=== PATIENT | female | born 1985 | race Caucasian/White ===

== ENCOUNTER 2024-07-21 16:45 | Emergency (ER) | payer OTHER, SELFPAY ==
[2024-07-21 17:01] VITALS: BP 122/85; PULSE 85; RESP 16; TEMP 36.9; O2SAT 99; BMI 34.3
[2024-07-21 17:17] LABS: Microscopic, Urine URINE MICROSCOPIC (MICROSCOPIC)
[2024-07-21 17:17] LABS: Basophils # 0.1 K/mm3 (0-0.2); Basophils % 0.7 % (0.1-2.0); Eosinophils # 0.1 K/mm3 (0.0-0.4); Eosinophils % 1.2 % (0.1-12.0); Hematocrit 40.3 % (37.0-47.0); Hemoglobin 13.4 g/dL (12.2-16.2); Lymphocytes % 28.7 % (10-50); Mean Corpuscular HGB Conc 33.3 g/dL (31.8-35.4); Mean Corpuscular Hemoglobin 28.4 pg (27.0-31.2); Mean Corpuscular Volume 85.4 fl (81-99); Monocytes # 0.7 K/mm3 (0.1-1.0); Monocytes % 9.8 % (1.7-9.3); Neutrophils # 4.1 K/mm3 (1.8-7.8); Neutrophils % 59.5 % (37.0-80.0); Nucleated Red Blood Cells # 0 10^3/uL; Nucleated Red Blood Cells % 0 %; Platelet Count 291 K/mm3 (142-424); Red Blood Count 4.72 M/mm3 (4.20-5.40); Red Cell Distribution Width 13.2 % (11.5-17.5); Red Cell Distribution Width-SD 41.7 fL; White Blood Count 6.9 K/mm3 (4.8-10.8)
[2024-07-21 17:29] LABS: Albumin Level 3.7 g/dl (3.5-5.0); Chloride 105 mmol/L (98-107); Sodium 139 mmol/L (136-145)
[2024-07-21 17:32] LABS: Alanine Aminotransferase 24 U/L (12-78); Albumin/Globulin Ratio 1.2 (1.1-1.8); Alkaline Phosphatase 68 U/L (38-126); Aspartate Amino Transferase 26 U/L (14-36); Bilirubin,Total 0.6 mg/dl (0.2-1.3); Blood Urea Nitrogen 8 mg/dl (7-17); Calcium 8.5 mg/dl (8.4-10.2); Carbon Dioxide 28 mmol/L (22.0-30.0); Creatinine Clearance Estimated 163 mL/min (50-200); Estimated Glomerular Filt Rate 93 ml/min (>60); GFR (African American) 112 ML/MIN (>60); Glucose 103 mg/dl (74-100); Lipase 95 U/L (23-300); Total Protein,Serum 6.7 g/dl (6.3-8.2)
[2024-07-21 17:45] LABS: Appearance,Urine CLEAR (Clear); Bilirubin,Urine Negative (Negative); Blood, Urine Negative (Negative); Color,Urine YELLOW (Yellow); Glucose,Urine (UA) Negative (Negative); Ketones,Urine Negative (Negative); Leukocyte Esterase,Urine 2+ (Negative); Nitrate,Urine Negative (Negative); Protein,Urine Negative (Negative); Urobilinogen,Urine 0.2 EU/dl (0.2)
--- NOTE | 2024-07-21 17:45 | CT_ITS ---
PROCEDURE INFORMATION: Exam: CT Abdomen And Pelvis With Contrast Exam date and time: 07/21/2024 6:26 PM Age: 39 years old Clinical indication: Nausea and vomiting; Additional info: Lower abd pain, n, v, d TECHNIQUE: Imaging protocol: Computed tomography of the abdomen and pelvis with contrast. Radiation optimization: All CT scans at this facility use at least one of these dose optimization techniques: automated exposure control; mA and/or kV adjustment per patient size (includes targeted exams where dose is matched to clinical indication); or iterative reconstruction. Contrast material: ISOVUE; Contrast volume: 75 ml; Contrast route: IV; COMPARISON: No relevant prior studies available. FINDINGS: Diaphragm: Small hiatal hernia Liver: Normal. No mass. Gallbladder and biliary ducts: Cholecystectomy Pancreas: Normal. No ductal dilation. Spleen: Normal. No splenomegaly. Adrenal glands: Normal. No mass. Kidneys and ureters: There is no evidence of renal or ureteral calcifications. Stomach and bowel: Sutures in the stomach. Diverticulosis of the rectosigmoid. No diverticulitis. No obstruction Appendix: Normal appendix Intraperitoneal space: Unremarkable. No free air. No significant fluid collection. Vasculature: Unremarkable. No abdominal aortic aneurysm. Lymph nodes: Unremarkable. No enlarged lymph nodes. Urinary bladder: Unremarkable as visualized. Reproductive: IUD in good position in the uterus Bones/joints: Unremarkable. No acute fracture. Soft tissues: Unremarkable. IMPRESSION: No acute findings.
--- NOTE | 2024-07-21 17:46 | ED_ITS ---
<Statement entered by Mattie Cifuentes DO - 07/21/24 23:33> I was consulted by the TATI, and we discussed the complexity of the problems being addressed. I approved the treatment and management plan for this patient's care in the emergency department, thus performing a substantive portion of the medical decision making. Mattie Cifuentes DO Discharge Plan Disposition Patient Disposition: Home, Self-Care Condition: Good Prescriptions Prescriptions: New ondansetron 4 mg tablet,disintegrating 4 mg PO Q6H PRN (Reason: nausea and vomiting) Qty: 10 0RF Clinical Impressions Clinical Impression: Abdominal pain, Nausea vomiting and diarrhea Instructions Patient Instructions: DI for Acute Abdominal Pain Print Language Print Language: Spanish Discharge ED Provider: Mattie Cifuentes General Adult HPI General Chief complaint: Abdominal Pain Stated complaint: Stomach pain,Denies V/N Time Seen by Provider: 07/21/24 17:39 Mode of Arrival: Ambulatory Source of Information: Patient Limitations: No Limitations Description of Symptoms (Recalled from ER Triage Doc. by RN): pt to the ED with lower abdominal pain that radiates to her RUQ and is a sharp pain at times with nausea and vomiting since last night. pt also reports she notices her pain will elevate her heart rate at times which makes her nervous because she has a history of POTS History of Present Illness HPI narrative: 39-year-old female presents emergency department with a 1 to 2-day history of nausea vomiting abdominal pain and diarrhea, with poor p.o. intake. Patient states that around Saturday night she started feeling nauseous , after she ate some Maced[place] , she started having abdominal cramping/pain yesterday night, as well as having vomiting, and diarrhea today, somewhat localized to the right upper quadrant, but mainly diffuse. Denies any urinary type symptomatology, denies melena, hematochezia, hematemesis, or hemoptysis, denies any chest pain shortness of breath, denies any fever or chills, cough or congestion. Does endorse recent sick contacts being work . Other past medical history consistent with PCOS, POTS syndrome, prior history of gastric sleeve, denies any alcohol tobacco or drug use. Initial triage vitals are unremarkable. Onset (ago): day(s) Related Data Previous Rx's ?Medication ?Instructions ?Recorded ondansetron 4 mg disintegrating 4 mg PO Q6H PRN nausea and 07/21/24 tablet vomiting #10 tabs Allergies Allergy/AdvReac Type Severity Reaction Status Date / Time amoxicillin (From Augmentin) Allergy Rash Verified 07/21/24 17:07 clavulanic acid (From Allergy Rash Verified 07/21/24 17:07 Augmentin) Sulfa (Sulfonamide Allergy Swelling Verified 07/21/24 17:07 Antibiotics) of the Eye [facility] Disclaimer: The information contained in this section may have been updated after the patient was seen, as this information can be updated by other users. Social History Smoking Status: Current every day smoker alcohol intake: never current occupational status: other Travel in the last 8 weeks: None ROS Obtained: Yes All systems reviewed & no additional complaints except as documented Physical Exam General General appearance: alert and in no apparent distress Head Head exam: atraumatic and normocephalic Eye Eye exam: Present PERRL and EOMI ENT ENT exam: Present mucous membranes moist Neck Neck exam: Present normal inspection Chest Chest inspection: Present normal inspection and symmetric chest wall rise Respiratory Respiratory exam: Present normal lung sounds bilaterally; Absent respiratory distress Cardiovascular Cardiovascular exam: Present regular rate and normal rhythm Abdominal Exam Abdominal exam: Present soft and tenderness Abdominal tenderness: Present epigastrium, diffuse and mild Comment: There is mild diffuse abdominal pain to palpation, with some increased pain to the epigastrium region. Extremities Exam Extremities exam: Present normal inspection Neurological Exam Neurological exam: Present alert and oriented X3 Psychiatric Psychiatric exam: Present normal affect Skin Skin exam: Present warm and dry Medical Decision Making Medical Records Medical records reviewed: Yes I reviewed the patient's medical records. Screening: Per USPSTF and CDC recommendations, given the prevalence of disease in our region, it is our hospital?s policy to screen for HIV and viral Hepatitis for all patients aged 18 and over and those with ongoing risk factors. Yvon Inquiry Pt receiving controlled substance: No Yvon was queried for this patient: No Vital Signs: 07/21/24 17:01 Temperature 98.5 F Temperature Source Oral Pulse Rate [Left Radial] 85 Respiratory Rate 16 Blood Pressure [Right Arm] 122/85 Blood Pressure Mean [Right Arm] 97 Blood Pressure Source [Right Arm] Automatic Cuff Blood Pressure Position [Right Arm] Sitting 02 Sat by Pulse Oximetry 99 Oxygen Delivery Method Room Air Lab Data Lab results reviewed: Yes I reviewed the patient's lab results. Lab Results 07/21/24 17:09: WBC 6.9, RBC 4.72, Hgb 13.4, Hct 40.3, MCV 85.4, MCH 28.4, MCHC 33.3, RDW 13.2, Plt Count 291, MPV 10.0, Neut % (Auto) 59.5, Lymph % (Auto) 28.7, Noble % (Auto) 9.8 H, Eos % (Auto) 1.2, Baso % (Auto) 0.7, Neut # (Auto) 4.1, Lymph # (Auto) 2.0, Noble # (Auto) 0.7, Eos # (Auto) 0.1, Baso # (Auto) 0.1, Sodium 139, Potassium 4.0, Chloride 105, Carbon Dioxide 28, Anion Gap 10.0, BUN 8, Creatinine 0.70, Estimated Creat Clear 163, Estimated GFR 93, Est GFR ( Amer) 112, Glucose 103 H, Calcium 8.5, Total Bilirubin 0.6, AST 26, ALT 24, Alkaline Phosphatase 68, Total Protein 6.7, Albumin 3.7, Globulin 3.0, Albumin/Globulin Ratio 1.2, Lipase 95 07/21/24 17:14: Urine Color Yellow, Urine Appearance Clear, Urine pH 7.0, Ur Specific [place] 1.010, Urine Protein Negative, Urine Glucose (UA) Negative, Urine Ketones Negative, Urine Blood Negative, Urine Nitrate Negative, Urine Bilirubin Negative, Urine Urobilinogen 0.2, Ur Leukocyte Esterase 2+ A, Urine RBC 3-5, Urine WBC 3-5, Ur Squamous Epith Cells 3-5, Urine Bacteria Trace 07/21/24 17:09 07/21/24 17:09 Orders (Tests/Meds): ED MEDICATIONS Generic Name Dose Route Start Last Admin Trade Name Freq PRN Reason Stop Dose Admin Sodium Chloride 10 ml 07/21/24 18:28 07/21/24 18:29 Sodium Chloride 0.9% 10ml Syr (Rad Only) IV 08/20/24 18:27 10 ml NEEDED PRN Administration Maintain IV Site Discontinued Medications Generic Name Dose Route Start Last Admin Trade Name Freq PRN Reason Stop Dose Admin Diphenhydramine HCl 50 mg 07/21/24 18:17 07/21/24 18:20 Diphenhydramine 50mg/Ml Vial IV 07/21/24 18:18 50 mg ONCE ONE Administration Iopamidol 75 ml 07/21/24 18:28 07/21/24 18:29 Iopamidol-370 (76%);100ml Bottle IV 07/21/24 18:29 75 ml ONCE ONE Administration Morphine Sulfate 4 mg 07/21/24 17:45 07/21/24 18:10 Morphine 4mg/Ml Syringe IV 07/21/24 17:46 4 mg ONCE ONE Administration Ondansetron HCl 4 mg 07/21/24 17:45 07/21/24 18:10 Ondansetron 4mg/2ml Vial IV 07/21/24 17:46 4 mg ONCE ONE Administration ORDERS Category Date Time Status CT abdomen pelvis w con Stat Cat Scan 07/21/24 17:45 Completed Complete Blood Count Auto Diff Stat Lab 07/21/24 17:09 Completed Comprehensive Metabolic Panel Stat Lab 07/21/24 17:09 Completed Lipase Stat Lab 07/21/24 17:09 Completed Urinalysis and Microscopic Stat Lab 07/21/24 17:14 Completed Urine Culture Stat Micro 07/21/24 17:14 Received Medical Decision Narrative: 39-year-old female presents emergency department abdominal pain nausea vomiting diarrhea, differential diagnose include not limited to, gastroenteritis, ileitis, colitis, acute UTI, acute pyelonephritis, nephrolithiasis, ureterolithiasis, pancreatitis, appendicitis, cholecystitis, cholelithiasis, choledocholithiasis. Discussed patient case with attending physician Will obtain basic laboratory studies, lipase level, urinalysis, CT ab pelvis with contrast, will give 4 mg morphine for pain and 4 mg IV Zofran for nausea. CBC and CMP are grossly unremarkable, lipase within normal limits. Urinalysis noted for 2+ leukocyte esterase. Patient received 4 mg IV morphine, did have some itching with this, give 50 mg IV Benadryl, I saw and examined the patient after this, patient did have some wheal formation around the IV site, unsure if this is from IV, or morphine administration. No signs of anaphylaxis shortness of breath at this time, she has no other new complaints. Patient has 3-5 RBCs, 3-5 WBCs, 3-5 squamous cells and trace urine bacteria. I reviewed the patient CT abdomen pelvis with contrast along the corresponding radiologic report, no acute findings. Reexamination of the patient at approximately 7:20 PM, patient is cleared to be discharged home to self-care, discussed all results with the patient over the bedside, laboratory studies unremarkable, urinalysis has some weeks and Estr[place], however patient does not have any dysuria or hematuria. Patient could be discharged home to self-care, most likely musculoskeletal in nature./Viral etiology. Will prescribe 4 mg p.o. Zofran sublingual as needed for nausea and vomiting. Patient voiced understanding agreed to plan/discharge plan. Patient will follow-up with PCP as directed. Strict ED return precaution given. Critical Care Critical Care Time Critical Care Time: No
[2024-07-21] MEDS: ONDANSETRON 4MG/2ML VIAL 4 MG IV (18:10)
[2024-07-21] MEDS: MORPHINE 4MG/ML SYRINGE 4 MG IV (18:10)
[2024-07-21] MEDS: diphenhydrAMINE 50MG/ML VIAL 50 MG IV (18:20)
[2024-07-21 18:23] LABS: Bacteria,Urine Trace /lpf
[2024-07-21] MEDS: SODIUM CHLORIDE 0.9% 10ML SYR (RAD ONLY) 10 ML IV (18:29)
[2024-07-21] MEDS: IOPAMIDOL-370 (76%);100ML BOTTLE 75 ML IV (18:29)
[2024-07-21 19:39] VITALS: BP 134/87; PULSE 72; RESP 16; TEMP 36.7; O2SAT 99
--- NOTE | 2024-07-23 09:52 | PC.NURSE ---
I discussed the final urine culture results with . No change in treatment plan needed at this time
== END 2024-07-21 19:41 | disposition home or self-care (01) ==
PROVIDERS: Emergency Provider Emergency Medicine
DX: R10.84 Generalized abdominal pain (principal); R11.2 Nausea with vomiting, unspecified; R19.7 Diarrhea, unspecified
CPT/HCPCS: 74177; 80053; 81001; 83690; 85025; 87086; 96374; 96375; 99285; J1200; J2270; J2405; Q9967

== ENCOUNTER 2024-07-27 09:39 | Outpatient (CLI) | payer OTHER, SELFPAY ==
--- NOTE | 2024-07-27 09:42 | XR_ITS ---
FINAL REPORT CLINICAL HISTORY: Lt wrist pain COMPARISON: None FINDINGS: AP, oblique, and lateral views of the left wrist were obtained. There is no prior exam for comparison. There is no acute fracture or dislocation. Multijoint degenerative change is present, most prominent involving the articulation between the scaphoid and the distal row of carpal bones. The soft tissues are normal. IMPRESSION: No acute osseous abnormality of the left wrist. Multijoint degenerative change, most pronounced involving the articulation between the scaphoid and the distal row of carpal bones. Reviewed, Interpreted and Dictated by Oriana Talavera MD Transcribed by Nadine Anderson Authenticated and [facility]
--- NOTE | 2024-07-27 09:42 | XR_ITS ---
FINAL REPORT CLINICAL HISTORY: Lt elbow pain COMPARISON: None FINDINGS: AP, oblique, and lateral views of the right elbow were obtained. There is no prior exam for comparison. There is no acute fracture or dislocation. Joint space is preserved. There is no joint effusion or other soft tissue abnormality. IMPRESSION: No acute osseous abnormality of the right elbow. Reviewed, Interpreted and Dictated by Oriana Talavera MD Transcribed by Nadnie Anderson Authenticated and [facility]
== END 2024-07-27 23:59 | disposition home or self-care (01) ==
LOC: RAD 09:39
PROVIDERS: Visit Provider Physician Assistant
DX: M25.532 Pain in left wrist (principal); M25.522 Pain in left elbow
CPT/HCPCS: 73080; 73110

== ENCOUNTER 2024-08-12 09:37 | Outpatient (CLI) | payer OTHER, SELFPAY ==
[2024-08-12 09:39] VITALS: BMI 34.3
--- NOTE | 2024-08-12 10:06 | ECG_ITS ---
APPROVED REPORT Exam: Resting ECG HR:80 bpm ECG Measurements Heart Rate 80 AXES MA 150 P 34 QRSd 89 QRS 9 QT 355 T 9 QTc 391 Conclusion SINUS RHYTHM MODERATE VOLTAGE CRITERIA FOR LVH, CONSIDER NORMAL VARIANT [MEETS CRITERIA IN ONE OF: R(aVL), S(V1), R(V5), R(V5/V6)+S(V1)] BORDERLINE ECG UNCONFIRMED REPORT Electronically signed by : Dilip Sage MD 08/16/2024 06:43:01
[2024-08-12 10:17] LABS: Basophils # 0.1 K/mm3 (0-0.2); Basophils % 0.8 % (0.1-2.0); Eosinophils # 0.2 Kmm3 (0.0-0.4); Eosinophils % 2.7 % (0.1-12.0); Hematocrit 40.9 % (37.0-47.0); Hemoglobin 13.8 g/dL (12.2-16.2); Immature Granulocytes # 0.02 10^3uL; Immature Granulocytes % 0.3 %; Lymphocytes # 2.2 K/mm3 (0.7-4.5); Lymphocytes % 27.9 % (10-50); Mean Corpuscular HGB Conc 33.7 g/dL (31.8-35.4); Mean Corpuscular Hemoglobin 29.1 pg (27.0-31.2); Mean Corpuscular Volume 86.3 fl (81-99); Mean Platelet Volume 9.7 fl (7.4-10.4); Monocytes # 0.6 K/mm3 (0.1-1.0); Monocytes % 7.9 % (1.7-9.3); Neutrophils # 4.7 K/mm3 (1.8-7.8); Neutrophils % 60.4 % (37.0-80.0); Nucleated Red Blood Cells # 0 10^3/uL; Nucleated Red Blood Cells % 0 %; Platelet Count 273 K/mm3 (142-424); Red Blood Count 4.74 M/mm3 (4.20-5.40); Red Cell Distribution Width 13.4 % (11.5-17.5); Red Cell Distribution Width-SD 42.4 fL; White Blood Count 7.8 K/mm3 (4.8-10.8)
[2024-08-12 10:28] LABS: Anion Gap 4.9 mEq/L (5-15); Blood Urea Nitrogen 6 mg/dl (7-17); Calcium 8.5 mg/dl (8.4-10.2); Carbon Dioxide 28 mmol/L (22.0-30.0); Chloride 109 mmol/L (98-107); Creatinine Clearance Estimated 190 mL/min (50-200); Estimated Glomerular Filt Rate 111 ml/min (>60); GFR (African American) 134 ML/MIN (>60); Glucose 81 mg/dl (74-100); Potassium 3.9 mmoL/L (3.5-5.1); Sodium 138 mmol/L (136-145)
[2024-08-12 11:02] LABS: HCG Qualitative, Serum Negative (Negative)
== END 2024-08-12 23:59 | disposition home or self-care (01) ==
LOC: PREOP 09:38
PROVIDERS: PCP Nurse Practitioner; Visit Provider Orthopaedic Surgery
DX: Z01.810 Encounter for preprocedural cardiovascular examination (principal); Z01.812 Encounter for preprocedural laboratory examination; R94.31 Abnormal electrocardiogram [ECG] [EKG]
CPT/HCPCS: 80048; 84703; 85025; 93005

== ENCOUNTER 2024-08-19 08:09 | Day surgery (SDC) | payer OTHER, SELFPAY ==
--- NOTE | 2024-08-11 10:51 | SUR.PREOP ---
Pt no-show for PAT appointment on 08/11. VM left requesting call to reschedule. Dr. Mortensen's office notified.
[2024-08-12 12:21] VITALS: BMI 34.3
[2024-08-19] VITALS (13 sets, daily range): BP systolic 105–157; BP diastolic 72–89; PULSE 72–104; RESP 16–22; TEMP 36.3–36.4; O2SAT 93–99
[2024-08-19 08:31] LABS: Urine Pregnancy, HCG Qual. Negative (Negative)
[2024-08-19] MEDS: LACTATED RINGERS 1000ML 1,000 ML 100 ML IV (08:57)
[2024-08-19] MEDS: CLINDAMYCIN PHOSPHATE/D5W 900 MG/50 ML PIGGYBACK 100 MG IV (10:40)
--- NOTE | 2024-08-19 12:14 | P.OP_ITS ---
Date of procedure: 08/19/24 Pre-op Diagnosis:: 1. Left carpal tunnel syndrome 2. Left cubital tunnel syndrome Post-op Diagnosis:: Same Procedure performed:: 1. Left endoscopic carpal tunnel release 2. Left ulnar nerve decompression at the elbow, cubital tunnel release Surgeon:: Paresh Mortensen DO Lens Coating Technician(s):: Pepito DOLL RAD TECHNOLOGIST:: Mango Milton Anesthesia: GETA Estimated blood loss (mL): 0 Operative findings:: See dictation Operative note:: Patient was identified preoperatively. Left upper extremity marked with yes my initials. Transferred operative suite placed upon the brain bed. General anesthesia workers compensation claims analyst airway secured. Left upper extremity prepped and draped normal sterile fashion. Once prepped and draped final operative timeout performed to identify proper patient procedure and extremity. Everyone involved the case agreed. There is no counter indications beginning. Did receive preoperative antibiotics. Marking pen was used to magi plan incision over the volar wrist for the endoscopic carpal tunnel and over the cubital tunnel at the left elbow. Esmarch was used to exsanguinate the extremity pneumatic tourniquet inflated to 250 mmHg. Attention was initially brought to the wrist skin knife was used to incise through the skin at the transverse carpal ligament retractors were placed dissection was taken down to identify the most proximal aspect of the transverse carpal ligament. Once this was identified the opening dilator followed by the larger dilator followed by the 4.0 mm sled was placed into the carpal tunnel. Camera was then introduced and the transverse carpal ligament clearly seen within the camera view. The endoscopic probe was utilized to identify the most distal aspect of the transverse carpal ligament rasp was used to remove the soft tissue from the undersurface. And then the hook blade from the [employer] endoscopic carpal tunnel set was introduced and under direct visualization transection of the transverse carpal ligament was performed. This was directly visualized. Irrigation of the wound performed. Skin closed with subcuticular Monocryl suture with a sterile dressing applied. Attention was then brought to the elbow. The elbow was flexed on the hand table bony landmarks were confirmed with the medial epicondyle and tip of the olecranon in the anatomical cubital tunnel. Skin knife was used incise through skin careful dissection taken down meticulously at the cubital tunnel to identify the ulnar nerve. Once this was identified I dissected very meticulously both proximally and distally for full release of Doyle's ligament and the cubital tunnel. Dissection was then taking proximally up to the arcade of [place] the aponeurotic band was located and released attention was then brought down through the cubital tunnel to distally the muscle fibers from the flexor digitorum superficialis facialis to the flexor carpi all naris were released to make sure there is no compression distally of these muscle fibers and fibrous bands once completely released both proximally and distally irrigation of the wound performed. Touching digitally the nerve there was a motor response at the wrist. The appearance of the nerve appeared normal. The there was however a dense fibrous tissue and scarring around the cubital tunnel prior to release. Irrigation of the wound performed deep layers closed with Vicryl subcuticular Monocryl Steri-Strips sterile dressing placed from wrist to mid upper arm. Patient waken anesthesia taken recovery in stable condition with a sling on Condition: stable Disposition: PACU Complications:: None apparent
--- NOTE | 2024-08-19 12:34 | P.PNANES_ITS ---
[facility] Anesthesia Record Part I Anesthesia Record I Intake, IV Amount: 700 Hydration: Adequate Estimated blood loss (mL): 0 Urine output (mL): 0 Blood Products used (#): none Blood Pressure: 157/88 SaO2: 95 Pulse Rate: 104 Airway Patency: Patent Respiratory Rate: 22 Temperature: 97.4 F Patient is:: Drowsy and Stable Stable to PACU at:: 12:28
--- NOTE | 2024-08-19 12:39 | EXP.ANES.I ---
[facility] Anesthesia Record Part I Anesthesia Record I Intake, IV Amount: 700 Hydration: Adequate Estimated blood loss (mL): 0 Urine output (mL): 0 Blood Products used (#): none Blood Pressure: 157/88 SaO2: 95 Pulse Rate: 104 Airway Patency: Patent Respiratory Rate: 22 Temperature: 97.4 F Patient is:: Drowsy and Stable Stable to PACU at:: 12:28
[2024-08-19] MEDS: KETOROLAC 30MG/ML VIAL 30 MG IV (12:48)
[2024-08-19] MEDS: HYDROMORPHONE 2MG/ML SYRINGE 0.5 MG IV ×4 (12:55→13:21)
[2024-08-19] MEDS: ONDANSETRON 4MG/2ML VIAL 4 MG IV (13:06)
[2024-08-19] MEDS: PROMETHAZINE HCL 25MG/ML 1ML VIAL 6.25 MG IV (13:18)
--- NOTE | 2024-08-19 13:35 | SUR.PHASEI ---
Patient's vital signs stable. Patient transported to post op at this time. Report given to KATARINA Pleitez. Pt still reports pain a 9/10 on pain scale after 2mg Dilaudid. Patient states that arm continues to throb while drinking and tolerating her pepsi. Pt also resting comfortably before transporting.
--- NOTE | 2024-08-20 13:41 | EXP.ANES.II ---
[facility] Anesthesia Record Part II Anesthesia Record Part II Discharge Time: 13:24 Destination: Surgical Day Care (OP Surgery) PACU nurse assessment reviewed?: Yes Patient Condition:: Good Anesthesia Complications:: None Swallowing reflex intact?: Yes Airway Patency: Patent Cyanosis?: No Blood Pressure: 132/72 SaO2: 98 Respiratory Rate: 18 Pulse Rate: 84 Temperature: 97.4 F Mental Status: Alert & Oriented Pain level:: 8 Nausea and/or vomitting:: Nauseated Intake, IV Amount: 0 Hydration: Adequate
[2024-08-20 13:42] VITALS: BP 132/72; PULSE 84; RESP 18; TEMP 36.3; O2SAT 98
== END 2024-08-19 13:55 | disposition home or self-care (01) ==
PROVIDERS: PCP Nurse Practitioner; Visit Provider Orthopaedic Surgery
PROC: (CPT 64721; principal; 2024-08-19 09:00)
DX: G56.02 Carpal tunnel syndrome, left upper limb (principal); G56.22 Lesion of ulnar nerve, left upper limb
CPT/HCPCS: 29848; 64718; 81025; 96374; J0736; J1100; J1171; J1885; J2250; J2405; J2550; J3010; J7120

== ENCOUNTER 2024-10-04 19:33 | Emergency (ER) | payer MEDICAID, SELFPAY ==
[2024-10-04 19:42] VITALS: BP 138/85; PULSE 80; RESP 20; TEMP 36.7; O2SAT 98; BMI 40.8
--- OUTSIDE RECORDS SUMMARY | 2024-10-04 19:43 | XMS_ITS | Data Portability ---
Author Organization [place] [facility] [place] & [place] [facility] Address [address] [place] [address] Assessment Encounter Date Assessment Date Assessment LastModified by Organization Details LastModified Time 09/05/2023 09/05/2023 Still having ant e pressure and tightness in the chest as well as palpitations and fluttering of the heart. She has been to the emergency room secondary to chest pain. Most recently she was in there the other day. Everything checked out okay. Negative enzymes at that time. CBC within normal limits as was the basic metabolic panel. She has a history of having an elevated left ventricular end-diastolic pressure. EKG showed normal sinus rhythm with nonspecific changes. she has not started the metoprolol yet. The 3 day Zio monitor from 08/21 to 08/24 showed normal sinus rhythm with a heart rate 52-143 with an average of 83 and normal sinus rhythm with a for triggers that she did. Meds and chart reviewed in full today. She did not get the echocardiogram and Myoview. May have to consider going straight to cardiac catheterization if she continues to have symptoms despite being on the metoprolol. I am also going to do a Medrol Dosepak. Follow-up in 1 week in Cardiology Clinic. Meds and chart reviewed in full today Patient did not get the echocardiogram and Myoview secondary to cost. Continue current medications Risk factor modification Recommend LDL less than 100 Blood work as per primary care Avoid excessive caffeine Metoprolol ER 25 mg daily Medrol Dosepak Monitor cardiac symptoms If symptoms are not improved, consider cardiac catheterization Follow-up in Cardiology Clinic in 1-2 weeks EKG showed normal sinus rhythm with nonspecific ST and T changes Zio monitor for 3 days from 08/22/2023 to 08/25/2023 with normal sinus rhythm with a heart rate 52-143 with an average of 83 and normal sinus rhythm on the for triggers that she did [email or web address] Not available 09/05/2023 10:59:37 09/12/2023 09/12/2023 Patient Educatio n was printed, I have reviewed the Past Medical, Family, and Social Histories along with ROS and all orders in today's record, and have noted any changes. Medications, charts and records reviewed in full today. - blood pressure 110/84, heart rate 92, weight 287 lb. This is an increase of 11 lb since last visit. Oxygen saturation 99% on room air. EKG declined by patient. - MONITOR: 08/22/2023 to 08/25/2023 with normal sinus rhythm with a heart rate 52-143 with an average of 83. - Plan: Advised initially to go to emergency department for further evaluation and management, although she reports that she has not having active chest pain. Nitroglycerin from emergency department was effective in improving chest pain so we will prescribe this. Safety education provided for nitroglycerin. EKG at follow-up. Start nitroglycerin. Keep follow-up in one week. If the patient is continuing to have chest discomfort, the patient may benefit from hospitalization and left heart catheterization. - -Continue other current medications. -Continue aggressive risk factor modification. -Recommend LDL less than 100. -Encouraged regular exercise and activity. - This note was dictated using Solum software. If something is unclear, or does not make sense, please do not hesitate to contact our office at [phone] for clarification. Not available 09/12/2023 13:09:02 09/16/2023 09/16/2023 Patient Educatio n was printed, I have reviewed the Past Medical, Family, and Social Histories along with ROS and all orders in today's record, and have noted any changes. Medications, charts and records reviewed in full today. - blood pressure 110/80, heart rate 80, weight 285 lb. Oxygen saturation 98% on room air. EKG refused by patient today. - MONITOR: 08/22/2023 to 08/25/2023 with normal sinus rhythm with a heart rate 52-143 with an average of 83. - Plan: Hospitalize at [facility]. Rule out acute coronary syndrome. Echocardiogram. Plan for left heart catheterization tomorrow. Follow-up one week. - -Continue other current medications. -Continue aggressive risk factor modification. -Recommend LDL less than 100. -Encouraged regular exercise and activity. - This note was dictated using Solum software. If something is unclear, or does not make sense, please do not hesitate to contact our office at [phone] for clarification. Not available 09/16/2023 10:17:24 09/30/2023 09/30/2023 Patient Educatio n was printed, I have reviewed the Past Medical, Family, and Social Histories along with ROS and all orders in today's record, and have noted any changes. Medications, charts and records reviewed in full today. - blood pressure 108/70, heart rate 82, weight 286.4 lb. Oxygen saturation 96% on room air. - MONITOR: 08/22/2023 to 08/25/2023 with normal sinus rhythm with a heart rate 52-143 with an average of 83. LHC: 09/2023 revealed normal coronary arteries. Normal LVEDP and normal LVEF. ECHO: - Plan: CTA head and neck. Creatinine with GFR. Keep initial consultation as scheduled with Neurology. Follow-up in 4 to 6 weeks. - CT chest in January 2024 to confirm stability of pulmonary nodules and lymph nodes. - -Continue other current medications. -Continue aggressive risk factor modification. -Recommend LDL less than 100. -Encouraged regular exercise and activity. - This note was dictated using Solum software. If something is unclear, or does not make sense, please do not hesitate to contact our office at [phone] for clarification. Not available 09/30/2023 16:42:11 Plan of Treatment Reminders Order Date Submit Date Provider Last Modified By Organization Details Last Modified Time Details Appointments None recorded. Lab creatinine w/ estimated GFR (eGFR), serum or plasma 2023 024 [email or web address] 2 [facility] (Registration ), [address] [place] [address] , [place], [address], 4 07:40:27 Referral None recorded. Procedures None recorded. Surgeries None recorded. Imaging CT, angiogram, head + neck, w/ contrast 2023 024 [email or web address] 2 [place] (Centralized Scheduling), [address], [place], [address], 4 07:41:55 CT, angiogram, head, w/wo contrast 2023 024 [email or web address] 2 [place] (Centralized Scheduling), [facility] [place], [address], 4 07:40:53 CT, angiogram, neck, w/ contrast 2023 024 [email or web address] 2 [place] (Centralized Scheduling), [facility] [address], [place], [address], 4 07:41:21 Medication Orders nitroglycer in 0.4 mg sublingual tablet [facility] [place] [address] [place] [address], [address], 4 13:09:57 Medrol ([place]) 4 mg tablets in a dose pack 2023 024 [email or web address] [email or web address] [facility] - [address], [address], 4 08:42:41 metoprolol succinate ER 25 mg tablet,exte nded release 24 hr 2023 024 [email or web address] [facility] - [address], [address], 4 10:59:38 Patient TargetsNo targets recorded. Patient Instructions Encounter Date Encounter Id Patient Instructions Last Modified By Organization Details Last Modified Time 09/30/2023 [id number] orthostatic vitals* Not available 09/30/2023 16:42:52 Reason for Referral None Reported. Results Created Date Observation Date Name Description Value Unit Range Abnormal Flag Note LastModifiedBy Organization Detail LastModifiedTime 08/22/19 elect rocar diogr am No observ ation record ed. KENDY Mv [address], [place], [address], 08/22/2023 09:04:44 08/22/19 24 08/22/2023 elect rocar diogr am No observ ation record ed. [email or web address] Not Available 2023 13:15:02 09/19/19 24 08/22/2023 cardi ac monit or No observ ation record ed. [email or web address] Not Available 2023 15:47:25 Result Notes None recorded. Problems Name Problem SNOMED Code Status Onset Date Resolution Date Notes Provider Name and Address Organization Details Recorded Time Strain of muscle of left shoulder 1586069026800 9105 Active 2021 Ellyn damon, [place] [facility] [place] 4 08:59:13 Bilateral plantar fasciitis 2637777487099 9108 Active 2021 Ellyn Woods null, [place] [facility] [place] 4 08:59:13 Cyst of left ovary 1949729903658 9108 Active Ellyn Woods [place] [facility] 4 08:59:13 Influenza vaccine needed 4724917928159 Active 2016 Ellyn damon[place] [facility] 4 08:59:13 Past history of premature delivery 898565395 Active 2016 Ellyn damon [place] [facility] 4 08:59:13 Body mass index 30+ - obesity 333618022 Active 2020 Ellyn damon [place] [facility] 4 08:59:13 Serum iron below reference range 848311123 Active 2020 Ellyn Knarr null[place] 4 08:59:13 Maternal obesity complicatin g , childbirth and the puerperium, antepartum 013952149886 Active 2016 Ellyn Woods null[place] [facility] 4 08:59:13 Peroneus brevis tenosynovit is 599843192 Active 2021 Ellyn Woods [place] 4 08:59:13 Sciatica 84541364 Active 2017 Ellyn Woods null[place] 4 08:59:13 Muscle weakness 24673895 Active 2023 Ellyn Woods [place] 4 08:59:13 Anemia 671460678 Active 2018 Ellyn Woods [place] 4 08:59:13 dysrhythmia 192364524 Active Ellyn Woods [place] 4 08:59:13 Chronic low back pain 894277436 Active 2020 Ellyn Woods [place] 4 08:59:13 Calcaneal spur of left foot 4857050564580 09 Active 2021 Ellyn Woods [place] 4 08:59:13 Calcaneal spur of right foot 2482380648111 00 Active 2021 Ellyn Woods [place] 4 08:59:13 Influenza-l nima symptoms 256666429 Active 2021 Ellyn Woods [place] 4 08:59:13 Restless legs 23505467 Active 2019 Ellyn Woods [place] 4 08:59:13 History of sleeve gastrectomy 5176019349969 07 Active Ellyn Woods [place] [facility] 4 08:59:13 Vitamin D deficiency 93869160 Active 2016 Ellyn Woods [place] [facility] 4 08:59:13 Iron deficiency 56374096 Active 2020 Ellyn Woods null[place] 4 08:59:13 Depressive disorder 16920570 Active 2018 Ellyn Woods null[place] 4 08:59:13 Harmful pattern of use of cannabis 74509040 Active Ellyn Woods [place] [facility] 4 08:59:13 Chronic sinusitis 42174445 Active 2019 Ellyn Woods [place] & [place] 4 08:59:13 Dizziness 241966082 Active 2023 Ellyn Woods [place] & [place] 4 08:59:13 Itching 951549874 Active Ellyn Woods null[place] [facility] & [place] 4 08:59:13 Bacterial vaginosis 502300194 Active 2021 Ellyn Woods null[place] [facility] 4 08:59:13 Chronic headache disorder 417940766 Active 2023 Ellyn Woods null[place] 4 08:59:13 High risk 84701329 Active 2016 Ellyn Woods null[place] [facility] 4 08:59:13 Foot pain 30605809 Active Ellyn Streeterarr [place] [facility] & [place] 4 08:59:13 Anxiety 23508067 Active Ellyn Streeterarr null[place] [facility] 4 08:59:13 Cough 00616952 Active 2021 Ellyn damon, [place] - [facility] - & [place] 4 08:59:13 Pityriasis versicolor 15663209 Active 2021 Ellyn damon, [place] - [facility] - [place] & [place] 4 08:59:13 Pain of joint 37677739 Active 2017 Ellyn damon, [place] - [facility] - [place] & [place] 4 08:59:13 Uses oral contracepti on 2733631 Active Ellyn damon, [place] - [facility] - [place] & [place] 4 08:59:13 History of bariatric surgical procedure 683550216 Active 2016 Ellyn damon, [place] - [facility] - [place] & [place] 4 08:59:13 Allergic disposition 347926062 Active 2018 Ellyn damon, [place] - [facility] - [place] & [place] 4 08:59:13 Acid reflux 474316596 Active Ellyn damon[place] [facility] [place] & [place] 4 08:59:13 Osteoarthri tis of midfoot 175713137 Active 2021 El[place] damon[place] [facility] & [place] 4 08:59:13 Prediabetes 604673297 Active 2020 Ellyn damon, [place] - [facility] - [place] & [place] 4 08:59:13 Normal 41360010 Active 2016 Ellyn Woods null[place] 4 08:59:13 76358747 Active 2016 Ellyn Woods null[place] 4 08:59:13 Malpresenta tion of fetus 53284353 Active Ellyn Woosd null[place] & [place] 4 08:59:13 COVID-19 941644175 Active 2019 Ellyn Woods null[place] [facility] & [place] 4 08:59:13 Suspected COVID-19 212713277 Active 2019 Ellyn Woods null[place] [facility] & [place] 4 08:59:14 Dyspnea on exertion 13748767 Active 2023 Torres Lima MD [facility],[address], [address], [place] [facility] & [place] 4 09:19:34 Tachycardia 6902873 Active 2023 Torres Lima MD [facility],[address], [address], [place] [facility] & [place] 4 09:20:23 Obesity 798210841 Active 2023 Torres Lima MD [facility] te [address] [place] [address], [address], [place] [facility] & [place] 4 12:43:47 Edema 610297588 Active 2023 Torres Lima MD [facility],Josiaen te [address] [place] [address], [address], [place] [facility] & [place] 4 12:43:52 Palpitation s 63768011 Active 2023 Torres Lima MD [facility],Josiane te [address] [place] [address], [phone], [place] [facility] & [place] 4 12:44:17 Chest pain 45753333 Active 2023 Torres Lima MD [facility] te [address] [place] [address], [phone], [place] [facility] & [place] 4 09:54:28 Notes:Some problems listed i n Documents: #[id number], #[id number], #[id number], #[id number] could not be added to this patient's chart. Please review these documents and add these problems to the patient's chart manually as needed. Problem Notes None recorded. Procedures Surgical History Date Name Laterality Status Provider Name and Address Organization Details Recorded Time 04/08/19 15 Other completed Toya Whittingtonis [place] [facility] [place] & [place] 07/16/2024 14:08:59 04/08/19 14 Abdominal Surgery completed Toya Whittingtonis [place] 07/16/2024 14:09:00 04/08/19 13 Sinus Surgery completed Toya Whittingtonis [place] 07/16/2024 14:09:00 Cholecystectomy completed Ellyn Ferdinandarr [place] & [place] 08/22/2023 09:02:09 operation on stomach completed Ellyn Ferdinandarr [place] [facility] & [place] 08/22/2023 09:02:36 Tonsillectomy/Adeno idectomy completed Ellyn Ferdinandarr [place] [facility] & [place] 08/22/2023 09:02:46 Cardiac Catheterization completed Ellyn Ferdinandarr [place] [facility] & [place] 08/22/2023 09:03:03 Knee arthroscopy/surgery completed Ellyn Ferdinandarr [place] - [facility] - [place] & [place] 08/22/2023 09:03:21 Ankle arthroscopy/surgery completed Ellyn Streeterarr [place] - [facility] - [place] & [place] 08/22/2023 09:03:31 nasal sinus procedure completed Ellyn Streeterarr [place] - [facility] - [place] & [place] 08/22/2023 09:04:05 Cardiac Catheterization completed Ellyn Ferdinandarr [place] [facility] [place] & [place] 09/30/2023 14:34:20 Imaging Results None recorded. Procedure Notes None recorded. Medical Equipment None Reported. Allergies Allergen ID Allergen Name Allergen Category Reaction Reaction Severity Criticality Documentation Date Start Date Code Code System Note Provider Name and Address Organization Details Recorded Time 214943 Substance with sulfonami de structure and antibacte rial mechanism of action (substanc e) medicatio n hives Not available Not available 08/22/20232012 38900 8003 SNOMED Ellyn FerdinandBRUNILDA simon [facility] & [place] 4 08:58:50 467203 Augmentin medicatio n rash Not available Not available 08/22/2023 62323 2 RxNorm BRUNILDA Snider [facility] & [place] 4 08:58:50 231368 honey bee venom environme nt Not available Not available Not available 08/22/2023 42723 7 RxNorm BRUNILDA Snider [facility] & [place] 4 08:58:50 Medications Name Sig Start Date Stop Date Status Note LastModified by Organization Details LastModified Time cyclobenzap rine 10 mg tablet TAKE ONE (1) TABLET FOUR (4) TIMES A DAY BY ORAL ROUTE NEEDED FOR 10 DAYS, FOR BACK SPASM. active Not Available Not Available No t Available amoxicillin 500 mg capsule 03/18 completed Not Available Not Available Not Available Mirena 21 mcg/24 hr (up to 8 years) 52 mg intrauterin e device Take 1 device by intrauter ine route. 2018 active Not Available Not Available Not Avai lable metformin 500 mg tablet Take 0.5 tablets every day by oral route for 30 days. 08/13 completed Not Available Not Available Not Available potassium chloride ER 10 mEq capsule,ext ended release TAKE ONE (1) CAPSULE EVERY DAY BY ORAL ROUTE IN THE MORNING active Not Available Not Available No t Available Aviane 0.1 mg-20 mcg tablet take 1 tablet by oral route once daily for 28 days 08/10 completed Not Available Not Available Not Available prednisone 10 mg tablet 03/18 completed Not Available Not Available Not Available gabapentin 600 mg tablet 11/28 completed Not Available Not Available Not Available cefuroxime axetil 250 mg tablet Take 1 tablet every 12 hours by oral route for 10 days. 06/04 completed Not Available Not Available Not Available Depo-Medrol 40 mg/mL suspension for injection Take 40 mg by injection route. 12/11 completed Not Available Not Available Not Available torsemide 20 mg tablet TAKE ONE (1) TABLET EVERY DAY BY ORAL ROUTE IN THE MORNING FOR 30 DAYS, FOR SWELLING. active Not Available Not Available No t Available nabumetone 750 mg tablet TAKE ONE (1) TABLET BY MOUTH TWO (2) TIMES DAILY. 08/21 completed Not Available Not Available Not Available clindamycin HCl 300 mg capsule 08/10 completed Not Available Not Available Not Available albuterol sulfate 2.5 mg/3 mL (0.083 %) solution for nebulizatio n 11/28 completed Not Available Not Available Not Available trazodone 50 mg tablet take 1 tablet by oral route once a day (at bedtime) 08/10 completed Not Available Not Available Not Available cetirizine 10 mg tablet TAKE ONE (1) TABLET EVERY DAY BY ORAL ROUTE FOR 90 DAYS. active Not Available Not Available No t Available azithromyci n 250 mg tablet TAKE TWO (2) TABLETS (500 MG) BY ORAL ROUTE ONCE DAILY FOR ONE (1) DAY THEN ONE (1) TABLET (250 MG) BY ORAL ROUTE ONCE DAILY FOR FOUR (4) DAYS active Not Available Not Available No t Available ibuprofen 800 mg tablet take 1 tablet by oral route every 6 to 8 hours prn pain 08/10 completed Not Available Not Available Not Available tizanidine 4 mg tablet TAKE ONE (1) TABLET BY MOUTH NIGHTLY NEEDED. 08/21 completed Not Available Not Available Not Available fluconazole 150 mg tablet TAKE ONE TABLET BY MOUTH, MAY REPEAT IN THREE (3) DAYS IF NEEDED active Not Available Not Available No t Available Fiorinal 50 mg-325 mg-40 mg capsule Take 1 capsule every 4 hours by oral route. 08/29 completed Not Available Not Available Not Available clomiphene citrate 50 mg tablet Take 2 tablets each day by oral route on cycle days 5-9 11/28 completed Not Available Not Available Not Available hydrocodone 5 mg-acetamin ophen 325 mg tablet TK 1 T PO Q 4-6 H PRF PAIN 08/29 completed Not Available Not Available Not Available Celestone Soluspan 6 mg/mL suspension for injection Take 6 mg by injection route. 05/01 completed Not Available Not Available Not Available promethazin e 12.5 mg tablet Take 1 tablet as needed by oral route as directed. 11/28 completed Not Available Not Available Not Available ondansetron HCl 4 mg tablet 08/10 completed Not Available Not Available Not Available prednisone 20 mg tablet TAKE ONE (1) TABLET EVERY DAY BY ORAL ROUTE FOR FIVE (5) DAYS. 08/21 completed Not Available Not Available Not Available Prilosec 20 mg capsule,del ayed release take 1 capsule (20 mg) by oral route once daily before a meal 08/10 completed Not Available Not Available Not Available Pyridium 200 mg tablet Take 1 tablet 3 times a day by oral route for 2 days. 12/26 completed Not Available Not Available Not Available clobetasol 0.05 % topical cream APPLY A THIN LAYER TO THE AFFECTED AREA(S) BY TOPICAL ROUTE TWO (2) TIMES PER DAY active Not Available Not Available No t Available metronidazo le 500 mg tablet Take 1 tablet twice a day by oral route with meals for 7 days. 12/27 completed Not Available Not Available Not Available phentermine 37.5 mg tablet TAKE ONE (1) TABLET EVERY DAY BY ORAL ROUTE FOR 30 DAYS. 04/25 completed Not Available Not Available Not Available acetaminoph en 300 mg-codeine 30 mg tablet 11/28 completed Not Available Not Available Not Available doxepin 10 mg capsule TAKE ONE (1) CAPSULE EVERY DAY BY ORAL ROUTE NEEDED, FOR INSOMNIA. active Not Available Not Available No t Available ciprofloxac in 500 mg tablet TAKE ONE (1) TABLET EVERY 12 HOURS BY ORAL ROUTE FOR 7 DAYS. active Not Available Not Available No t Available hydrocodone 10 mg-acetamin ophen 325 mg tablet 08/21 completed Not Available Not Available Not Available omeprazole 40 mg capsule,del ayed release TAKE ONE (1) CAPSULE EVERY DAY BY ORAL ROUTE FOR 90 DAYS. active Not Available Not Available No t Available aspirin 81 mg tablet,manfred yed release Take 2 tablets every day by oral route as directed. active Not Available Not Available No t Available tramadol 50 mg tablet 08/21 completed Not Available Not Available Not Available ondansetron 8 mg disintegrat ing tablet PLACE ONE (1) TABLET TWICE A DAY BY TRANSLING UAL ROUTE NEEDED FOR 10 DAYS, FOR NAUSEA. active Not Available Not Available No t Available Depo-Medrol 80 mg/mL suspension for injection Take 80 mg by injection route. 12/11 completed Not Available Not Available Not Available ketorolac 10 mg tablet TAKE ONE (1) TABLET BY MOUTH EVERY 8 HOURS WITH MEALS NEEDED FOR PAIN 08/21 completed Not Available Not Available Not Available Vitamin tablet Take 1 tablet every day by oral route as directed for 30 days. 04/11 completed Not Available Not Available Not Available pramipexole 0.5 mg tablet Take 1 tablet every day by oral route at bedtime for 30 days. 08/29 completed Not Available Not Available Not Available Celebrex 200 mg capsule Take 1 capsule every day by oral route. 12/26 completed Not Available Not Available Not Available ceftriaxone 1 gram solution for injection Take 1 g by injection route. 09/29 completed Not Available Not Available Not Available lorazepam 0.5 mg tablet TAKE ONE (1) TABLET EVERY DAY BY ORAL ROUTE AT BEDTIME FOR 30 DAYS. active Not Available Not Available No t Available temazepam 15 mg capsule 11/28 completed Not Available Not Available Not Available Lipitor 40 mg tablet take 1 tablet (40 mg) by oral route once daily 08/10 completed Not Available Not Available Not Available dicyclomine 20 mg tablet TAKE ONE (1) TABLET FOUR (4) TIMES A DAY BY ORAL ROUTE NEEDED FOR FIVE (5) DAYS. 03/25 completed Not Available Not Available Not Available benzonatate 100 mg capsule TAKE ONE (1) CAPSULE THREE (3) TIMES A DAY BY ORAL ROUTE FOR 10 DAYS. 11/06 completed Not Available Not Available Not Available hydrocodone 7.5 mg-acetamin ophen 325 mg tablet 1/2 to 1 every 12-24 hours prn 12/26 completed Not Available Not Available Not Available cephalexin 500 mg capsule 12/26 completed Not Available Not Available Not Available pantoprazol e 40 mg tablet,manfred yed release Take 1 tablet every day by oral route for 30 days. 09/25 completed Not Available Not Available Not Available oseltamivir 75 mg capsule Take 1 capsule twice a day by oral route for 5 days. 05/01 completed Not Available Not Available Not Available Prozac 20 mg capsule take 1 capsule (20 mg) by oral route once daily in the morning 12/31 completed Not Available Not Available Not Available esomeprazol e magnesium 40 mg capsule,del ayed release 08/29 completed Not Available Not Available Not Available triamcinolo ne acetonide 0.1 % topical ointment 03/18 completed Not Available Not Available Not Available ranitidine 150 mg tablet Take 1 tablet twice a day by oral route before meals for 30 days. 12/06 completed Not Available Not Available Not Available buspirone 10 mg tablet TAKE ONE TABLET TWICE DAILY BY ORAL ROUTE NEEDED FOR ANXIETY 08/21 completed Not Available Not Available Not Available clotrimazol e-betametha sone 1 %-0.05 % topical cream APPLY TO THE AFFECTED AND SURROUNDI NG AREAS OF SKIN BY TOPICAL ROUTE TWO (2) TIMES PER DAY IN THE MORNING AND EVENING FOR TWO (2) WEEKS active Not Available Not Available No t Available lansoprazol e 30 mg capsule,del ayed release TAKE ONE (1) CAPSULE EVERY DAY BY ORAL ROUTE FOR 90 DAYS. active Not Available Not Available No t Available promethazin e 25 mg tablet TAKE ONE TABLET DAILY NEEDED FOR A MIGRAINE active Not Available Not Available No t Available progesteron e micronized 200 mg capsule Take 1 capsule every day by oral route at bedtime for 30 days. 03/18 completed Not Available Not Available Not Available nitroglycer in 0.[address] ONE TABLET SUBLINGUA LLY EVERY FIVE (5) MINUTES NEEDED FOR CHEST PAIN FOR THREE DOSES. active Not Available Not Available No t Available gabapentin 300 mg capsule TAKE ONE (1) CAPSULE BY MOUTH NIGHTLY. 08/21 completed Not Available Not Available Not Available diclofenac sodium 75 mg tablet,manfred yed release TAKE ONE (1) TABLET BY MOUTH TWO (2) TIMES DAILY. 08/21 completed Not Available Not Available Not Available hydrocodone 5 mg-acetamin ophen 500 mg tablet take 1 tablet by oral route every 6 hours as needed for pain 08/10 completed Not Available Not Available Not Available furosemide 20 mg tablet TAKE ONE (1) TABLET EVERY DAY BY ORAL ROUTE IN THE MORNING FOR 30 DAYS. 08/21 completed Not Available Not Available Not Available gabapentin 100 mg capsule TAKE TWO (2) TABLETS EVERY NIGHT AT BEDTIME 08/21 completed Not Available Not Available Not Available metoprolol succinate ER 25 mg tablet,exte nded release 24 hr TAKE ONE (1) TABLET EVERY DAY BY ORAL ROUTE FOR 30 DAYS. active Not Available Not Available No t Available ergocalcife rol (vitamin D2) 1,250 mcg (50,000 unit) capsule TAKE ONE (1) CAPSULE EVERY WEEK BY ORAL ROUTE DIRECTED FOR 28 DAYS. active Not Available Not Available No t Available dexamethaso ne sodium phosphate 4 mg/mL injection solution Inject 8 mg by intramusc ular route. 10/01 completed Not Available Not Available Not Available diazepam 10 mg tablet TAKE ONE (1) TAB BY MOUTH 30 MINUTES PRIOR TO INJECTION . MUST HAVE A LEAD TECHNICAL ARCHITECT 08/21 completed Not Available Not Available Not Available Cheratussin AC 10 mg-100 mg/5 mL oral liquid 08/10 completed Not Available Not Available Not Available epinephrine 0.3 mg/0.3 mL injection, auto-inject or USE DIRECTED active Not Available Not Available No t Available simethicone 166 mg capsule Take 1 capsule 3 times a day by oral route as needed for 20 days. 02/18 completed Not Available Not Available Not Available ibuprofen 600 mg tablet TK 1 T PO Q 6 H UTD 09/25 completed Not Available Not Available Not Available polyethylen e glycol 3350 17 gram/dose oral powder 08/10 completed Not Available Not Available Not Available oxycodone-a cetaminophe n 7.5 mg-325 mg tablet 12/26 completed Not Available Not Available Not Available methylpredn isolone 4 mg tablets in a dose pack TAKE DIRECTED FOR 6 DAYS 09/11 completed Not Available Not Available Not Available ketorolac 60 mg/2 mL intramuscul ar solution 60 mg IM x1 08/04 completed Not Available Not Available Not Available ketoconazol e 2 % topical cream APPLY TO THE AFFECTED AREA(S) BY TOPICAL ROUTE ONCE DAILY active Not Available Not Available No t Available cefdinir 300 mg capsule 08/10 completed Not Available Not Available Not Available dexamethaso ne sodium phosphate 10 mg/mL injection solution Take 10 mg by injection route. 08/04 completed Not Available Not Available Not Available fluticasone propionate 50 mcg/actuati on nasal spray,suspe nsion SPRAY ONE (1) SPRAY EVERY DAY BY INTRANASA L ROUTE. 12/17 completed Not Available Not Available Not Available loratadine 10 mg tablet one tab po qd 04/25 completed Not Available Not Available Not Available naproxen 500 mg tablet 11/28 completed Not Available Not Available Not Available diazepam 5 mg tablet 12/26 completed Not Available Not Available Not Available Ventolin HFA 90 mcg/actuati on aerosol inhaler 11/28 completed Not Available Not Available Not Available oxycodone 5 mg tablet TAKE ONE TABLET BY MOUTH 1-3 times EVERY DAY as needed FOR pain post surgery. 08/29 completed Not Available Not Available Not Available Benadryl 25 mg capsule Take 1 capsule every day by oral route at bedtime. 06/21 completed Not Available Not Available Not Available escitalopra m 10 mg tablet Take 1 tablet twice a day by oral route for 30 days. 06/04 completed Not Available Not Available Not Available Sprintec (28) 0.25 mg-0.035 mg tablet Take 1 tablet every day by oral route. 04/21 completed Not Available Not Available Not Available cyclobenzap rine 5 mg tablet TAKE ONE (1) TABLET THREE (3) TIMES A DAY BY ORAL ROUTE. active Not Available Not Available No t Available iron 325 mg (65 mg iron) tablet Take 1 tablet twice a day by oral route. 11/28 completed Not Available Not Available Not Available escitalopra m 5 mg tablet Take 1 tablet every day by oral route for 30 days. 01/16 completed Not Available Not Available Not Available nitrofurant oin monohydrate /macrocryst als 100 mg capsule Take 1 capsule every 12 hours by oral route for 7 days. 01/16 completed Not Available Not Available Not Available duloxetine 20 mg capsule,del ayed release Take 1 capsule twice a day by oral route for 30 days. 12/17 completed Not Available Not Available Not Available pregabalin 75 mg capsule TAKE ONE (1) CAPSULE TWICE A DAY BY ORAL ROUTE FOR 30 DAYS. 08/21 completed Not Available Not Available Not Available Vandazole 0.75 % (37.5 mg/5 gram) vaginal gel INSERT ONE (1) APPLICATO RFUL EVERY DAY BY VAGINAL ROUTE AT BEDTIME FOR FIVE (5) DAYS. 11/06 completed Not Available Not Available Not Available chlorhexidi ne gluconate 0.12 % mouthwash SWISH WITH 15 ML FOR 30 SECONDS Q 12 H 01/05 completed Not Available Not Available Not Available dexamethaso ne sodium phosphate (PF) 10 mg/mL injection solution Take 10 mg by injection route. 01/22 completed Not Available Not Available Not Available Mucinex 1,200 mg tablet, extended release TAKE ONE (1) TABLET EVERY 12 HOURS BY ORAL ROUTE NEEDED. 11/06 completed Not Available Not Available Not Available diclofenac 1 % topical gel APPLY TWO (2) GRAMS TO THE AFFECTED AREA(S) BY TOPICAL ROUTE FOUR (4) TIMES PER DAY active Not Available Not Available No t Available Feraheme 510 mg/17 mL (30 mg/mL) intravenous solution infuse 510mg intraveno usly in 2 doses infused 3-7 days apart 06/20 completed Not Available Not Available Not Available Dexilant 60 mg capsule, delayed release 02/18 completed Not Available Not Available Not Available butalbital- acetaminoph en-caffeine 50 mg-300 mg-40 mg capsule TAKE ONE (1) CAPSULE EVERY FOUR (4) HOURS BY ORAL ROUTE NEEDED FOR TWO (2) DAYS. 01/05 completed Not Available Not Available Not Available Vol-Tab Rx 29 mg iron-1 mg tablet 04/18 completed Not Available Not Available Not Available Plus (calcium carbonate) 27 mg iron-1 mg tablet Take 1 tablet every day by oral route as directed for 90 days. 11/06 completed Not Available Not Available Not Available Reyna 250 mg/mL intramuscul ar oil Inject 1 mL every week by intramusc ular route. 06/21 completed Not Available Not Available Not Available 28 mg iron-800 mcg tablet Take 1 tablet by oral route. 12/06 completed Not Available Not Available Not Available potass.chlo r 10 mEq-lidocai ne 10 mg/100 mL in 0.9 % sodCh IV piggyback active Not Available Not Available No t Available Diclegis 10 mg-10 mg tablet,manfred yed release Take 2 tablets every day by oral route at bedtime for 30 days. 04/18 completed Not Available Not Available Not Available PNV 29-1 29 mg iron-1 mg tablet TAKE ONE (1) TABLET EVERY DAY BY ORAL ROUTE DIRECTED FOR 90 DAYS. 08/22 completed Not Available Not Available Not Available Sharobel 0.35 mg tablet Take 1 tablet every day by oral route. 12/26 completed Not Available Not Available Not Available Reyna 250 mg/mL (1 mL) intramuscul ar oil Inject 250 mg every week by intramusc ular route as directed. 06/21 completed Not Available Not Available Not Available diclofenac 1 % and meth salicylate 30 %-menthol 10 % topical gel,cream active Not Available Not Available No t Available Robitussin Cough-Chest Congestion DM 5 mg-50 mg/5 mL oral liquid Take 5 mL every 6 hours by oral route as needed. 09/25 completed Not Available Not Available Not Available [facility] ODT 75 mg disintegrat ing tablet 05/01 completed Not Available Not Available Not Available Vitals Date Recorded Body height Provider Name an d Address Organization Details Last Updated DateTime 07/16/2024 167.64 cm Toya WORLEY - [facility] & [place] 07/16/2024 14:08:13 Date Recorded Body height Body mass index (BMI) Body weight Oxygen saturation Oxygen saturation in Arterial blood by Pulse oximetry Heart rate Systolic blood pressure Diastolic blood pressure Provider Name and Address Organization Details Last Updated DateTime 4 167.64 cm 44.5 kg/m2 831058. 49 g 97 % 97 % 85 /min 112 mm[Hg] 84 mm[Hg] Tiffany kumar [place] - [facility] & [place] 4 09:37:21 Date Recorded Body height Body mass index (BMI) Body weight Oxygen saturation Oxygen saturation in Arterial blood by Pulse oximetry Heart rate Systolic blood pressure Diastolic blood pressure Provider Name and Address Organization Details Last Updated DateTime 4 167.64 cm 46.3 kg/m2 088473. 01 g 99 % 99 % 92 /min 110 mm[Hg] 84 mm[Hg] [facility] [place] 4 08:42:15 Date Recorded Body height Body mass index (BMI) Body weight Oxygen saturation Oxygen saturation in Arterial blood by Pulse oximetry Heart rate Systolic blood pressure Diastolic blood pressure Provider Name and Address Organization Details Last Updated DateTime 4 167.64 cm 46 kg/m2 921689. 83 g 98 % 98 % 80 /min 110 mm[Hg] 80 mm[Hg] Ellyn WORLEY [facility] & [place] 4 09:04:04 Date Recorded Body height Body mass index (BMI) Body weight Oxygen saturation Oxygen saturation in Arterial blood by Pulse oximetry Heart rate Systolic blood pressure Diastolic blood pressure Systolic blood pressure Diastolic blood pressure Systolic blood pressure Diastolic blood pressure Systolic blood pressure Diastolic blood pressure Systolic blood pressure Diastolic blood pressure Provider Name and Address Organization Details Last Updated DateTime 4 167.64 cm 46.2 kg/m2 686163. 85 g 96 % 96 % 82 /min 108 mm[Hg] 70 mm[Hg] 104 mm[Hg] 82 mm[Hg] 108 mm[Hg] 80 mm[Hg] 96 mm[Hg] 70 mm[Hg] 106 mm[Hg] 74 mm[Hg] Ellyn WORLEY [facility] & [place] 4 15:30:15 Social History Question Answer Notes LastModified by [employer] Details LastModified Time Tobacco Smoking Status Never Smoker Ellyn damon BRUNILDA [facility] & [place] 08/22/2023 09:01:57 What Was The Date Of Your Most Recent Tobacco Screening? 08/22/2015 Information not available 07/16/2024 Are You Passively Exposed To Smoke? No Information not available 07/16/2024 How Much Tobacco Do You Smoke? No Information not available 07/16/2024 How Many Years Have You Smoked Tobacco? 0 Information not available 07/16/2024 Sex: Female Functional Status Question Answer Note LastModified by [employer] Details LastModified Time Do you use any illicit or recreational drugs? No Information not available 07/16/2024 What is your level of alcohol consumption? None Information not available 07/16/2024 Do you or have you ever used smokeless tobacco? Never used smokeless tobacco Information not available 07/16/2024 What is your exercise level? Occasional Information not available 07/16/2024 Mental Status None recorded. Family History Relationship Description Onset Age of this Age Resolved Age Notes LastModified by Organization Details LastModified Time Mother Anemia pt. added direct ly (08/21) API-13 Not available 08/22/2023 08:18:08 Mother Disorder of endocrine system pt. added direct ly (08/21) API-13 Not available 08/22/2023 08:18:08 Mother Gastroesopha geal reflux disease pt. added direct ly (08/21) API-13 Not available 08/22/2023 08:18:08 Mother Heart disease pt. added direct ly (08/21) API-13 Not available 08/22/2023 08:18:08 Mother Hypertensive disorder pt. added direct ly (08/21) API-13 Not available 08/22/2023 08:18:08 Mother Kidney disease pt. added direct ly (08/21) API-13 Not available 08/22/2023 08:18:08 Mother Multiple sclerosis pt. added direct ly (08/21) API-13 Not available 08/22/2023 08:18:08 Father Heart disease pt. added direct ly (08/21) API-13 Not available 08/22/2023 08:18:29 Father Hypercholest erolemia pt. added direct ly (08/21) API-13 Not available 08/22/2023 08:18:29 Father Hypertensive disorder pt. added direct ly (08/21) API-13 Not available 08/22/2023 08:18:29 Father Cerebrovascu lar accident pt. added direct ly (08/21) API-13 Not available 08/22/2023 08:18:29 Son Allergy pt. added direct ly (08/21) API-13 Not available 08/22/2023 08:18:46 Maternal Grandmother Allergy pt. added direct ly (08/21) API-13 Not available 08/22/2023 08:19:17 Maternal Grandmother Anemia pt. added direct ly (08/21) API-13 Not available 08/22/2023 08:19:17 Maternal Grandmother Autoimmune disease pt. added direct ly (08/21) API-13 Not available 08/22/2023 08:19:17 Maternal Grandmother Disorder of endocrine system pt. added direct ly (08/21) API-13 Not available 08/22/2023 08:19:17 Maternal Grandmother Gastroesopha geal reflux disease pt. added direct ly (08/21) API-13 Not available 08/22/2023 08:19:17 Maternal Grandmother Headache pt. added direct ly (08/21) API-13 Not available 08/22/2023 08:19:17 Maternal Grandmother Myocardial infarction pt. added direct ly (08/21) API-13 Not available 08/22/2023 08:19:17 Maternal Grandmother Heart disease pt. added direct ly (08/21) API-13 Not available 08/22/2023 08:19:17 Maternal Grandmother Hypercholest erolemia pt. added direct ly (08/21) API-13 Not available 08/22/2023 08:19:17 Maternal Grandmother Hypertensive disorder pt. added direct ly (08/21) API-13 Not available 08/22/2023 08:19:17 Maternal Grandmother Kidney disease pt. added direct ly (08/21) API-13 Not available 08/22/2023 08:19:17 Medical History Condition Response Swelling Y Weight loss or gain Y Chest Pain Y Shortness of Breath Y Dizziness or Fainting Y Arrhythmia Y Low Blood Pressure Y Gynecological HistoryNo gynecological history recorded. Obstetrics History GPAL:G 0 P 0 0 0 0 Immunizations Vaccine Type Date Status Note Provider Nam e and Address Organization Details Recorded Time Influenza, split virus, quadrivalent, preservative 9 completed Ellyn damon [place] - [facility] - [place] & [place] 08/22/2023 08:59:20 Influenza, split virus, quadrivalent, preservative 7 completed BRUNILDA Snider - [facility] - [place] & [place] 08/22/2023 08:59:20 COVID-19 vaccine, vector-nr, rS-Ad26, PF, 0.5 mL 2 completed Ellyn Woods null, [place] - [facility] - [place] & [place] 08/22/2023 08:59:20 COVID-19, mRNA, LNP-S, bivalent, PF, 30 mcg/0.3 mL dose 3 completed Ellyn Knkayleen null, [place] - [facility] - [place] & [place] 08/22/2023 08:59:20 influenza, unspecified formulation 6 completed Ellyn Ferdinandarr null, [place] - [facility] - [place] & [place] 08/22/2023 08:59:20 Tdap 8 completed Ellyn Woods null, [place] - [facility] - [place] & [place] 08/22/2023 08:59:20 Past Encounters Encounter ID Performer Location Encounter Start Date Encounter Closed Date Diagnosis/Indication Diagnosis SNOMED-CT Code Diagnosis ICD10 Code Diagnosis Note [id number] Torres Lima MD [address] [place] [address] [place] [address] [id number] 6 08/22/2023 08:06:22 08/22/2023 09:26:29 Chest pain 06111101 R07.9 Dyspnea on exertion 6084 5006 R06.09 Tachycardia 8617198 R00. 0 Obesity 602499884 E66.9 Edema 245651430 R60.9 Anxiety 11764544 F41.9 Palpitations 70903356 R0 0.2 [id number] Torres Lima MD [address] [place] [address] [place] [address] [id number] 6 09/05/2023 09:27:24 09/05/2023 09:55:57 Chest pain 27295764 R07.9 Palpitations 23571813 R0 0.2 Dyspnea on exertion 6084 5006 R06.09 Tachycardia 1309178 R00. 0 Obesity 901190276 E66.9 Edema 788841594 R60.9 Anxiety 37122738 F41.9 [id number] CYNTHIA TEAGUE NP, S [address] [place] [address] [place] [address] [id number] 6 09/12/2023 08:35:52 09/12/2023 09:21:29 Chest pain 68279256 R07.9 Palpitations 35122764 R0 0.2 Dyspnea on exertion 6084 5006 R06.09 Tachycardia 2659889 R00. 0 Obesity 848946552 E66.9 Edema 101994236 R60.9 Anxiety 11633077 F41.9 [id number] CYNTHIA TEAGUE NP, S KEND[place] [address] [place] [address] [place], [place] [phone] 6 09/16/2023 08:48:55 09/16/2023 10:12:35 Chest pain 16524279 R07.9 Palpitations 59061827 R0 0.2 Dyspnea on exertion 6084 5006 R06.09 Tachycardia 2638649 R00. 0 Obesity 864816837 E66.9 Edema 881903962 R60.9 Anxiety 25998512 F41.9 Progressive angina 25981 6006 I20.0 [id number] CYNTHIA TEAGUE NP, S KENDALL [address] [place] [address] [place], [place] [phone] 6 09/30/2023 14:09:58 09/30/2023 15:30:23 Dizziness 418195550 R42 Chest pain 18611921 R07. 9 Palpitations 55226357 R0 0.2 Dyspnea on exertion 6084 5006 R06.09 Tachycardia 4449393 R00. 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 1205442147 4570896 G56.23 Health Concerns Section Related Observation LastModified by Organization Detai ls LastModified Time None Recorded Concern Status LastModified by Organization Details LastModified Time None Recorded Advance Directives Directive None Recorded Payers Insurance Date Sequence Insurance Name Policy Number Policy Jauregui Covered Member ID Jauregui Member ID Guarantor Name 07/16/2024 1 [employer] [facility] (HMO) Sarita Contreras [id number] Sarita Diane 08/22/2023 1 [place] [id number] Sarita Toombs [id number] Sarita Diane 07/16/2024 1 [place] [id number] Sarita Toombs [id number] Sarita Toombs 08/22/2023 1 [place] [id number] Sarita K Toombs [id number] Sarita Toombs 08/22/2023 1 [place] [id number] Sarita Toombs [id number] Sarita Toombs 09/30/2023 2 [employer] ([facility] Sarita Toombs [id number] Sarita Toombs Notes Date Note Type Note Provider Name and Address Organization Details Recorded Time 09/05/2023 text/html still with chest pain. Pressure in the chest. Dull. Substernal. Here today to go over monitor results. Torres Lima MD [address] [place] [address],[address], [place], [address], [facility] 09/05/2023 11:00:16 09/12/2023 text/html Sarita is a 38-year-old female who presents today in follow-up. The patient has a history significant for tachycardia, prediabetes, and obesity. Since our last visit, the patient reports that her chest pain has worsened. The patient has substernal, intermittent, chest heaviness and pressure with associated shortness of breath and radiation of left arm. The patient's most recent episode was on Saturday. The patient reports that they are improved with nitroglycerin. CYNTHIA TEAGUE NP, S [address] [place] [address],[address], [place], [address], [facility] 09/12/2023 13:17:09 09/16/2023 text/html Sarita is a 38-year-old female who presents today in follow-up. The patient has a history significant for tachycardia, prediabetes, and obesity. Since our last visit, the patient reports that her substernal, intermittent, chest heaviness and pressure has worsened. This is worsened in frequency, duration, and severity. Associated shortness of breath. Intermittent tachycardia like palpitations. The patient also reports intermittent dizziness. The patient has intermittent, primarily dependent lower extremity swelling at times. The patient had several episodes of chest pain this weekend at rest. CYNTHIA TEAGUE NP, S [address] [place] [address],[address], [place], [address], [facility] & [place] 09/16/2023 10:19:12 09/30/2023 text/html Sarita is a 38-year-old female who presents today in follow-up. The patient has a history significant for tachycardia, prediabetes, and obesity. Since our last visit, the patient underwent a left heart catheterization that revealed normal coronary arteries. The patient reports that she continues to have intermittent chest pains, and near syncopal episodes with significant dizziness. No aggravating or alleviating factors noted for dizziness. Dizziness is quite severe at times intermittently. These occur both at rest and with exertion. The patient has no other complaints or concerns. Groin nontender, healing well. The patient also had a CTA chest which revealed no pulmonary embolus. The patient will need a repeat CT of the chest in four months to confirm stability of lymph nodes and nodules. CYNTHIA TEAGUE NP, S [address] [place] [address],[address], [place], [address], [facility] - [facility] & [place] 09/30/2023 17:06:09 07/16/2024 text/html DOO-2 years ago06/23/2024- Mode upper EMG- Moderate mode carpal tunnelMild bilateral cubital tunnel-Proof06/11/2024- XR left shoulder- minor AC joint OA-PPRt is worse then left. Having pain and numbness of the left hand with some swelling of the hand-E3SF Gerson Guevara MD [address] [place] [address],[address], [place], [address], [facility] - [facility] & [place] 07/20/2024 06:41:20 OBGyn Episode No OBEpisode recorded.
--- OUTSIDE RECORDS SUMMARY | 2024-10-04 19:43 | XMS_ITS | Clinical Summary ---
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 Name Role Phone Unavailable Primary Care Provider Unavailabl e Social History Tobacco Use Types Packs/Day Years Used Date Smoking Tobacco: Never Assessed Comments Unknown Sex and Gender Information Value Date Recorded Sex Assigned at Not on file Legal Sex Female 8:43 PM EDT Gender Identity Not on file Sexual Orientation Not on file Plan of Treatment Health Maintenance Due Date Last Done Comments Dental Oral Exam 1984 Dental Prophylaxis 1984 Dental X-Ray: Bitewings 1984 Dental X-Ray: Full Mouth 1984 [facility]-Depression Screening 1984 [facility]-Infant/Child/Adol SDOH Screenings 1984 [facility]-Varicella Vaccines (1 of 2 - 13+ 2-dose series) 1997 HPV Vaccines (1 - 3-dose series) 1999 [facility]- SDOH Screenings 2002 [facility]-Adult SDOH Screenings 2002 [facility]-DTaP,Tdap,and Td Vaccine s (1 - Tdap) 2003 [facility]-Hepatitis B Vaccines (1 of 3 - 19+ 3-dose series) 2003 [facility]-Pap Smear 2005 [facility]-Cervical Cancer Screening 2014 [facility]-HPV/Cotest 2014 [facility]-TPACO-17 Vaccine (1 - 20 24-25 season) 2023 [facility]-Influenza Vaccine (Seaso n Ended) 2024 [facility]-Zoster Vaccines (1 of 2) 2034 [facility]-HIB Vaccines Aged Out No longer e ligible based on patient's age to complete this topic [facility]-Hepatitis A Vaccines Aged Out No longer eligible based on patient's age to complete this topic [facility]-IPV Vaccines Aged Out No longer e ligible based on patient's age to complete this topic [facility]-Pneumococcal Vaccine: Pediatrics (0 to 5 Years) and At-Risk Patients (6 to 49 Years) Aged Out No long er eligible based on patient's age to complete this topic [facility]-Rotavirus Vaccines Aged Out No lo nger eligible based on patient's age to complete this topic
--- OUTSIDE RECORDS SUMMARY | 2024-10-04 19:43 | XMS_ITS | Data Portability ---
Author Organization [facility]ly [facility] Address [address] [facility] [address] [place] [address] Care Team Providers Care Administrative Officer Name Role Phone ESAU TRIPATHI Primary Care Provider [phone] ESAU TRIPATHI Referring Provider [phone] Assessment Encounter Date Assessment Date Assessment LastModified by Organization Details LastModified Time 10/01/2022 10/01/2022 Care management services and General Behavioral Health Integration (CPT 13898) was provided for at least 20 minutes of clinical time, directed by a physician or other qualified healthcare provider in accordance with state regulation. Services included systematic assessment and monitoring, using applicable validated clinical rating scales, facilitation and coordination of behavioral health treatment, and continuous relationship with the care team. Patient has been provided a HIPAA-compliant software platform which the care team can access to monitor and care for the patient. This platform provides mindfulness activities, patient education materials pertaining to the patient s psychosocial status and diagnosis, along with crisis resource information. Validated clinical rating scales will be repeated monthly to reassess presence or absence of daily dysfunction and emotional stress that may be related to physical health conditions, social or environmental factors. These assessments will guide us to provide a better pain management treatment. Care plans will continue to be updated monthly in accordance to changes in behavioral and physical health status. Medications will be closely monitored and adjusted according to validated rating scales and subjective data provided by patient (mood and sleep). Complete subjective and objective patient data is available in the patient records. Patient completed PHQ-9 on 10/01/2022 with scoring of 5 , indicating mild depression. No suicidal ideation was endorsed. Patient answered no to all questions related to self-harm. Through the WITOI platform, the patient was assigned the Reoccurring Assessment activity template, which includes informational videos, journals, and BHARTI-2 / BHARTI-7, PHQ-9*, PDUQp, Oswestry - Lower Back, ORT-OUD. . Patient was not contacted by our clinical support team but provided resources through the WITOI platform. The patient s next visit is on 10/17/2022 . [email or web address] Not available 10/15/2022 15:47:29 10/26/2022 10/26/2022 Care management services and General Behavioral Health Integration (CPT 87265) was provided for at least 20 minutes of clinical time, directed by a physician or other qualified healthcare provider in accordance with state regulation. Services included systematic assessment and monitoring, using applicable validated clinical rating scales, facilitation and coordination of behavioral health treatment, and continuous relationship with the care team. Patient has been provided a HIPAA-compliant software platform which the care team can access to monitor and care for the patient. This platform provides mindfulness activities, patient education materials pertaining to the patient s psychosocial status and diagnosis, along with crisis resource information. Validated clinical rating scales will be repeated monthly to reassess presence or absence of daily dysfunction and emotional stress that may be related to physical health conditions, social or environmental factors. These assessments will guide us to provide a better pain management treatment. Care plans will continue to be updated monthly in accordance to changes in behavioral and physical health status. Medications will be closely monitored and adjusted according to validated rating scales and subjective data provided by patient (mood and sleep). Complete subjective and objective patient data is available in the patient records. Patient completed BHARTI-7 with scoring below threshold for clinically necessary intervention (score less than 6). Patient completed PHQ-9 on 10/26/2022 with scoring of 5 , indicating mild depression. No suicidal ideation was endorsed. Patient answered no to all questions related to self-harm. Through the WITOI platform, the patient was assigned the Reoccurring Assessment activity template, which includes informational videos, journals, and BHARTI-2 / BHARTI-7, PHQ-9*, PDUQp, Oswestry - Lower Back, ORT-OUD. . Patient was not contacted by our clinical support team but provided resources through the WITOI platform. The patient s next visit is on 11/29/2022 . [email or web address] Not available 11/01/2022 16:07:41 11/27/2022 11/27/2022 INTERVAL HX: Esau is a 37-year-old female who returns the office today for evaluation of her chronic lower back. Since last visit we did perform bilateral L3-L5 RFA on 10/17/2022. She reports approximately 75% relief with this. This was to target her normal chronic pain complaints. Last visit she previously discussed a work injury falling out of a chair and her undergoing some physical therapy. It is now brought to my attention that she has undergone an LESI for any acute work injury. I expressed to Esau that she must make a decision on 1 pain management as she cannot continue to see 2 physicians at once for her back pain. She continues to undergo therapy ordered by their practice for her back and they are planning another epidural. At this point we will give her a 30-day prescription on the hydrocodone and she is going to transfer her care over to [facility] as they are taking care of her Worker's Comp. case. She has a follow-up appoint with him tomorrow. Expressed to her that she needs to reach out and have them take over her opiates. She stated understanding of this. Brief Pain History: Prior patient at [facility] 36-year-old female new patient referral for chronic low back and bilateral hip pain. She reports pain all my life but most severe since 2009. Has been slowly progressive over the years affecting her ability to perform ADLs. She was seen at [facility] treated with a combination medications and injections. She reports RFA has been most effective. That office no longer able to provide her treatment so she has been referred on to our office. She does not remember last time she had imaging of her lumbar spine. I do not have imaging available. She reports prior failure to gabapentin, Lyrica. She reports allergic to Tylenol 3. 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 Pertinent Imaging: MRI lumbar spine 08/28/2022. L1-L2 mild degenerative disc bulge. L2-3 disc bulge. Mild facet degeneration. L3-4 generalized disc bulge with foraminal spurring. Mild facet arthritis. Moderate right and mild left foraminal narrowing. L4-5 disc bulge and facet degeneration. Mild right foraminal narrowing. X-ray lumbar spine 3 view 01/17/2022 There are 5 lumbar vertebral bodies with straightening of the lower the lumbar lordosis. There is minor retrolisthesis of L3 on L4 not significantly changed from prior studies. The vertebral body heights are within normal limits. There are mild endplate osteophytes from L2-L3 through L4-L5. There is an IUD in place Impression: Straightening of lumbar lordosis with minor retrolisthesis of L3 on L4, not significantly changed Stable mild degenerative disc disease from L2-L3 through L4-L5 OTHER TREATMENTS: Conservative: 6 weeks physical therapy [place] without relief. No help from home exercise therapy. 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 Anticoagulated: Denies Injection Hx She reports improvement with prior lumbar RFA 10/17/2022 bilateral L3-L5 RFA 75% relief 06/04/2022 confirmatory bilateral L3-L5 80% x 2 days 05/14/22:DIAGNOSTIC BILATERAL LMBB L3-5, #1- 100% several hours Medication Hx: Hydrocodone 10/325 mg 1 4 times a day. Reports prior failure to gabapentin. Cannot take NSAIDs secondary to gastric bypass per patient. Compliance: UDS performed today. I will send out for results. Most recent UDS confirmation from 10/01/2022 was appropriate ARABELLA/OARS/INSPE CT was reviewed and is appropriate. We did discuss her filling the gabapentin from [facility] provider. Also she was given Ativan for the lumbar MRI as she has extreme claustrophobia. Based on above screening, co-morbidities, MED, and my clinical judgement: I consider this patient to be moderate risk for abuse/diversion. ORT: 1 PHQ-9: 0 BEBETO: 21 MDM: At this point I expressed to Esau that she cannot continue to see to pain physicians for the same area of pain. She already underwent an LESI with our office and they are planning a second. She is also undergoing therapy and they are riding her off work currently. She would like to transfer her care over to [facility] or they are covering her Worker's Comp. case. I will issue 130-day prescription today and she can have them take over her opiates. She agreed with the plan. PLAN: 1. Last 30-day prescription of hydrocodone issued. Patient is going to reach out and have [facility] fully take over her care. Cannot see two pain physicians for the same area pain. 2. No further appointments made. Discussed new orders/changes with patient. Patient expressed agreement and full understanding of above plan. All questions answered in full. No follow up needed. Patient transferred care to [facility]. [email or web address] Not available 11/27/2022 10:47:26 11/30/2022 11/30/2022 Care management services and General Behavioral Health Integration (CPT 13418) was provided for at least 20 minutes of clinical time, directed by a physician or other qualified healthcare provider in accordance with state regulation. Services included systematic assessment and monitoring, using applicable validated clinical rating scales, facilitation and coordination of behavioral health treatment, and continuous relationship with the care team. Patient has been provided a HIPAA-compliant software platform which the care team can access to monitor and care for the patient. This platform provides mindfulness activities, patient education materials pertaining to the patient s psychosocial status and diagnosis, along with crisis resource information. Validated clinical rating scales will be repeated monthly to reassess presence or absence of daily dysfunction and emotional stress that may be related to physical health conditions, social or environmental factors. These assessments will guide us to provide a better pain management treatment. Care plans will continue to be updated monthly in accordance to changes in behavioral and physical health status. Medications will be closely monitored and adjusted according to validated rating scales and subjective data provided by patient (mood and sleep). Complete subjective and objective patient data is available in the patient records. Patient completed PHQ-9 on 11/30/2022 with scoring of 6 , indicating mild depression. No suicidal ideation was endorsed. Patient answered no to all questions related to self-harm. Through the WITOI platform, the patient was assigned the Reoccurring Assessment activity template, which includes informational videos, journals, and BHARTI-2 / BHARTI-7, PHQ-9*, PDUQp, Oswestry - Lower Back, ORT-OUD. . Patient was not contacted by our clinical support team but provided resources through the WITOI platform. [email or web address] Not available 12/03/2022 15:43:13 Plan of Treatment Reminders Order Date Submit Date Provider Last Modified By Organization Details Last Modified Time Details Appointments None recorded. Lab drug screen, urine 2022 023 [facility], [facility], [address] [place] [address], [address], 15:42:42 Referral None recorded. Procedures None recorded. Surgeries None recorded. Imaging None recorded. Medication Orders hydrocodone 10 mg-acetamin ophen 325 mg tablet [address], [place], [address], 3 09:22:43 Patient TargetsNo targets recorded. Patient InstructionsNo instructions recorded. Reason for Referral None Reported. Results Created Date Observation Date Name Description Value Unit Range Abnormal Flag Note LastModifiedBy Organization Detail LastModifiedTime 11/28/1908/28/2022 MRI, lumba r spine , w/o contr ast No observ ation record ed. BARCODE Not Available 2022 17:55:53 Result Notes None recorded. Problems Name Problem SNOMED Code Status Onset Date Resolution Date Notes Provider Name and Address Organization Details Recorded Time Lumbar spondylosi s 100164064 Active 2021 Varghese Borja MD [address] [place] [address], [phone] , [facility] 2 13:28:16 Degenerati on of lumbar interverte bral disc 71035874 Active 2021 Varghese Borja MD [address] [place] [address], [phone] , [facility] 2 13:29:03 Pain disorder with psychologi kiera factor 480846842756 Active 2022 Kelechi Snowden [facility] 3 15:46:59 Problem Notes None recorded. Procedures Surgical History Date Name Laterality Status Provider Name and Address Organization Details Recorded Time 10/18/19 Lumbar RFA (2 Level Bilateral) completed Varghese Borja MD [address] [place] [address], [phone], [facility] 10/17/2022 10:23:14 06/04/19 23 Diagnostic Lumbar MBB (2 Level Bilateral) completed Varghese Borja MD [address] [place] [address], [phone], [facility] 06/04/2022 15:32:36 05/14/19 23 Diagnostic Lumbar MBB (2 Level Bilateral) completed Varghese Borja MD [address] [place] [address], [phone], BRUNILDA [facility] 05/14/2022 15:56:53 bypass of stomach completed Verenice WORLEY [facility] 11/23/2021 13:21:18 Foot/Ankle Surgery completed Verenice WORLEY [facility] 11/23/2021 13:21:30 Cholecystectomy completed Verenice WORLEY [facility] 11/23/2021 13:21:34 Knee Surgery completed Verenice WORLEY [facility] 11/23/2021 13:21:38 tonsilectomy/adeno ids completed Verenice WORLEY [facility] 11/23/2021 13:21:42 Imaging Results None recorded. Procedure Notes None recorded. Medical Equipment None Reported. Allergies Allergen ID Allergen Name Allergen Category Reaction Reaction Severity Criticality Documentation Date Start Date Code Code System Note Provider Name and Address Organization Details Recorded Time 597656 Substance with sulfonami de structure and antibacte rial mechanism of action (substanc e) medicatio n Not available Not available Not available 11/23/2021 12526 8003 SNOMED BRUNILDA Alonso [facility] 2 13:18:21 526747 Keflex medicatio n Not available Not available Not available 11/23/2021 82950 7 RxNorm BRUNILDA Alonso [facility] 2 13:18:27 893155 Augmentin medicatio n Not available Not available Not available 11/23/2021 89244 2 RxNorm BRUNILDA Alonso [facility] 2 13:18:30 Medications Name Sig Start Date Stop Date Status Note LastModified by Organization Details LastModified Time metformin 500 mg tablet TAKE (1/2) TABLET BY MOUTH EVERY DAY active Not Available Not Available No t Available nabumetone 750 mg tablet TAKE ONE (1) TABLET BY MOUTH TWO (2) TIMES DAILY. active Not Available Not Available No t Available tizanidine 4 mg tablet TAKE ONE (1) TABLET BY MOUTH NIGHTLY NEEDED. active Not Available Not Available No t Available prednisone 20 mg tablet TAKE ONE (1) TABLET EVERY DAY BY ORAL ROUTE FOR FIVE (5) DAYS. 11/23 completed Not Available Not Available Not Available phentermine 37.5 mg tablet TAKE ONE (1) TABLET EVERY DAY BY ORAL ROUTE FOR 30 DAYS. 11/23 completed Not Available Not Available Not Available hydrocodone 10 mg-acetamin ophen 325 mg tablet TAKE ONE (1) TABLET FOUR (4) TIMES A DAY BY ORAL ROUTE FOR 30 DAYS. active Not Available Not Available No t Available tramadol 50 mg tablet active Not Available Not Available No t Available ketorolac 10 mg tablet TAKE ONE (1) TABLET BY MOUTH EVERY 8 HOURS NEEDED FOR PAIN active Not Available Not Available No t Available lorazepam 0.5 mg tablet TAKE ONE (1) TO TWO (2) TABLETS PRIOR TO PROCEDURE 11/27 completed Not Available Not Available Not Available dicyclomine 20 mg tablet TAKE ONE (1) TABLET FOUR (4) TIMES A DAY BY ORAL ROUTE NEEDED FOR FIVE (5) DAYS. active Not Available Not Available No t Available benzonatate 100 mg capsule TAKE ONE (1) CAPSULE THREE (3) TIMES A DAY BY ORAL ROUTE FOR 10 DAYS. 11/23 completed Not Available Not Available Not Available pantoprazol e 40 mg tablet,manfred yed release TAKE ONE (1) TABLET EVERY DAY BY ORAL ROUTE BEFORE A MEAL 11/23 completed Not Available Not Available Not Available oseltamivir 75 mg capsule active Not Available Not Available Not Available lansoprazol e 30 mg capsule,del ayed release TAKE ONE (1) CAPSULE EVERY DAY BY ORAL ROUTE FOR 90 DAYS. active Not Available Not Available No t Available promethazin e 25 mg tablet active Not Available Not Available Not Available gabapentin 300 mg capsule TAKE ONE (1) CAPSULE BY MOUTH NIGHTLY. 11/27 completed Not Available Not Available Not Available diclofenac sodium 75 mg tablet,manfred yed release TAKE ONE (1) TABLET BY MOUTH TWO (2) TIMES DAILY. active Not Available Not Available No t Available gabapentin 100 mg capsule TAKE TWO (2) TABLETS EVERY NIGHT AT BEDTIME active Not Available Not Available No t Available ergocalcife rol (vitamin D2) 1,250 mcg (50,000 unit) capsule TAKE ONE (1) CAPSULE EVERY WEEK BY ORAL ROUTE DIRECTED FOR 28 DAYS. active Not Available Not Available No t Available diazepam 10 mg tablet TAKE ONE (1) TAB BY MOUTH 30 MINUTES PRIOR TO INJECTION . MUST HAVE A FUEL CELL ASSEMBLER 11/27 completed Not Available Not Available Not Available methylpredn isolone 4 mg tablets in a dose pack TAKE DIRECTED FOR 6 DAYS active Not Available Not Available No t Available ketoconazol e 2 % topical cream APPLY TO THE AFFECTED AREA(S) BY TOPICAL ROUTE ONCE DAILY active Not Available Not Available No t Available fluticasone propionate 50 mcg/actuati on nasal spray,suspe nsion SPRAY ONE (1) SPRAY EVERY DAY BY INTRANASA L ROUTE. active Not Available Not Available No t Available cyclobenzap rine 5 mg tablet TAKE ONE (1) TABLET THREE (3) TIMES A DAY BY ORAL ROUTE. active Not Available Not Available No t Available duloxetine 20 mg capsule,del ayed release TAKE ONE (1) CAPSULE TWICE A DAY BY ORAL ROUTE FOR 30 DAYS. 11/23 completed Not Available Not Available Not Available Vandazole 0.75 % (37.5 mg/5 gram) vaginal gel INSERT ONE (1) APPLICATO RFUL EVERY DAY BY VAGINAL ROUTE AT BEDTIME FOR FIVE (5) DAYS. 11/23 completed Not Available Not Available Not Available Mucinex 1,200 mg tablet, extended release TAKE ONE (1) TABLET EVERY 12 HOURS BY ORAL ROUTE NEEDED. 11/23 completed Not Available Not Available Not Available diclofenac 1 % topical gel APPLY TWO (2) GRAMS TO THE AFFECTED AREA(S) BY TOPICAL ROUTE FOUR (4) TIMES PER DAY active Not Available Not Available No t Available Nurte ODT 75 mg disintegrat ing tablet TAKE 1 TABLET BY MOUTH EVERY DAY NEEDED 11/23 completed Not Available Not Available Not Available Vitals Date Recorded Body height Body mass index (BMI) Body weight Provider Name and Address Organization Details Last Updated DateTime 10/01/2022 167.64 cm 39.5 kg/m2 372692.13 g Silke Jurado [facility] 10/01/2022 15:37:58 Date Recorded Body height Systolic blood pressure Diastolic blood pressure Provider Name and Address Organization Details Last Updated DateTime 11/27/2022 167.64 cm 120 mm[Hg] 82 mm[Hg] Katya Cohen [facility] 11/27/2022 08:50:50 Social History Question Answer Notes LastModified by Organizat ion Details LastModified Time Tobacco Smoking Status Never Smoker Verenice Stocktoner [facility] 11/23/2021 13:21:04 Do You Have An Advance Directive? No [email or web address] Information n ot available 11/23/2021 In The 14 Days Before Symptom Onset, Have You Had Close Contact With A Laboratory-confirm ed COVID-19 While That Case Was Ill? No [email or web address] Information n ot available 11/23/2021 In The 14 Days Before Symptom Onset, Have You Had Close Contact With A Person Who Is Under Investigation For COVID-19 While That Person Was Ill? No [email or web address] Information not available 11/23/2021 What Type Of Diet Are You Following? REGULAR [email or web address] Information n ot available 11/23/2021 What Is The Highest Grade Or Level Of School You Have Completed Or The Highest Degree You Have Received? [id number] [email or web address] Information not available 11/23/2021 How Many Times Per Week Do You Exercise? 1-2 Times Per Week [email or web address] Information not available 11/23/2021 What Was The Date Of Your Most Recent Tobacco Screening? 11/27/2022 [email or web address] Information not available 11/27/2022 What Is Your Relationship Status? [email or web address] Information not available 11/23/2021 Sex: Unknown Functional Status Question Answer Note LastModified by Organizat ion Details LastModified Time Do you use any illicit or recreational drugs? No [email or web address] Information not available 11/23/2021 What is your level of alcohol consumption? None [email or web address] Information not available 11/23/2021 Are you currently employed? No [email or web address] Information not available 11/27/2022 Are you able to walk? 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 Occasional Information not available 11/23/2021 Mental Status None recorded. Family History Relationship Description Onset Age of this Age Resolved Age Notes LastModified by Organization Details LastModified Time Father No current problems or disability [email or web address] Not available 11/06 13:20:36 Mother No current problems or disability [email or web address] Not available 11/06 13:20:36 Medical History Condition Response Bipolar Disease N Coronary Artery Disease N Seizure Disorder N Gout N Atrial Fibrillation N Thyroid Disease N Hernia N Head Trauma/Injury N COPD N Depression N Anxiety Disorder N Acid Reflux (GERD) Y Cancer N Skin Disorder N Stroke N High Cholesterol N Liver Disease N Rheumatoid Arthritis N Headaches N Fibromyalgia N Autoimmune Disease N Kidney Disease N Osteoarthritis N Neurosurgery N DVT N Peptic Ulcer Disease N Anemia Y Heart Attack ([place]) N Diabetes N Cardiomyopathy N Bleeding Disorder N CHF N AIDS/HIV N Inflammatory Bowel Disease N Dementia N Asthma N Substance Abuse N Sleep Apnea N Hepatitis N Heart Disease N Pulmonary Embolism N Chronic Low Back Pain Y Hypertension N Osteoporosis N Gynecological HistoryNo gynecological history recorded. Obstetrics History GPAL:G 0 P 0 0 0 0 Past Encounters Encounter ID Performer Location Encounter Start Date Encounter Closed Date Diagnosis/Indication Diagnosis SNOMED-CT Code Diagnosis ICD10 Code Diagnosis Note [id number] Varghese Borja MD [place] [address] [place] [address] 11/23/2021 13:09:10 11/23/2021 13:39:46 Long-term drug therapy [id number] Z79.899 The urine sample is being sent for quantitati ve LCMS analysis of illicit drugs (Cocaine, Methamphet amine, Heroin, Fentanyl, THC, Synthetic Cannabinoi ds, Kratom, MDMA, PCP, and Synthetic Stimulants , Opiates (Codeine, Hydrocodon e, Hydromorph one, and Morphine), Oxycodone, Oxymorphon e, Methadone, Synthetic Opioids (Tramadol, Tapentadol , and Buprenorph ine), Benzodiaze pines (Alprazola m, Clonazepam , Lorazepam, Diazepam, Nordazepam , Oxazepam, and Temazepam) , Gabapentin , Pregabalin , Muscle Relaxants (Carisopro dol, Cyclobenza maylin, and Meprobamat e), Ketamine, Nalaxone, and Amphetamin e, as this patient is being prescribed opioid medication s for the first time at this practice. The purpose of this analysis is to confirm the patients stated medication usage and to establish baseline medication and metabolite quantities , and to evaluate for use of medication s that are not prescribed or reported by the patient. Lumbar spondylosis 48269 0009 M47.816 Degenerati on of lumbar intervertebral disc 99157979 M51.36 [id number] Varghese Borja MD [place] [address],[place] [address] 01/22/2022 10:19:17 01/22/2022 11:21:07 Pain disorder with psychological factor [id number] 07 F45.42 [id number] MD [place] [address] [address] 02/01/2022 09:41:40 02/01/2022 10:25:28 Long-term drug therapy 090044372 Z79.899 Send for LCMS confirmati on of Opiates (Codeine, Hydrocodon e, Hydromorph one, Morphine, and Heroin) to confirm the quantitati ve level of drug and metabolite s, as the preliminar y IA test for Opiates is negative, but the patient is prescribed these medication s and reports taking them within the last 48-72 hours. Send for LCMS confirmati on of Oxycodone and Oxymorphon e as these drugs are frequently not detected with IA testing at 300ng/mL and these are frequently used and/or abused pain medication s in our community. Send for LCMS confirmati on of Synthetic Opioids (Fentanyl, Methadone, Tramadol, Tapentadol , and Buprenorph ine) as these drugs will not be detected in Opiate IA testing and these are frequently used and/or abused pain medication s in our community. Lumbar spondylosis 57676 0009 M47.816 Degenerati on of lumbar intervertebral disc 60564334 M51.36 [id number] Varghese Borja MD [place] [address],[place] [address] 02/02/2022 11:49:49 02/02/2022 11:55:47 Pain disorder with psychological factor [id number] 07 F45.42 [id number] MD [place] [address],[place] [address] 03/04/2022 15:05:48 03/05/2022 08:08:50 Pain disorder with psychological factor 0160776882 07 F45.42 [id number] Mango Kumari MD [place] [address],[place] [address] [place] [address] 04/03/2022 09:59:43 04/03/2022 10:18:06 Lumbar spondylosis 936358276 M47.816 Degenerati on of lumbar intervertebral disc 48877581 M51.36 Long-term drug therapy 198509318 Z79.542 [id number] Varghese Borja MD [place] [address],[place] [address] [place] [address] 04/29/2022 18:41:01 04/30/2022 08:13:15 Pain disorder with psychological factor 4611418400 07 F45.42 [id number] Varghese Borja MD [place] [address],[place] [address] [place] [address] 05/14/2022 15:29:21 05/14/2022 15:48:55 Lumbar spondylosis 920473991 M47.667 [id number] Loren Dudley APRN [place] [address],[place] [address] [place] [address] 05/28/2022 10:19:46 05/28/2022 10:56:15 Long-term drug therapy 608638061 Z79.899 Lumbar spondylosis 46951 0009 M47.816 Degenerati on of lumbar intervertebral disc 83548374 M51.36 [id number] Varghese Borja MD [place] [address],[place] [address] [place] [address] 06/04/2022 14:55:58 06/04/2022 15:18:53 Lumbar spondylosis 550848345 M47.377 [id number] Varghese Borja MD [place] [address],[place] [address] [place] [address] 06/13/2022 11:31:34 06/13/2022 12:59:53 Pain disorder with psychological factor 2598689910 07 F45.42 [id number] Varghese Borja MD [place] [address],[place] [address] [place] [address] 08/02/2022 10:02:53 08/02/2022 10:27:56 Lumbar spondylosis 385375086 M47.816 Degenerati on of lumbar intervertebral disc 83865532 M51.36 Long-term drug therapy 575215660 Z79.598 [id number] Varghese Borja MD [place] [address],[place] [address] [place] [address] 10/01/2022 15:33:38 10/01/2022 15:48:45 Lumbar spondylosis 338748631 M47.816 Degenerati on of lumbar intervertebral disc 43599476 M51.36 Long-term drug therapy 305002023 Z79.267 [id number] Varghese Borja MD [place] [address],[place] [address] [place] [address] 6 10/17/2022 09:51:12 10/17/2022 10:05:40 Lumbar spondylosis 189128632 M47.549 [id number] Varghese Borja MD [place] [address],[place] [address] [place] [address] 6 10/15/2022 15:46:18 10/15/2022 17:23:58 Pain disorder with psychological factor 7066580655 07 F45.42 [id number] Varghese Borja MD [place] [address],[place] [address] [place] [address] 6 11/01/2022 16:06:20 11/02/2022 11:04:16 Pain disorder with psychological factor 0050300803 07 F45.42 [id number] Varghese Borja MD [place] [address],[place] [address] [place] [address] 11/27/2022 08:36:43 11/27/2022 09:21:09 Long-term drug therapy 614080357 Z79.899 Lumbar spondylosis 74711 0009 M47.816 Degenerati on of lumbar intervertebral disc 15416945 M51.36 [id number] Varghese Borja MD [place] [address],[place] [address] [place] [address] 12/03/2022 15:41:58 12/03/2022 16:58:14 Pain disorder with psychological factor 6141355369 07 F45.42 Health Concerns Section Related Observation LastModified by Organization Detai ls LastModified Time None Recorded Concern Status LastModified by Organization Details LastModified Time None Recorded Advance Directives Directive N: Payers Insurance Date Sequence Insurance Name Policy Number Policy Jauregui Covered Member ID Jauregui Member ID Guarantor Name 07/14/2022 3 MEDICAID-[facility] CHOICES - FFS/TRADITIONAL Esau Tomas Morgan [id number] Esau Diane 12/20/2022 2 [place] [id number] Esau K Diane [id number] Esau Diane 03/05/2022 3 [facility] Esau Morgan [id number] Esau Morgan 12/03/2022 1 [place] [id number] Esau K Diane [id number] Esau Diane 10/02/2022 1 [facility] ([facility] Esau Tomas Diane [id number] Esau Morgan 06/25/2022 3 [facility]) Esau Morgan [id number] Esau Diane Notes Date Note Type Note Provider Name and Address Organization Details Recorded Time 10/01/2022 text/html Follow-up (meds & injections)Reported bypatient.Improvement :Pain is the same as compared to last visit. Pain Scores:Average pain- 6/10; Current pain- 6/10; Worst pain- 10/10 Recent Injections:LMBB/Facet injections-; 05/14/22:DIAGNOSTIC BILATERAL LMBB L3-5, #1- 100% several hours Current Analgesics:Opioids- hydrocodone; Reported pain relief- 50% for 4 hours; 10/01/2022--[place] taken this afternoon Adverse Reactions:No nausea.; No vomiting.; No constipation.; No itching.; No sedation.; No respiratory depression.; No sexual dysfunction. 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 Physical Therapy:Completed course in the past; Response to therapy- stopped by therapist due to lack of improvement Neuroflow:Currently Enrolled in Neuroflow: Last PHQ9 scored depression.Low back painReported bypatient.Onset:date of onset: (2009) Location:buttock: ; pain is not radiating Context:overuse Quality:aching; burning; stabbing; throbbing Pain Intensitycurrent pain level: 6/10; average pain level: 7/10; worst pain level: 10/10 Alleviating Factors:changing positions; rest; limited weight bearing Aggravating Factors:walking; carrying; twisting; bending/squatting; getting out of bed; standing from a seated position Associated Symptoms:no swelling; no popping/clicking; no bowel incontinence; no urinary retention; no urinary incontinence; no perineal paresthesia/anesthesi a Prior Imaging:MRI Lumbar Surgery:none Previous Injections:lumbar ESIs: helped significantly; lumbar medial branch nerve blocks: helped significantly; lumbar RFA: helped significantly Previous physical therapy:completed all recommended PT visits; complete more than 6weeks; response to therapy: no improvement in pain/symptoms; Currently participating in home exercise program(HEP) (FAILED HEP DIRECTED BY DR. 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 Medications History:NSAIDs: (IBU 800-NOT HELPFUL.); Neuropathics: (GABAPENTIN-NOT HELPFUL.); Opioid pain medications: (HYDROCODONE-HELPFUL. TYLENOL #3-ALLERGIC.) Prior Pain Management:yes: (DR. IRIZARRY) Oswestry Disability Index (BEBETO)Score/Date Completed: BARBARA BLUNT NP [address] [place] [address], [phone], [facility] [employer] [facility] 10/02/2022 11:14:12 10/17/2022 text/html BILATERAL RFA L3-L5 Varghese Borja MD [address] [place], [address], [facility] 10/17/2022 10:23:39 11/27/2022 text/html Follow-up (meds & injections)Reported bypatient.Improvement :Pain is the same as compared to last visit.; Ortho Kyle has taken her off work . She is scheduled to see Alejandro and Dr. Sung for a surgical Consult later this week Pain Scores:Average pain- 6/10; Current pain- 6/10; Worst pain- 10/10 Recent Injections:LMBB/Facet injections-; Radiofrequency Ablation-; 05/14/22:DIAGNOSTIC BILATERAL LMBB L3-5, #1- 100% several hours Current Analgesics:Opioids- hydrocodone; Reported pain relief- 50% for 4 hours; [place] taken today Adverse Reactions:No nausea.; No vomiting.; No constipation.; No itching.; No sedation.; No respiratory depression.; No sexual dysfunction. 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 Physical Therapy:Completed course in the past; Response to therapy- stopped by therapist due to lack of improvement Neuroflow:Currently Enrolled in Neuroflow: Last PHQ9 scored depression. Low back painReported bypatient.Onset:date of onset: (2009) Location:buttock: ; pain is not radiating Context:overuse Quality:aching; burning; stabbing; throbbing Pain Intensitycurrent pain level: 6/10; average pain level: 7/10; worst pain level: 10/10 Alleviating Factors:changing positions; rest; limited weight bearing Aggravating Factors:walking; carrying; twisting; bending/squatting; getting out of bed; standing from a seated position Associated Symptoms:no swelling; no popping/clicking; no bowel incontinence; no urinary retention; no urinary incontinence; no perineal paresthesia/anesthesi a;weakness Prior Imaging:MRI Lumbar Surgery:none Previous Injections:lumbar ESIs: helped significantly; lumbar medial branch nerve blocks: helped significantly; lumbar RFA: helped significantly Previous physical therapy:completed all recommended PT visits; complete more than 6weeks; response to therapy: no improvement in pain/symptoms; Currently participating in home exercise program(HEP) (FAILED HEP DIRECTED BY DR. 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 Medications History:NSAIDs: (IBU 800-NOT HELPFUL.); Neuropathics: (GABAPENTIN-NOT HELPFUL.); Opioid pain medications: (HYDROCODONE-HELPFUL. TYLENOL #3-ALLERGIC.) Prior Pain Management:yes: (DR. IRZIARRY) Oswestry Disability Index (BEBETO)Score/Date Completed: BARBARA BLUNT NP [address] [place] [address], [phone], [facility] 12/18/2022 10:12:55 OBGyn Episode No OBEpisode recorded.
--- OUTSIDE RECORDS SUMMARY | 2024-10-04 19:44 | XMS_ITS | Clinical Summary ---
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 Name Role Phone Say PETERSON MD, Sohail Collins [facility] P rovider Allergies Active Allergy Reactions Criticality Noted Date Comments Amoxicillin-Pot Clavulanate Itching,Rash 11/23/2021 AUGMENTIN Cephalexin Itching 11/23/2021 Potassium Clavulanate Other (See Comments) 08/06 Sulfa (Sulfonamide Antibiotics) Shortness Of Breath,Hives 11/04/2012 Medications methylPREDNISolo ne (MEDROL DOSPACK) 4 mg Oral Tablets, Dose PackIndications: Acute right hip pain,Sprain of ligaments of lumbar spine, initial encounter,Sciati ca of right side,DDD (degenerative disc disease), lumbar follow package directions 21 Tablet 3 Active Additional Information Patient not taking.Reason: Therapy Completed, Reported on 12/26/2022 diclofenac (VOLTAREN) 1 % Top Gel APPLY TWO (2) GRAMS TO THE AFFECTED AREA(S) BY TOPICAL ROUTE FOUR (4) TIMES PER DAY 3 Active ergocalciferol (DRISDOL) 1,250 mcg (50,000 unit) Oral Capsule TAKE ONE (1) CAPSULE EVERY WEEK BY ORAL ROUTE DIRECTED FOR 28 DAYS. 3 Active HYDROcodone-acet aminophen (NORCO) 10-325 mg Oral Tablet TAKE ONE (1) TABLET FOUR (4) TIMES A DAY BY ORAL ROUTE FOR 30 DAYS. 3 Active ketoconazole (NIZORAL) 2 % Top Cream APPLY TO THE AFFECTED AREA(S) BY TOPICAL ROUTE ONCE DAILY 3 Active lansoprazole (PREVACID) 30 mg Oral Capsule, Delayed Release(E.C.) TAKE ONE (1) CAPSULE EVERY DAY BY ORAL ROUTE FOR 90 DAYS. 3 Active ketorolac (TORADOL) 10 mg Oral Tablet Take by mouth every 6 hours as needed for Pain. Active traMADoL (ULTRAM) 50 mg Oral Tablet Take 1 Tablet by mouth every 8 hours. 20 Tablet 3 Active Additional Information Patient not taking.Reason: Never filled, Reported on 12/26/2022 traMADoL (ULTRAM) 50 mg Oral Tablet Take 1 Tablet by mouth every 8 hours. As needed. 20 Tablet 3 Active Additional Information Patient not taking.Reason: Never filled, Reported on 12/26/2022 diclofenac (VOLTAREN) 75 mg Oral Tablet, Delayed Release (E.C.) Take 1 Tablet by mouth 2 times daily. 30 Tablet 3 Active Additional Information Patient not taking.Reason: Therapy Completed, Reported on 12/26/2022 Dexlansoprazole (DEXILANT) 60 mg Oral Cap, Delayed Rel., Multiphasic Dexilant 60 mg capsule, delayed release TAKE 1 CAPSULE BY MOUTH ONCE DAILY Active nabumetone (RELAFEN) 750 mg Oral TabletIndication s:Bulging lumbar disc Take 1 Tablet by mouth 2 times daily. 60 Tablet 3 Active Additional Information Patient not taking.Reason: Pt electing to not take the medication, Reported on 12/26/2022 tiZANidine (ZANAFLEX) 4 mg Oral TabletIndication s:Bulging lumbar disc Take 2 tablets by mouth every night. 40 Tablet 3 Active Additional Information Patient not taking.Reason: Pt electing to not take the medication, Reported on 12/26/2022 gabapentin (NEURONTIN) 100 mg Oral CapsuleIndicatio ns:Bulging lumbar disc,Sciatica, right side 2 caps nightly 60 Capsule 3 Active Additional Information Patient not taking.Reason: Therapy Completed, Reported on 12/26/2022 diclofenac (VOLTAREN) 75 mg Oral Tablet, Delayed Release (E.C.)Indication s:Bulging lumbar disc,Sciatica, right side,Sprain of ligaments of lumbar spine, initial encounter,DDD (degenerative disc disease), lumbar Take 1 Tablet by mouth 2 times daily. 30 Tablet 3 Active tiZANidine (ZANAFLEX) 4 mg Oral TabletIndication s:Bulging lumbar disc,Sciatica, right side,Sprain of ligaments of lumbar spine, initial encounter,DDD (degenerative disc disease), lumbar Take 1 Tablet by mouth nightly as needed. 30 Tablet 3 Active Additional Information Patient not taking.Reason: Pt electing to not take the medication, Reported on 12/26/2022 gabapentin (NEURONTIN) 100 mg Oral CapsuleIndicatio ns:Bulging lumbar disc,Sciatica, right side,Sprain of ligaments of lumbar spine, initial encounter,DDD (degenerative disc disease), lumbar Take 2 tablets qhs 60 Capsule 1 3 Active diclofenac (VOLTAREN) 75 mg Oral Tablet, Delayed Release (E.C.) Take 1 Tablet by mouth 2 times daily. 60 Tablet 1 3 Active tiZANidine (ZANAFLEX) 4 mg Oral TabletIndication s:DDD (degenerative disc disease), lumbar,Radiculop athy of lumbar region,Lumbar foraminal stenosis,Bulging lumbar disc Take 1 Tablet by mouth nightly as needed. 30 Tablet 3 Active gabapentin (NEURONTIN) 300 mg Oral CapsuleIndicatio ns:DDD (degenerative disc disease), lumbar,Radiculop athy of lumbar region,Lumbar foraminal stenosis,Lumbar spondylosis,Bulg ing lumbar disc Take 1 Capsule by mouth nightly. 30 Capsule 1 3 Active Active Problems Problem Noted Date Diagnosed Date Bulging of lumbar intervertebral disc 09/24/2022 Sciatica, right side 08/31/2022 Bulging lumbar disc 08/31/2022 Acute right hip pain 08/08/2022 Plantar fasciitis 11/23/2021 Immunizations Immunization Administration Dates Next Due Influenza, Split (Incl. Purified Surface Antigen ) 01/10/2023,01/08/2022 makexyz SARS-CoV-2 Bivalent B ooster Vaccine 12+ Years ([place] border) 04/19/2022 Social History Tobacco Use Types Packs/Day Years Used Date Smoking Tobacco: Never Smokeless Tobacco: Never Tobacco Cessation:Counseling Given: Not Answered Comments Unknown Sex and Gender Information Value Date Recorded Sex Assigned at Not on file Legal Sex Female 1:35 PM EDT Gender Identity Not on file Sexual Orientation Not on file Obstetrics History Last Filed Vital Signs Vital Sign Reading Time Taken Comments Blood Pressure - - Pulse - - Temperature - - Respiratory Rate - - Oxygen Saturation - - Inhaled Oxygen Concentration - - Weight 95.7 kg (211 lb) 10/23/2022 10:57 AM EDT Height 167.6 cm (5' 6 ) 10/23/2022 10:57 AM EDT Body Mass Index 34.06 10/23/2022 10:57 AM EDT Plan of Treatment Health Maintenance Due Date Last Done Comments Annual Wellness Exam 1987 Hepatitis B Vaccine (1 of 3 - 19+ 3-dose series) 2003 Cervical Cancer Screening 2005 Pap Smear 2005 HPV/Pap Cotest 2014 COVID-19 Vaccine ( - 2023- season) 2023 04/19/2022 Breast Cancer Screening 2024 Influenza Vaccine (Season Ended) 2024 01/10/2023, 01/08/2022, 01/09/2019, Additional history exists DTaP/TDaP/Td (2 - Td or Tdap) 04/25/2027 04/25/2017 Meningococcal B Vaccine Aged Out No l onger eligible based on patient's age to complete this topic Pneumococcal Vaccine 0-49 Aged Out No longer eligible based on patient's age to complete this topic Insurance [address] [place], [place] [address] * Guarantor: ESAU CONTRERAS Account Type Relation to Patient Date of Phone Billing Address [employer] [id number] [employer] [facility] [place] [address] Care Teams Green Material Value Added Assessor Relationship Specialty Start Date End Date Sohail Deal III, MD [address] [place] [id number] PCP - General Family Medicine 03/15/15
--- OUTSIDE RECORDS SUMMARY | 2024-10-04 19:44 | XMS_ITS | Data Portability ---
Author Organization [facility] Address [address] [place] [address] Care Team Providers Care Reference Data Expert Name Role Phone TEVIN CHRISTINA Director Investor Relations Assessment No assessment recorded. Plan of Treatment Reminders Order Date Submit Date Provider Last Modified By Organization Details Last Modified Time Details Appointments None recorded. Lab rapid strep group A, throat 2024 025 [facility], [address] [place], [address], 5 10:46:48 urinalysis, dipstick 2023 024 [facility], [address] [place], [address], 4 12:01:06 culture, urine 2023 024 [facility], [address], [facility], [place], [address], 4 03:36:44 Referral logistics intern referral 2023 024 KENDY Edward DPM, [address] [place], [address], 4 11:52:44 Procedures None recorded. Surgeries None recorded. Imaging XR, shoulder, 2 or more view 2024 025 [facility], [address] [place] [address] Rd., [place], [address], 16:36:10 electromyog ilana + nerve conduction study 2024 025 KENDY Louis Guevara MD, [address] [place] [address] [place], [address], 08:25:57 Medication Orders dexamethaso ne sodium phosphate 10 mg/mL injection solution 2024 025 Not available 10:28:45 ketorolac 60 mg/2 mL intramuscul ar solution 2024 025 Not available 10:28:48 methocarbam ol 500 mg tablet [address] [facility], [address] [place] [address], [address], 5 16:57:04 lidocaine 5 % topical patch [address] [facility], [address] [place] [address], [address], 5 16:57:32 ondansetron 8 mg disintegrat ing tablet [address] [facility], [address] [place] [address], [address], 5 08:50:54 ketorolac 60 mg/2 mL intramuscul ar solution 2024 025 Not available 5 10:28:48 Zithromax Z-Mo 250 mg tablet 2024 025 [facility], [address] [place] [address], [address], 08:34:00 ketorolac 60 mg/2 mL intramuscul ar solution 2024 025 Not available 10:28:48 cyclobenzap rine 5 mg tablet 2024 025 [facility], [address] [place] [address], [address], 5 10:13:32 dexamethaso ne sodium phosphate 4 mg/mL injection solution 2024 025 Not available 08:19:49 metoprolol succinate ER 25 mg tablet,exte nded release 24 hr 2024 025 [facility], [address] [place] [address], [address], 5 10:09:52 omeprazole 40 mg capsule,del ayed release 2024 025 [facility], [address] [place] [address], [address], 5 10:09:52 Cipro 500 mg tablet 2023 024 [facility], [address] [place] [address], [address], 5 09:45:27 metoprolol succinate ER 25 mg tablet,exte nded release 24 hr [email or web address] [facility] [place], [address] [place] [address], [address], 4 12:37:31 omeprazole 40 mg capsule,del ayed release 2023 024 [facility], [address] [place] [address], [place], [address], 4 12:11:23 Diflucan 150 mg tablet 2023 [facility], [address] [facility], [place], [address], 5 09:45:23 clotrimazol e-betametha sone 1 %-0.05 % topical cream 2023 [facility], [address] [facility], [place], [address], 4 11:50:06 ketorolac 60 mg/2 mL intramuscul ar solution 2023 024 Not available 5 10:28:48 Depo-Medrol 80 mg/mL suspension for injection 2023 Not available 11:24:39 Patient TargetsNo targets recorded. Patient Instructions Encounter Date Encounter Id Patient Instructions Last Modified By Organization Details Last Modified Time 02/20/2024 [id number] body mass index: care instructions Not available 02/20/2024 13:01:01 learning about healthy weight Not available 02/20/2024 13:01:01 Advised to take medication as directed Will call with results of labs once available Discussed increasing water intake To call office for questions, concerns or issues Not available 02/20/2024 12:42:53 06/10/2024 [id number] For acute pain, rest, intermittent application of cold packs (later, may switch to heat, but do not sleep on heating pad), analgesics and muscle relaxants are recommended. Discussed longer term treatment plan of prn NSAID's and discussed a home back care exercise program with flexion exercise routine to start AFTER a few days of rest. Not available 06/10/2024 10:43:18 Advised to take medication as directed Will call with results of imaging once available. Discussed using heating pain (15-20 minutes every 2-3 hours while awake) To call office for questions, concerns or issues Not available 06/10/2024 10:43:02 06/30/2024 [id number] Advised to take medication as directed Discussed ortho urgent care if needed To call office for any questions, concerns or issues Not available 06/30/2024 14:54:00 07/17/2024 [id number] All questions answered and pt/guardian satisfied with treatment plan. Call with changes RTC or ED if symptoms change or worsen Keep next interval checkup Cont. chronic meds as prescribed Chronic conditions are stable Discussed natural and expected course of this diagnosis and need to alert the office if symptoms do not follow expected course or if any worsens [email or web address] Not available 07/20/2024 14:58:59 Reason for Referral Certification Engineer Referral for Pain in right foot Referring Physician: Ceci Lowery, Family Medicine, Encounter Date: 02/20/2024 Results Created Date Observation Date Name Description Value Unit Range Abnormal Flag Note LastModifiedBy Organization Detail LastModifiedTime 02/20/2002/21/2024 URINE CULTU RE, SOHEILA NE urine culture, routine Final report Not Available [facility] [address] [facility], [place], [address], 02/22/2024 03:36:44 02/20/2002/21/2024 URINE CULTU REKELLYI NE result 1 COMMEN T Mixed uroge nital chata 10,00 0-25, 000 colon y formi ng units per mL Not Available [facility] ([facility]) [address] [facility], [place], [address], 02/22/2024 03:36:44 02/20/2002/20/2024 urina lysis , dipst ick Leukocytes Trace Not Available [facility] [address] [place], [address], 02/20/2024 11:33:12 02/20/2002/20/2024 urina lysis , dipst ick Nitrite negati ve Not Available [facility] [address] [place], [address], 02/20/2024 11:33:12 02/20/20 24 02/20/2024 urina lysis , dipst ick Urobilinogen 1 Not Available [address] [place], [address], 02/20/2024 11:33:12 02/20/20 24 02/20/2024 urina lysis , dipst ick Protein 30 Not Available [address] [place], [address], 02/20/2024 11:33:12 02/20/2002/20/2024 urina lysis , dipst ick pH 5.5 Not Available [address] [place], [address], 02/20/2024 11:33:12 02/20/20 24 02/20/2024 urina lysis , dipst ick Blood Negati ve Not Available [address] [place], [address], 02/20/2024 11:33:12 02/20/20 24 02/20/2024 urina lysis , dipst ick Specific [place] 1.030 Not Available [address] [place], [address], 02/20/2024 11:33:12 02/20/20 24 02/20/2024 urina lysis , dipst ick Ketone Negati ve Not Available [address] [place], [address], 02/20/2024 11:33:12 02/20/20 24 02/20/2024 urina lysis , dipst ick Bilirubin Negati ve Not Available [address] [place], [address], 02/20/2024 11:33:12 02/20/20 24 02/20/2024 urina lysis , dipst ick Glucose Negati ve Not Available [facility] [address] [place], [address], 02/20/2024 11:33:12 06/11/19 25 06/10/2024 rapid strep group A, throa t Strep negati ve Not Available [facility] [address] [place], [address], 06/10/2024 10:09:40 10/02/19 24 09/16/2023 CT, angio gram, chest , w/wo contr ast No observ ation record ed. Not Available 2023 16:01:46 06/12/19 25 06/11/2024 XR, shoul eric, 2 or more view No observ ation record ed. [facility] [address] [place], [address], 06/11/2024 17:28:23 06/26/19 25 06/23/2024 elect romyo gram + nerve condu ction study No observ ation record ed. Louis Guevara MD [address] [facility] , [place], [address], 06/30/2024 08:25:57 08/17/19 25 08/12/2024 elect brett gomez am No observ ation record ed. [facility] [address], [place], [address], 08/17/2024 08:49:48 Result Notes None recorded. Problems Name Problem SNOMED Code Status Onset Date Resolution Date Notes Provider Name and Address Organization Details Recorded Time Pregnanc y 76294517 Completed 201606/20/2017 [facility] [address], [place], [address] , [facility] - [facility] 8 09:55:34 Normal pregnanc y 25012926 Completed 201603/07/2017 Silke damon, [place] - [facility] 7 10:56:45 Antenata l screenin g Completed FTS with - NT 2.0 mm- NEG serum , AFP WNL [facility] [address], [place], [address] , [facility] - [facility] 8 09:54:53 History of sleeve gastrect zoltan [id number] 9107 Completed 11/30: check vitamin levels 12/05: Vit D levels low;(pre v on 50,000 units weekly until 07/23) advise 600IU daily includin g PNV dose. Vit D level 01/21=_ 27.3 (rec restat 08644 units q wk 01/30)__ _ B12, iron labs, folate normal. Plan dieticia n referral . Check vitamins qTM; REC 32 wk growth scan Max 300+, min 165; 05/21 Vit D 28--nikos tnue 06449 dose [facility] [address], [place], [address] , [facility] - [facility] 8 09:54:53 Harmful pattern of use of cannabis 67285675 Completed 11/30 UTox positive //Denies use but admits being around users- Recommen d avoid contact. [facility] [address], [place], [address] , [facility] - [facility] 8 09:54:53 History of bariatri c surgical procedur e 358225440 Completed 201608/14/2023 Sarita France, [employer] [address], [place], [address] , [facility] - [facility] 4 10:03:42 Past pregnanc y history of prematur e delivery 639134482 Completed 2016 pulled old records from 1st pregnanc y. Delivere d [address] Merari vela- abo ut 35 weeks No care. Dated by Dubowitz exam. Consult with LLS- Would only treat with [place] if CL shortene d. Needs CL @ 16=-2.6- 2.8 cm, Isauro rxd, Needs CL 18, 20 ,22,24 wks Celeston e 12mg given 05/02-04/09 6 [facility] [address], [place], [address] , [place] - [facility] 8 09:54:53 Past pregnanc y history of prematur e delivery 129862831 Completed 201606/20/2017 pulled old records from 1st pregnanc y. Delivere d [address] Merari vela- rambo ut 35 weeks No care. Dated by Dubowitz exam. Consult with LLS- Would only treat with [place] if CL shortene d. Needs CL @ 16=-2.6- 2.8 cm, Isauro rxd, Needs CL 18, 20 ,22,24 wks Cel[place] e 12mg given 05/02-04/09 6 Infusion Nurse [facility] [address], [place], [address] , [place] - [facility] 8 09:55:37 Influenz a vaccine needed 64817718137 06 Completed 201612/26/2018 given 01/11. Tdap 118-18 Salena Moreno RN [address], [place], [address] , [facility] - [facility] 9 15:14:20 Influenz a vaccine needed 21517770014 06 Completed 2016 given 01/11. Tdap 04-25-18 Infusion Nurse [facility] [address], [place], [address] , [place] - [facility] 8 09:54:53 Maternal obesity complica ting pregnanc y, childbir th and the puerperi um, antepart 69862252966 7 Completed 2016 In[facility] [address], [place], [address] , [facility] - [facility] 8 09:54:53 Maternal obesity complica ting pregnanc y, childbir th and the puerperi , antepart 45879054307 7 Completed 201606/20/2017 In[facility] Nurse [facility] [address], [place], [address] , [place] - [facility] 8 09:55:40 Cyst of left ovary 98346580674 515167 Completed 4.5 cm left ovarian cyst at 9 wk; decrease d to 3.5 cm , no sx at 14 weeks. suspect physiolo gic: 04-16-17 Rt 3 cm, Lt 4 cm [facility] [address], [place], [address] , [place] - [facility] 8 09:54:53 History of sleeve gastrect zoltan 78141566498 9107 Active 11/30: check vitamin levels 12/05: Vit D levels low;(pre v on 50,000 units weekly until 07/23) advise 600IU daily includin g PNV dose. Vit D level 01/21=_ 27.3 (rec restat 37824 units q wk 01/30)__ _ B12, iron labs, folate normal. Plan dieticia n referral . Check vitamins qTM; REC 32 wk growth scan Max 300+, min 165; 05/21 Vit D 28--nikos tnue 05571 dose Sarita France APRN [address], [place], [address] , [place] - [facility] 4 10:03:16 Vitamin D deficien cy 40696915 Completed 2016 [facility] [address], [place], [address] , [place] - [facility] 8 09:54:53 Vitamin D deficien cy 29689694 Active 2016 Sarita France APRN [address], [place], [address] , [place] - [facility] 4 10:03:16 High risk pregnanc y 94939086 Completed 201606/20/2017 [facility] [address], [place], [address] , [place] - [facility] 8 09:55:45 Itching 223667572 Completed LFTs & bile acids ordered 03/21 [facility] [address], [place], [address] , [place] - [facility] 8 09:54:53 dysrhyth evelio 275182340 Completed [x ] MFM consult with possible echo. Check TFTs 03/28 MFM says anatomy complete and normal and f/u 8 weeks for growth. no mention of echo [facility] [address], [place], [address] , [place] - [facility] 8 09:54:53 Malprese ntation of fetus 66524832 Completed 06/06 BREECH-- plan f/u on 06/13 to see if turned as baby is very active. If still breech, consider pCS versus ECV [facility] [address], [place], [address] , [place] - [facility] 8 09:54:53 Pain of joint 52398500 Active 2017 Sarita France APRN [address], [place], [address] , [place] - [facility] 4 10:03:16 Sciatica 26070287 Active 2017 Sarita France APRN [address], [place], [address] , [place] - [facility] 4 10:03:16 Allergic disposit ion 616566676 Active 2018 Sarita France APRN [address], [place], [address] , [place] - [facility] 4 10:04:12 Anemia 401355714 Completed 201808/14/2023 Sarita France APRN [address], [place], [address] , [place] - [facility] 4 10:04:10 Depressi ve disorder 89418049 Active 2018 Sarita France APRN [address], [place], [address] , [place] - [facility] 4 10:03:16 Restless legs 47913475 Active 2019 Sarita France APRN [address], [place], [address] , [place] - [facility] 4 10:03:16 Chronic sinusiti s 01565657 Active 2019 Sarita France APRN [address], [place], [address] , [place] - [facility] 4 10:03:16 Suspecte d COVID-19 532426549 Completed 201908/29/2020 Removal Reason: Problem marked historic al by user [email or web address] from the COVID-19 watch flag Wen Juan null, [place] - [facility] 09:32:08 COVID-19 850976610 Completed 201908/29/2020 Removal Reason: Problem marked historic al by user [email or web address] from the COVID-19 watch flag Wen Juan null, [place] - [facility] 09:10:17 Prediabe corky 456299058 Active 2020 Sarita France APRN [address], [place], [address] , [place] - [facility] 4 10:03:16 Iron deficien cy 60415774 Active 2020 Sarita France APRN [address], [place], [address] , [place] - [facility] 4 10:03:16 Serum iron below referenc e range 755523873 Completed 202008/14/2023 Sarita France APRN [address], [place], [address] , [place] [facility] 4 10:03:23 Body mass index 30+ - obesity 493492454 Completed 202008/14/2023 Sarita France APRN [address], [place], [address] , [place] - [facility] 4 10:03:58 Suspecte d COVID-19 279343947 Completed 202001/31/2021 Removal Reason: Problem marked historic al by user [email or web address] from the COVID-19 watch flag Wen Juan null, [place] - [facility] 09:32:08 Chronic low back pain 927171813 Active 2020 Sarita France APRN [address], [place], [address] , [place] [facility] 4 10:03:16 Bacteria l vaginosi s 865847334 Completed 202111/01/2021 Sarita France APRN [address], [place], [address] , [place] - [facility] 2 23:31:34 Calcanea l spur of left foot 81288944124 9109 Active 2021 Sarita France APRN [address], [place], [address] , [place] - [facility] 4 10:03:16 Calcanea l spur of right foot 88697417011 9100 Active 2021 Sarita France APRN [address], [place], [address] , [place] - [facility] 4 10:03:16 Osteoart hritis of midfoot 094234966 Active 2021 bilatera l Sariat France APRN [address], [place], [address] , [place] - [facility] 4 10:03:16 Cough 98376223 Completed 202108/14/2023 Sarita France APRN [address], [place], [address] , [place] - [facility] 4 10:03:55 Pityrias is versicol or 92706470 Active 2021 Sarita France APRN [address], [place], [address] , [place] - [facility] 4 10:03:16 Peroneus brevis tenosyno vitis 585938855 Active 2021 Pawsat Sarita France APRN [address], [place], [address] , [place] - [facility] 4 10:03:32 Strain of muscle of left shoulder 30278969866 104056 Completed 202105/27/2023 Sarita France APRN [address], [place], [address] , [place] [facility] 4 16:59:23 Bilatera l plantar fasciiti s 74046509976 659571 Active 2021 Dx by ortho Kyle Sarita France, [employer] [address], [place], [address] , [place] [facility] 4 10:03:16 Influenz a-like symptoms 188785378 Completed 202101/03/2023 Sarita Román, [employer] [address], [place], [address] , [place] [facility] 3 09:15:27 Chronic headache disorder 998305266 Active 2023 Sarita Chakrabortyall, [employer] [address], [place], [address] , [place] [facility] 4 10:29:11 Muscle weakness 71971971 Active 2023 Saritacamille France, [employer] [address], [place], [address] , [place] [facility] 4 10:29:16 Dizzines s 748786883 Active 2023 Sarita France, [employer] [address], [place], [address] , [place] [facility] 4 10:29:14 Low back pain 592309657 Active 2023 Ceci Lowery, [employer] [address], [place], [address] , [place] [facility] 4 12:15:04 Insomnia 634583937 Active 2023 Ceci Lowery, [employer] [address], [place], [address] , [place] [facility] 4 12:17:46 Migraine without aura 03517384 Active 2023 Lefty Contreras, DO [address], [place], [address] , [place] [facility] 4 13:28:46 Candidia sis of vagina 53953791 Completed 202306/30/2024 Crystal Girish mar[place], [place] - [facility] 5 08:23:52 Tachycar princess 7120403 Active 2023 Ceci Lowery, [employer] [address], [place], [address] , [place] [facility] 4 11:48:51 Pain in right foot 93810194115 9107 Active 2023 Ceci Lowery, [employer] [address], [place], [address] , [place] [facility] 4 11:51:08 Gastroes ophageal reflux disease without esophagi tis 272642896 Active 2023 Ceci Lowery, [employer] [address], [place], [address] , [place] [facility] 4 12:10:51 Pain of left shoulder joint 14394555081 823401 Active 2024 Ceci Lowery, [employer] [address], [place], [address] , [place] [facility] 5 10:00:46 Pharyngi tis 361030553 Active 2024 Ceci Lowery, [employer] [address], [place], [address] , [place] [facility] 5 10:09:37 Paresthe wilma of upper limb 87852770 Active 2024 Ceci Lowery, [employer] [address], [place], [address] , [place] [facility] 5 10:10:12 Carpal tunnel syndrome 26555505 Active 2024 Crystal Girish null, [place] - [facility] 5 08:30:54 Carpal tunnel syndrome of left wrist 23626851260 9102 Active 2024 Crystal Girish null, [place] - [facility] 5 08:31:31 Carpal tunnel syndrome of right wrist 52951831908 9108 Active 2024 Crystal Girish [place] - [facility] 5 08:31:39 Nausea and vomiting 96203381 Active 2024 Ceci Lowery, [employer] [address], [place], [address] , [place] [facility] 5 08:42:53 Acute back pain with sciatica 219991319 Active 2024 Pietro Santos PA-C [address], [place], [address] , [place] - [facility] 5 16:52:36 Anxiety 75296822 Active Saritacamille France APRN [address], [place], [address] , [place] - [facility] 4 10:03:16 Polycyst ic ovaries Active Sarita France APRN [address], [place], [address] , [place] [facility] 4 10:03:16 Acid reflux 152875732 Active Sarita France APRN [address], [place], [address] , [place] [facility] 4 10:03:16 Uses oral contrace ption 7222681 Completed 11/30/2016 Ella [place], [place] - [facility] 7 15:00:18 Foot pain 39256244 Completed 08/14/2023 Sarita France APRN [address], [place], [address] , [place] [facility] 4 10:03:47 Problem Notes None recorded. Procedures Surgical History Date Name Laterality Status Provider Name and Address Organization Details Recorded Time 09/24/19 24 Medication Reconcilliation completed Estefania Mortensen [place] - [facility] 09/24/2023 11:45:56 09/16/19 24 cardiac catheterization completed Sarita France APRN [address], [place], [address], [place] - [facility] 09/18/2023 08:43:48 08/12/19 24 Medication Reconcilliation completed Estefania Mortensen [place] - [facility] 08/12/2023 09:21:18 08/22/19 23 Medication Reconcilliation completed Estefania Mortensen [place] - [facility] 08/21/2022 10:29:19 06/21/19 22 A1C level 6.9 and below completed Sarita France APRN [address], [place], [address], [place] [facility] 08/03/2021 21:26:01 06/04/19 20 Diastolic B/P 80-89 mm Hg completed Salena Stout [place] - [facility] 06/04/2019 10:10:56 06/04/19 20 Systolic B/P 130-139 mm Hg completed Crystal Girish [place] - [facility] 06/04/2019 10:10:51 05/19/19 20 Systolic B/P less than 130 mm Hg completed Wen Juan [place] - [facility] 05/19/2019 10:21:23 05/19/19 20 Diastolic B/P greater than or equal to 90 mm Hg completed Wen Juan [place] - [facility] 05/19/2019 10:21:30 04/28/19 20 Systolic B/P less than 130 mm Hg completed Wen Juan [place] [facility] 04/28/2019 10:07:37 04/28/19 20 Diastolic B/P less than 80 mm Hg completed Wen Juan [place] [facility] 04/28/2019 10:07:40 04/21/19 20 Systolic B/P less than 130 mm Hg completed Wen Juan [place] [facility] 04/21/2019 11:46:55 04/21/19 20 Diastolic B/P less than 80 mm Hg completed Wen Juan [place] [facility] 04/21/2019 11:46:58 02/26/20 19 IUD Insertion (Mirena) completed Cammie Victor, DO [address], [place], [address], [place] [facility] 02/25/2019 11:44:27 06/07/19 18 OB Ultrasound Summary completed Katlyn Courtney [place] - [facility] 06/06/2017 10:52:24 05/03/19 18 OB Ultrasound Summary completed Luigi Barros [place] - [facility] 05/03/2017 15:21:55 04/16/19 18 OB Ultrasound Summary completed Pinky Pyle [place] - [facility] 04/16/2017 12:45:40 04/11/19 18 OB Ultrasound Summary completed Luigi Barros [place] [facility] 04/11/2017 10:42:22 03/21/20 17 OB Ultrasound Summary completed Katlyn Courtney [place] [facility] 03/21/2017 08:48:15 03/07/20 17 OB Ultrasound Summary completed Katlyn Courtney [place] [facility] 03/07/2017 10:21:11 02/19/20 17 OB Ultrasound Summary completed Luigi Barros [place] [facility] 02/18/2017 11:51:35 01/31/20 17 OB Ultrasound Summary completed Pinky Pyle [place] [facility] 01/30/2017 10:13:44 01/22/20 17 OB Ultrasound Summary completed Pinky ATKINSON - [facility] 01/21/2017 10:14:07 01/12/20 17 OB Ultrasound Summary completed Pinky Pyle [place] [facility] 01/11/2017 10:36:16 08/11/19 17 Date of Last Pap Smear completed Ella Stears [place] - [facility] 08/15/2016 14:05:54 01/05/20 09 Cholecystectomy, laparoscopic completed Ella Stears [place] [facility] 08/08/2016 09:33:06 Nsl/sins ndsc frnt tiss rmvl completed Ella Stears [place] [facility] 08/08/2016 09:33:20 tonsilectomy/adenoi ds completed Ella Stears [place] [facility] 08/08/2016 09:33:29 Ankle arthroscopy/surgery completed Ella Stears [place] [facility] 08/10/2016 10:45:18 Knee arthroscopy/surgery completed Ella Stears [place] [facility] 08/10/2016 10:45:29 gastric sleeve completed Ella Stears [place] [facility] 08/10/2016 10:45:55 Imaging Results None recorded. Procedure Notes None recorded. Medical Equipment None Reported. Allergies Allergen ID Allergen Name Allergen Category Reaction Reaction Severity Criticality Documentation Date Start Date Code Code System Note Provider Name and Address Organization Details Recorded Time [id number] honey bee venom medicatio n Not available Not available Not available 12/26/2018 45015 7 RxNorm Salena Moreno RN [address], [place], [address], [place] - [facility] 9 15:13:57 [id number] Augmentin medicatio n rash Not available Not available 12/26/2018 61085 2 RxNorm Salena Moreno RN [address], [place], [address], [place] - [facility] 9 15:14:01 [id number] Substance with sulfonami de structure and antibacte rial mechanism of action (substanc e) medicatio n hives Not available Not available 01/13/20162012 32375 8003 SNOMED React ion: swell ing/h michelle; Not Available [facility] 6 08:37:16 [id number] influenza virus vaccine, specific Not available rash moderate Not available 01/21/20172016 30164 UNK rash and SOB, went to ER Ceci Lowery, [employer] [address], [place], [address], [place] - [facility] 4 12:11:42 Medications Name Sig Start Date Stop Date Status Note LastModified by Organization Details LastModified Time Prescript ion - Renewal 08/19 completed [facility] Not Available Not Available Not Available prescript ion/drug reporting * 01/30 completed Not Available Not Available Not Available Prescript ion - Clarifica tion 08/19 completed [facility] Not Available Not Available Not Available Prescript ion - Prior Authoriza tion Request 08/19 completed [facility] Not Available Not Available Not Available cyclobenz aprine 10 mg tablet TAKE 1 TABLET BY MOUTH TWICE DAILY active Not Available Not Available No t Available amoxicill in 500 mg capsule 03/18 completed Not Available Not Available Not Available Mirena 21 mcg/24 hr (up to 8 years) 52 mg intrauter ine device Take 1 device by intraute rine route. 2018 active Not Available Not Available Not Avai lable methocarb pedro 500 mg tablet TAKE ONE (1) TO TWO (2) TABLETS BY MOUTH THREE (3) TIMES DAILY NEEDED (MAY BE SEDATING ) active Not Available Not Available No t Available metformin 500 mg tablet Take 0.5 tablets every day by oral route for 30 days. 08/13 completed Not Available Not Available Not Available potassium chloride ER 10 mEq capsule,e xtended release TAKE ONE (1) CAPSULE EVERY DAY BY ORAL ROUTE IN THE MORNING 02/19 completed Not Available Not Available Not Available Aviane 0.1 mg-20 mcg tablet take 1 tablet by oral route once daily for 28 days 08/10 completed Not Available Not Available Not Available prednison e 10 mg tablet 03/18 completed Not Available Not Available Not Available gabapenti n 600 mg tablet 11/28 completed Not Available Not Available Not Available cefuroxim e axetil 250 mg tablet Take 1 tablet every 12 hours by oral route for 10 days. 06/04 completed Not Available Not Available Not Available Depo-Medr ol 40 mg/mL suspensio n for injection Take 40 mg by injectio n route. 12/11 completed Not Available Not Available Not Available torsemide 20 mg tablet TAKE ONE (1) TABLET EVERY DAY BY ORAL ROUTE IN THE MORNING FOR 30 DAYS, FOR SWELLING . 02/19 completed Not Available Not Available Not Available nabumeton e 750 mg tablet TAKE ONE (1) TABLET BY MOUTH TWO (2) TIMES DAILY. 08/13 completed Not Available Not Available Not Available clindamyc in HCl 300 mg capsule 08/10 completed Not Available Not Available Not Available albuterol sulfate 2.5 mg/3 mL (0.083 %) solution for nebulizat ion 11/28 completed Not Available Not Available Not Available trazodone 50 mg tablet take 1 tablet by oral route once a day (at bedtime) 08/10 completed trazodon e 50 mg oral tablet;R ecorded Status: Recorded on: 11/05/19 13 3:08PM;U ser: [email or web address]; Indicati on: Major Depressi ve Disorder - (9232 00) Not Available Not Available Not Available cetirizin e 10 mg tablet TAKE ONE (1) TABLET EVERY DAY BY ORAL ROUTE FOR 90 DAYS. 02/19 completed Not Available Not Available Not Available azithromy jayla 250 mg tablet TAKE TWO (2) TABLETS (500 MG) BY ORAL ROUTE ONCE DAILY FOR ONE (1) DAY THEN ONE (1) TABLET (250 MG) BY ORAL ROUTE ONCE DAILY FOR FOUR (4) DAYS 06/30 completed Not Available Not Available Not Available ibuprofen 800 mg tablet take 1 tablet by oral route every 6 to 8 hours prn pain 08/10 completed ibuprofe n 800 mg oral tablet;R ecorded Status: Recorded on: 11/05/19 13 3:08PM;U ser: [email or web address]; Indicati on: Pain - (16.0591 00) Not Available Not Available Not Available tizanidin e 4 mg tablet TAKE ONE (1) TABLET BY MOUTH NIGHTLY NEEDED. 05/27 completed Not Available Not Available Not Available fluconazo le 150 mg tablet Take one tablet by mouth, may repeat in 3 days if needed 06/10 completed Not Available Not Available Not Available Fiorinal 50 mg-325 mg-40 mg capsule Take 1 capsule every 4 hours by oral route. 08/29 completed Not Available Not Available Not Available clomiphen e citrate 50 mg tablet Take 2 tablets each day by oral route on cycle days 5-9 11/28 completed Not Available Not Available Not Available hydrocodo ne 5 mg-acetam inophen 325 mg tablet TAKE1 TABLET BY MOUTH EVERY SIX (6) HOURS NEEDED FOR POSTOP PAIN active Not Available Not Available No t Available Celestone Soluspan 6 mg/mL suspensio n for injection Take 6 mg by injectio n route. 05/01 completed Not Available Not Available Not Available meloxicam 15 mg tablet TAKE 1 TABLET BY MOUTH EVERY DAY active Not Available Not Available No t Available promethaz ine 12.5 mg tablet Take 1 tablet as needed by oral route as directed . 11/28 completed Not Available Not Available Not Available ondansetr on HCl 4 mg tablet 08/10 completed Not Available Not Available Not Available prednison e 20 mg tablet TAKE ONE (1) TABLET EVERY DAY BY ORAL ROUTE FOR FIVE (5) DAYS. 08/04 completed Not Available Not Available Not Available Prilosec 20 mg capsule,d elayed release take 1 capsule (20 mg) by oral route once daily before a meal 08/10 completed Prilosec 20 mg oral capsule, delayed release( DR/EC);R ecorded Status: Recorded on: 11/05/19 13 3:08PM;U ser: [email or web address]; Indicati on: Heartbur n - (16.7871 00) Not Available Not Available Not Available Pyridium 200 mg tablet Take 1 tablet 3 times a day by oral route for 2 days. 12/26 completed Not Available Not Available Not Available clobetaso l 0.05 % topical cream APPLY A THIN LAYER TO THE AFFECTED AREA(S) BY TOPICAL ROUTE TWO (2) TIMES PER DAY 09/23 completed Not Available Not Available Not Available metronida zole 500 mg tablet Take 1 tablet twice a day by oral route with meals for 7 days. 12/27 completed Not Available Not Available Not Available phentermi ne 37.5 mg tablet TAKE ONE (1) TABLET EVERY DAY BY ORAL ROUTE FOR 30 DAYS. 04/25 completed Not Available Not Available Not Available acetamino phen 300 mg-codein e 30 mg tablet 11/28 completed Not Available Not Available Not Available doxepin 10 mg capsule TAKE ONE (1) CAPSULE EVERY DAY BY ORAL ROUTE NEEDED, FOR INSOMNIA . 02/19 completed Not Available Not Available Not Available ciproflox acin 500 mg tablet Take 1 tablet every 12 hours by oral route for 7 days. 06/10 completed Not Available Not Available Not Available hydrocodo ne 10 mg-acetam inophen 325 mg tablet TAKE ONE (1) TABLET FOUR (4) TIMES A DAY BY ORAL ROUTE FOR 30 DAYS. 03/25 completed Not Available Not Available Not Available omeprazol e 40 mg capsule,d elayed release TAKE ONE (1) CAPSULE EVERY DAY BY ORAL ROUTE FOR 90 DAYS. active Not Available Not Available No t Available tramadol 50 mg tablet 08/21 completed Not Available Not Available Not Available ondansetr on 8 mg disintegr ating tablet PLACE ONE (1) TABLET TWICE A DAY BY TRANSLIN GUAL ROUTE NEEDED FOR 10 DAYS, FOR NAUSEA. active Not Available Not Available No t Available Depo-Medr ol 80 mg/mL suspensio n for injection Take 80 mg by injectio n route. 02/19 completed Not Available Not Available Not Available ketorolac 10 mg tablet TAKE ONE (1) TABLET BY MOUTH EVERY 8 HOURS WITH MEALS NEEDED FOR PAIN 08/13 completed Not Available Not Available Not Available Vitamin tablet Take 1 tablet every day by oral route as directed for 30 days. 04/11 completed Not Available Not Available Not Available pramipexo le 0.5 mg tablet Take 1 tablet every day by oral route at bedtime for 30 days. 08/29 completed Not Available Not Available Not Available Celebrex 200 mg capsule Take 1 capsule every day by oral route. 12/26 completed Not Available Not Available Not Available ceftriaxo ne 1 gram solution for injection Take 1 g by injectio n route. 09/29 completed Not Available Not Available Not Available lorazepam 0.5 mg tablet TAKE ONE (1) TABLET EVERY DAY BY ORAL ROUTE AT BEDTIME FOR 30 DAYS. 02/19 completed Not Available Not Available Not Available temazepam 15 mg capsule 11/28 completed Not Available Not Available Not Available Lipitor 40 mg tablet take 1 tablet (40 mg) by oral route once daily 08/10 completed Lipitor 40 mg oral tablet;R ecorded Status: Recorded on: 11/05/19 13 3:08PM;U ser: [email or web address] Donovan on: Hypertri glycerid emia - () Not Available Not Available Not Available dicyclomi ne 20 mg tablet TAKE ONE (1) TABLET FOUR (4) TIMES A DAY BY ORAL ROUTE NEEDED FOR FIVE (5) DAYS. 03/25 completed Not Available Not Available Not Available benzonata te 100 mg capsule TAKE ONE (1) CAPSULE THREE (3) TIMES A DAY BY ORAL ROUTE FOR 10 DAYS. 11/06 completed Not Available Not Available Not Available hydrocodo ne 7.5 mg-acetam inophen 325 mg tablet 1/2 to 1 every 12-24 hours prn 12/26 completed Not Available Not Available Not Available cephalexi n 500 mg capsule 12/26 completed Not Available Not Available Not Available pantopraz ole 40 mg tablet,de layed release Take 1 tablet every day by oral route for 30 days. 09/25 completed Not Available Not Available Not Available oseltamiv ir 75 mg capsule Take 1 capsule twice a day by oral route for 5 days. 05/01 completed Not Available Not Available Not Available Prozac 20 mg capsule take 1 capsule (20 mg) by oral route once daily in the morning 12/31 completed Prozac 20 mg oral capsule; comment: didn't feel like she needed it anymore; Recorded Status: Recorded on: 11/05/19 13 3:08PM;D iscontin ued Status: Disconti nued on: 01/01/20 13 10:16AM; User: [email or web address] Andradeti on: Major Depressi ve Disorder - () Not Available Not Available Not Available esomepraz ole magnesium 40 mg capsule,d elayed release 08/29 completed Not Available Not Available Not Available triamcino lone acetonide 0.1 % topical ointment 03/18 completed Not Available Not Available Not Available ranitidin e 150 mg tablet Take 1 tablet twice a day by oral route before meals for 30 days. 12/06 completed Not Available Not Available Not Available buspirone 10 mg tablet TAKE ONE TABLET TWICE DAILY BY ORAL ROUTE NEEDED FOR ANXIETY 05/27 completed Not Available Not Available Not Available clotrimaz ole-betam ethasone 1 %-0.05 % topical cream APPLY TO THE AFFECTED AND SURROUND ING AREAS OF SKIN BY TOPICAL ROUTE 2 TIMES PER DAY IN THE MORNING AND EVENING FOR 2 WEEKS active Not Available Not Available No t Available lansopraz ole 30 mg capsule,d elayed release TAKE ONE (1) CAPSULE EVERY DAY BY ORAL ROUTE FOR 90 DAYS. 02/19 completed Not Available Not Available Not Available lidocaine 5 % topical patch APPLY ONE (1) PATCH BY TOPICAL ROUTE ONCE DAILY (MAY WEAR UP TO 12 HOURS) active Not Available Not Available No t Available promethaz ine 25 mg tablet TAKE ONE TABLET DAILY NEEDED FOR A MIGRAINE 02/19 completed Not Available Not Available Not Available progester one micronize d 200 mg capsule Take 1 capsule every day by oral route at bedtime for 30 days. 03/18 completed Not Available Not Available Not Available nitroglyc holly 0.4 mg sublingua l tablet PLACE ONE TABLET SUBLINGU ALLY EVERY FIVE (5) MINUTES NEEDED FOR CHEST PAIN FOR THREE DOSES. 09/23 completed Not Available Not Available Not Available gabapenti n 300 mg capsule TAKE ONE (1) CAPSULE BY MOUTH NIGHTLY. 05/27 completed Not Available Not Available Not Available diclofena c sodium 75 mg tablet,de layed release TAKE ONE (1) TABLET BY MOUTH TWO (2) TIMES DAILY. 05/27 completed Not Available Not Available Not Available hydrocodo ne 5 mg-acetam inophen 500 mg tablet take 1 tablet by oral route every 6 hours as needed for pain 08/10 completed hydrocod one-acet aminophe n 5-500 mg oral tablet;R ecorded Status: Recorded on: 11/05/19 13 3:08PM;U ser: [email or web address]; Indicati on: Pain - (16.1019 00) Not Available Not Available Not Available furosemid e 20 mg tablet TAKE ONE (1) TABLET EVERY DAY BY ORAL ROUTE IN THE MORNING FOR 30 DAYS. 09/23 completed Not Available Not Available Not Available gabapenti n 100 mg capsule TAKE TWO (2) TABLETS EVERY NIGHT AT BEDTIME 03/25 completed Not Available Not Available Not Available metoprolo l succinate ER 25 mg tablet,ex tended release 24 hr TAKE ONE (1) TABLET EVERY DAY BY ORAL ROUTE FOR 30 DAYS. active Not Available Not Available No t Available ergocalci ferol (vitamin D2) 1,250 mcg (50,000 unit) capsule TAKE ONE (1) CAPSULE EVERY WEEK BY ORAL ROUTE DIRECTED FOR 28 DAYS. 02/19 completed Not Available Not Available Not Available dexametha sone sodium phosphate 4 mg/mL injection solution Inject 8 mg by intramus cular route. 06/30 completed Not Available Not Available Not Available diazepam 10 mg tablet TAKE ONE (1) TAB BY MOUTH 30 MINUTES PRIOR TO INJECTIO N. MUST HAVE A MANAGER INTERMEDIATE 12/17 completed Not Available Not Available Not Available Cheratuss in AC 10 mg-100 mg/5 mL oral liquid 08/10 completed Not Available Not Available Not Available epinephri ne 0.3 mg/0.3 mL injection , auto-inje ctor USE DIRECTED active Not Available Not Available No t Available simethico ne 166 mg capsule Take 1 capsule 3 times a day by oral route as needed for 20 days. 02/18 completed Not Available Not Available Not Available ibuprofen 600 mg tablet TK 1 T PO Q 6 H UTD 09/25 completed Not Available Not Available Not Available polyethyl sana glycol 3350 17 gram/dose oral powder 08/10 completed Not Available Not Available Not Available oxycodone -acetamin ophen 7.5 mg-325 mg tablet 12/26 completed Not Available Not Available Not Available methylpre dnisolone 4 mg tablets in a dose pack TAKE DIRECTED FOR 6 DAYS 09/23 completed Not Available Not Available Not Available ketorolac 60 mg/2 mL intramusc ular solution 60 mg IM x1 09/15 completed Not Available Not Available Not Available ketoconaz ole 2 % topical cream APPLY TO THE AFFECTED AREA(S) BY TOPICAL ROUTE ONCE DAILY 09/23 completed Not Available Not Available Not Available ondansetr on 4 mg disintegr ating tablet DISSOLVE ONE (1) TABLET IN MOUTH EVERY SIX (6) HOURS NEEDED FOR NAUSEA AND VOMITING active Not Available Not Available No t Available cefdinir 300 mg capsule 08/10 completed Not Available Not Available Not Available dexametha sone sodium phosphate 10 mg/mL injection solution Take 10 mg by injectio n route. 09/15 completed Not Available Not Available Not Available fluticaso ne propionat e 50 mcg/actua tion nasal spray,alejandra pension SPRAY ONE (1) SPRAY EVERY DAY BY INTRANAS AL ROUTE. 12/17 completed Not Available Not Available Not Available loratadin e 10 mg tablet one tab po qd 04/25 completed Not Available Not Available Not Available naproxen 500 mg tablet 11/28 completed Not Available Not Available Not Available diazepam 5 mg tablet 12/26 completed Not Available Not Available Not Available Ventolin HFA 90 mcg/actua tion aerosol inhaler 11/28 completed Not Available Not Available Not Available oxycodone 5 mg tablet TAKE ONE TABLET BY MOUTH 1-3 times EVERY DAY as needed FOR pain post surgery. 08/29 completed Not Available Not Available Not Available Benadryl 25 mg capsule Take 1 capsule every day by oral route at bedtime. 06/21 completed Not Available Not Available Not Available escitalop ilana 10 mg tablet Take 1 tablet twice a day by oral route for 30 days. 06/04 completed Not Available Not Available Not Available Sprintec (28) 0.25 mg-0.035 mg tablet Take 1 tablet every day by oral route. 04/21 completed Not Available Not Available Not Available cyclobenz aprine 5 mg tablet TAKE ONE (1) TABLET THREE (3) TIMES A DAY BY ORAL ROUTE. active Not Available Not Available No t Available iron 325 mg (65 mg iron) tablet Take 1 tablet twice a day by oral route. 11/28 completed Not Available Not Available Not Available escitalop ilana 5 mg tablet Take 1 tablet every day by oral route for 30 days. 01/16 completed Not Available Not Available Not Available nitrofura ntoin monohydra te/macroc rystals 100 mg capsule Take 1 capsule every 12 hours by oral route for 7 days. 01/16 completed Not Available Not Available Not Available duloxetin e 20 mg capsule,d elayed release Take 1 capsule twice a day by oral route for 30 days. 12/17 completed Not Available Not Available Not Available pregabali n 75 mg capsule Take 1 capsule twice a day by oral route for 30 days. 09/23 completed Not Available Not Available Not Available Vandazole 0.75 % (37.5 mg/5 gram) vaginal gel INSERT ONE (1) APPLICAT ORFUL EVERY DAY BY VAGINAL ROUTE AT BEDTIME FOR FIVE (5) DAYS. 11/06 completed Not Available Not Available Not Available chlorhexi dine gluconate 0.12 % mouthwash SWISH WITH 15 ML FOR 30 SECONDS Q 12 H 01/05 completed Not Available Not Available Not Available calcium 11/28 completed Not Available Not Available Not Available dexametha sone sodium phosphate (PF) 10 mg/mL injection solution Take 10 mg by injectio n route. 01/22 completed Not Available Not Available Not Available Mucinex 1,200 mg tablet, extended release TAKE ONE (1) TABLET EVERY 12 HOURS BY ORAL ROUTE NEEDED. 11/06 completed Not Available Not Available Not Available diclofena c 1 % topical gel APPLY TWO (2) GRAMS TO THE AFFECTED AREA(S) BY TOPICAL ROUTE FOUR (4) TIMES PER DAY active Not Available Not Available No t Available Feraheme 510 mg/17 mL (30 mg/mL) intraveno us solution infuse 510mg intraven ously in 2 doses infused 3-7 days apart 06/20 completed Not Available Not Available Not Available B12 11/28 completed Not Available Not Available Not Available Dexilant 60 mg capsule, delayed release 02/18 completed Not Available Not Available Not Available butalbita l-acetami nophen-ca ffeine 50 mg-300 mg-40 mg capsule TAKE ONE (1) CAPSULE EVERY FOUR (4) HOURS BY ORAL ROUTE NEEDED FOR TWO (2) DAYS. 01/05 completed Not Available Not Available Not Available Vol-Tab Rx 29 mg iron-1 mg tablet 04/18 completed Not Available Not Available Not Available Plus (calcium carbonate ) 27 mg iron-1 mg tablet Take 1 tablet every day by oral route as directed for 90 days. 11/06 completed Not Available Not Available Not Available Isauro 250 mg/mL intramusc ular oil Inject 1 mL every week by intramus cular route. 06/21 completed Not Available Not Available Not Available 28 mg iron-800 mcg tablet Take 1 tablet by oral route. 12/06 completed Not Available Not Available Not Available Multi Vitamin 11/28 completed Not Available Not Available Not Available Diclegis 10 mg-10 mg tablet,de layed release Take 2 tablets every day by [...] completed Not Available Not Available Not Available Pownal 250 mg/mL (1 mL) intramusc ular oil Inject 250 mg every week by intramus cular route as directed . 06/21 completed Not Available Not Available Not Available Robitussi n Cough-Francia st Congestio n DM 5 mg-50 mg/5 mL oral liquid Take 5 mL every 6 hours by oral route as needed. 09/25 completed Not Available Not Available Not Available Nurtec ODT 75 mg disintegr ating tablet 05/01 completed Not Available Not Available Not Available Vitals Date Recorded Body height Heart rate Oxygen saturation Oxygen saturation in Arterial blood by Pulse oximetry Respiratory rate Systolic And Diastolic Provider Name and Address Organization Details Last Updated DateTime 5 170.18 cm 80 /min 99 % 99 % 18 /min 124/80 mm[Hg] Salena Stinsonrod [place] - [facility] 5 09:48:27 Date Recorded Body height Heart rate Oxygen saturation Oxygen saturation in Arterial blood by Pulse oximetry Respiratory rate Systolic And Diastolic Provider Name and Address Organization Details Last Updated DateTime 5 170.18 cm 76 /min 98 % 98 % 18 /min 132/84 mm[Hg] Salena Stout [place] - [facility] 5 08:29:55 Date Recorded Body height Heart rate Oxygen saturation Oxygen saturation in Arterial blood by Pulse oximetry Systolic And Diastolic Provider Name and Address Organization Details Last Updated DateTime 5 170.18 cm 80 /min 98 % 98 % 132/84 mm[Hg] Katlyn Thornton [place] - [facility] 5 16:15:26 Date Recorded Body height Body mass index (BMI) Body weight Body temperature Heart rate Oxygen saturation Oxygen saturation in Arterial blood by Pulse oximetry Respiratory rate Systolic And Diastolic Provider Name and Address Organization Details Last Updated DateTime 4 170.18 cm 43.5 kg/m2 103730. 89 g 97.8 [degF] 94 /min 98 % 98 % 16 /min 110/72 mm[Hg] Jia Doty [place] - [facility] 4 13:59:58 Date Recorded Systolic And Diastolic Provider Name and Address Organization Details Last Updated DateTime 02/20/2024 138/0.86 mm[Hg] Ceci Lowery , [employer] [address], [place], [address], [facility] 02/20/2024 12:43:14 Date Recorded Body height Body mass index (BMI) Body weight Heart rate Oxygen saturation Oxygen saturation in Arterial blood by Pulse oximetry Respiratory rate Systolic And Diastolic Provider Name and Address Organization Details Last Updated DateTime 4 170.18 cm 43.4 kg/m2 089052. 09 g 87 /min 98 % 98 % 18 /min 142/98 mm[Hg] Salena Stout [place] - [facility] 4 11:32:08 Social History Question Answer Notes LastModified by Organizat ion Details LastModified Time Tobacco Smoking Status Never Smoker Ella damon [place] - [facility] 08/10/2016 10:43:38 Do You Have An Advance Directive? No Information not available 08/10/2016 If You Are , What Was Your Level Of Alcohol Consumption Prior To ? Occasional [email or web address] Information not available 11/28/2016 Is Anesthesia Consult Planned? Yes Information not available 11/28/2016 Plan No [email or web address] Information no t available 11/28/2016 Are You Blind Or Do You Have Difficulty Seeing? No Information not available 08/10/2016 Is Blood Transfusion Acceptable In An Emergency? Yes Information not available 08/10/2016 Breast Feeding? Yes [email or web address] Informati on not available 11/28/2016 What Is Your Level Of Caffeine Consumption? Moderate Information not available 08/10/2016 Live With Cats/exposure To Cat Litter Yes Cat Outside Information not available 11/30/2016 How Much Tobacco Do You Chew? None Information not available 08/10/2016 Are You Deaf Or Do You Have Serious Difficulty Hearing? No Information not available 08/10/2016 Diabetes No [email or web address] Information no t available 11/28/2016 What Type Of Diet Are You Following? REGULAR Information not available 08/10/2016 Which Illicit Or Recreational Drugs Have You Used? None [email or web address] Information not available 11/28/2016 Education 12 [email or web address] Information no t available 11/28/2016 Have There Been Any Changes To Your Family Or Social Situation? No [email or web address] Information not available 11/28/2016 Frequent Air Travel No [email or web address] Information not available 11/28/2016 High Blood Pressure No [email or web address] Information not available 11/28/2016 High Cholesterol No [email or web address] Informat ion not available 11/28/2016 High Number Of Sexual Partners No [email or web address] Information not available 11/28/2016 Illicit Drugs Pre- None Information not available 11/28/2016 Live Alone Or With Others? With Others Information not available 08/10/2016 Last Menstrual Period? 09/29/2016 Information not available 11/30/2016 Marital Status [email or web address] Informatio n not available 11/28/2016 What Was The Date Of Your Most Recent Tobacco Screening? 06/30/2024 Information not available 06/30/2024 How Many Children Do You Have? 1 Information not available 08/10/2016 Are There Any Occupational Health Risks Where You Work? No Information not available 11/30/2016 Performs Monthly Self-breast Exam? Yes Information not available 08/10/2016 Do You Have Any Pets? Yes Dogs And Cats [email or web address] Information not available 11/28/2016 Do You Use Protection During Sex? Always Information not available 08/10/2016 What Is Your Relationship Status? [email or web address] Information not available 11/28/2016 Seat Belts Used Routinely Yes Information not available 08/10/2016 Are You Sexually Active? Yes Information not available 08/10/2016 Do You Have Smoke And Carbon Monoxide Detectors In Your Home? No [email or web address] Information not available 11/28/2016 Are You Passively Exposed To Smoke? No [email or web address] Information not available 11/28/2016 How Much Tobacco Do You Smoke? No [email or web address] Information not available 11/28/2016 Smoking Pre- No [email or web address] Information not available 11/28/2016 General Stress Level Low Information not available 08/10/2016 Do You Use Sunscreen Routinely? Yes Information not available 08/10/2016 Supplements Vitamins Information not available 11/30/2016 Has Tobacco Cessation Counseling Been Provided? Yes Information not available 12/14/2021 On What Date Was Tobacco Cessation Counseling Provided? 06/30/2024 Information not available 06/30/2024 Do You Have Difficulty Walking Or Climbing Stairs? No Information not available 08/10/2016 Do You Have Symptoms Associated With Zika Virus (fever, Rash, Joint Pain, Or Conjunctivitis)? No [email or web address] Information not available 11/28/2016 Have You Recently (within The Last 12 Weeks, Or During A Current ) Traveled To Or Lived In A Zika-affected Area? No [email or web address] Information not available 11/28/2016 Sex: Female Functional Status Question Answer Note LastModified by Organizat ion Details LastModified Time Do you use any illicit or recreational drugs? No Information not available 06/20/2021 Do you or have you ever used any other forms of tobacco or nicotine? No Information not available 06/20/2021 What is your level of alcohol consumption? Occasional Information not available 08/10/2016 Are you currently employed? Yes Information not available 08/10/2016 Are you able to walk? YESWOREST [email or web address] Information not available 11/28/2016 Do you have difficulty doing errands alone? No Information not available 08/10/2016 What is your occupation? [employer]. Information not available 08/10/2016 Do you have difficulty dressing or bathing? No Information not available 08/10/2016 Do you or have you ever used e-cigarettes or vape? Never used electronic cigarettes Information not available 08/29/2020 What is your exercise level? Moderate Information not available 08/10/2016 Mental Status Question Answer Note LastModified by Organization D etails LastModified Time Do you have difficulty concentrating, remembering or making decisions? No Information no t available 08/10/2016 Family History Relationship Description Onset Age of this Age Resolved Age Notes LastModified by Organization Details LastModified Time Maternal Grandmother Neoplasm of breast [email or web address] Not available 2016 09:31:19 Maternal Grandmother Neoplasm of lung [email or web address] Not available 2016 09:32:28 Mother Type 2 diabetes mellitus [email or web address] Not available 2016 09:31:46 Mother Hypertensive disorder [email or web address] Not available 2016 09:32:00 Mother Kidney disease [email or web address] Not available 2016 09:32:17 Brother Congenital heart disease at 2 months old due to conges tive heart failur e bstears Not available 11/30/2016 15:21:20 Brother Congenital renal failure at 1 month old due to kidney failur e bstears Not available 11/30/2016 15:22:00 Medical History Condition Response Pancreatitis N Other N Atrial Fibrillation N congenital heart disease N Blood Diseases N Hyperthyroidism N Blood Transfusion N Rheumatoid arthritis N Erectile Dysfunction N amputation N Skin Lesions N Depression N Pneumonia N Incontinence N Murmur N Edema N Alzheimer's Disease N Migraine Headaches N Tobacco Abuse N Anxiety Disorder Y Hemorrhoids N Obesity N Vision or Eye Problems N Arthritis N Restless Leg Syndrome N Polyps N Infertility N Carpal Tunnel N Acid Reflux (GERD) N Cancer N Varicosities N Stroke N Tendonitis N Crohn's Disease N Hypercholesterolemia N Skin Cancer N Headaches N Fibromyalgia N Irritable Bowel Syndrome N Anal Fissure N Kidney Disease N Heart Problems N Hospitalizations Y Gallstones N Kidney or Bladder Problems N Goiter N Acne N Eating Disorder N Luis's Esophagus N Hypertriglyceridemia N Constipation N Embolism N Vitamin B12 Deficiency N Deviated Septum N AIDS/HIV N Myocardial Infarction N Asthma N Mitral Valve Disorders N Vertigo N Hepatitis N Thyroid Cancer N Neuropathy N History of DVT N Herniated Disc N Chicken Pox Y Von Willebrands Disease N Thrombophilias N Breast Cancer N Hernia N Plantar Fasciitis N Hypothyroidism N Lung Disease N Defects or Inherited Disease N Breast Problem N Ovarian Cyst N Anesthesia Complications N Testosterone Deficiency N Interstitial Cystitis N Congenital Anomalies N Hypoglycemia N Blood clot N Vitamin D Deficiency N Cellulitis N Endometriosis N Bladder or Kidney Problems N Fracture N Panic Disorder N Schizophrenia N Concussion N Spina Bifida N Osteoarthritis N Parkinson's Disease N Disc Protrusion N STI N Esophagitis N Angina N Thyroid Problems N GI Problems N ADD/ADHD N Anemia N Multiple Sclerosis N Abnormal PAP N Lumbago N Mental Illness N Psychiatric Illness N Diabetes N Ovarian Cancer N Degenerative Disc Disease N Seizures/Epilepsy N Hyperlipidemia N Syncope N Insomnia N Eczema N Abuse/Domestic Violence N Attention Deficient Disorder N Dementia N Ulcerative colitis N Cerebrovascular Disease N Depression N Guillain-[place] N Sleep Apnea N Aneurysm N Bronchitis N Heart Disease N Hypertension N Pre-Eclampsia N Suicidal Ideation N Osteoporosis N Gynecological History Statement/Question Response Abnormal Pap N Date of Last Mammogram Flow Moderate Date of LMP 05/31/2019 On BCP's at Conception? N STIs/STDs N HPV Vaccine N Duration of Flow (days) 7 Current Control Method IUD Age at First Child 15 Last Annual Exam/Provider 08-10-16 Date of Last Colonoscopy Frequency of Cycle (Q days) 28 Most Recent Bone Density Sexually Active? Y Menses Monthly N Date of Last Pap Smear 08/10/2016 Sexual Problems? N LMP Definite Desired Control Method Other Hormone Replacement Therapy N Obstetrics History GPAL:G 2 P 1 1 0 2 Type Value Full Term 1 Premature 1 Living 2 Total 2 Immunizations Vaccine Type Date Status Note Provider Nam e and Address Organization Details Recorded Time Influenza, split virus, quadrivalent, preservative 7 completed Not Available [facility] 04/25/2019 03:54:37 Tdap 8 completed Not Available [facility] 04/25/2019 03:54:53 influenza, unspecified formulation 6 completed Not Available [facility] 05/27/2023 15:19:29 Influenza, split virus, quadrivalent, preservative 9 completed Not Available [facility] 05/27/2023 15:19:29 COVID-19 vaccine, vector-nr, rS-Ad26, PF, 0.5 mL 2 completed Crystal Girish null, [place] - [facility] 03/29/2022 14:39:45 COVID-19, mRNA, LNP-S, bivalent, PF, 30 mcg/0.3 mL dose 3 completed Crystal Girish null, [place] - [facility] 01/23/2023 12:53:29 Past Encounters Encounter ID Performer Location Encounter Start Date Encounter Closed Date Diagnosis/Indication Diagnosis SNOMED-CT Code Diagnosis ICD10 Code Diagnosis Note [id number] DO Johan Mcgee [facility] [address] [place] [address] [place] Frazier [id number] 7 08/10/2016 10:01:14 08/10/2016 11:28:57 Routine gynecologic examination done 3752864654 9101 Z01.419 Depression screening 171 939228 Z13.89 Diet education 84530086 Z71.3 Counseling 870501560 Z71 .9 Exercise counsellin g. Patient encouraged to exercise 30 minutes 5 days a week. Examinatio n of blood pressure 099058707 Z01.30 Vaccine de clined by patient 6215994789 02 Z28.21 Body mass index 30+ - obesity 580524071 Z68.39 Screening for malignant neoplasm of cervix 653996414 Z12.4 Trying to conceive 62184 9001 Z31.9 [id number] BRAD Abad [facility] [address] [place] [address] [place] Frazier [id number] 7 11/28/2016 14:50:03 11/28/2016 15:29:55 Amenorrhea 24284090 N91.2 Nausea and vomiting 1693 2000 R11.2 Bacterial vaginosis 4197 55144 N76.0 Leukorrhea 118664192 N89 .8 [id number] MD Johan Gross [facility] [address] [place] [address] [place] Frazier [id number] 7 11/30/2016 14:29:51 11/30/2016 16:12:13 Normal 53024590 Z34.91 Gestation period, 8 weeks 42880843 Z3A.08 Routine an tenatal care 415566749 Z34.91 History of bariatric surgical procedure 576539208 Z98.84 [id number] BRAD Oh [employer] [address] [place] [address] [place] [id number] 7 12/27/2016 09:57:01 12/27/2016 14:28:36 screening 957488005 Z36 Routine an tenatal care 457522983 Z34.91 Morning sickness 8337593 6 O21.9 Venereal d isease screening 471724888 Z11.3 Maternal o besity complicating , childbirth and the puerperium, antepartum 4155328964 07 O99.211 High risk 4720 0007 O09.91 Cyst of left ovary 20543 83093 6863610 N83.202 Uterine leiomyoma 589664 05 D25.9 Gestation period, 12 weeks 83995599 Z3A.12 [id number] BRAD Abad [facility] [address] [place] [address] [place] Frazier [id number] 7 01/08/2017 14:32:26 01/08/2017 15:21:48 Obesity 851632434 E66.9 Gastroesop hageal reflux disease 888317554 K21.9 Pain in ro und ligament in 4020883211 6258883 O26.899 Gestation period, 14 weeks 18279850 Z3A.14 [id number] MD Johan Mckeon [employer] [address] [place] [address] [place] [id number] 7 01/11/2017 09:24:53 01/11/2017 12:13:38 Gestation period, 14 weeks 87062746 Z3A.14 High risk 4720 0007 O09.212 obesity , prior PTL/D; prior bariatric surgery, Influenza vaccine needed 2119583740 106 Z23 Past pregn sabina history of premature delivery 673976645 Z87.51 possible unknwnonw dates other than dubowitz as no PNC 16 y ago. plan for cx lenghth screening History of bariatric surgical procedure 288360509 Z98.84 Gastric sleeve Maternal o besity complicating , childbirth and the puerperium, antepartum 2358602256 07 O99.140 [id number] MD Johan Mckeon [employer] [employer] [address] [place] [address] [place] Fraz[place] [id number] 7 01/21/2017 09:02:00 01/21/2017 11:04:46 Past history of premature delivery 475083444 Z87.51 possible unknown dates other than dubowitz as no PNC 16cx lenght 2.6-2.8 @ 16 wk; rec start Isauro now and q 2 wk US , IF < 2.5 will consult [facility] re recs for vaginal PROG (pt prefers shot if ok) vs cerclage Maternal o besity complicating , childbirth and the puerperium, antepartum 2393020669 07 O99.212 History of sleeve gastrectomy 9255971610 19107 Z90.3 High risk 4720 0007 O09.212 obesity , prior PTL/D; prior bariatric surgery,- Gestation period, 16 weeks 73821041 Z3A.16 Vitamin D deficiency 347 22406 E55.9 screening 2437 64289 Z36.86 Z36.9 Dysuria 38326698 R30.0 [id number] MD Johan Mckeon [facility] [address] [place] [address] [place] Frazier [id number] 7 01/30/2017 10:01:15 01/30/2017 12:23:11 Gestation period, 17 weeks 14955157 Z3A.17 Past pregn sabina history of premature delivery 815549462 Z87.51 possible unknown dates other than dubowitz as no PNC 16cx lenght 2.6-2.8 @ 16 wk; better today at > 4 cm. ; rec start [place] as soon as available .PA still pending from 2 wk ago. and q 2 wk US , IF < 2.5 will consult [facility] re recs for vaginal PROG (pt prefers shot if ok) vs cerclage; P[place] not available yet; fu 2 wk History of sleeve gastrectomy 9848558224 Z90.3 Maternal o besity complicating , childbirth and the puerperium, antepartum 4941875724 07 O99.212 High risk 4720 0007 O09.212 obesity , prior PTL/D; prior bariatric surgery,- [id number] MD Yennifer [place] [facility] [address] [place] [address] [place] [id number] 7 02/18/2017 11:01:46 02/18/2017 12:23:31 Past history of premature delivery 262678308 Z87.51 Maternal o besity complicating , childbirth and the puerperium, antepartum 8674488528 07 O99.212 History of sleeve gastrectomy 7702576354 02129 Z90.3 Vitamin D deficiency 347 62727 E55.9 History of bariatric surgical procedure 094513391 Z98.84 Normal 0991169 2 Z34.92 Gestation period, 20 weeks 36382337 Z3A.20 [id number] Wilfredo Saba MD [place] [id number] [place] Serna [id number] 4 02/27/2017 08:04:10 02/27/2017 09:53:14 Upper respiratory infection 11617336 J06.9 [id number] Jewell Ríos MD [place] [facility] [address] [place] [address] [place] Frazier [id number] 7 03/07/2017 10:02:02 03/07/2017 11:20:53 Past history of premature delivery 606301555 Z87.51 Maternal o besity complicating , childbirth and the puerperium, antepartum 3152969674 07 O99.212 History of sleeve gastrectomy 5675631469 95275 Z90.3 High risk 4720 0007 O09.92 Gestation period, 22 weeks 32184890 Z3A.22 [id number] Giovanna Orozco CNM [place] [facility] [address] [place] [address] [place] Frazier [id number] 7 03/14/2017 10:04:35 03/14/2017 10:38:12 screening 139452167 Z36.9 High risk due to history of labor 430598123 O09.219 Gestation period, 23 weeks 08085907 Z3A.23 Past pregn sabina history of premature delivery 388036653 Z87.51 High risk 4720 0007 O09.92 Maternal o besity complicating , childbirth and the puerperium, antepartum 5561005287 07 O99.738 [id number] BRAD Abad [facility] [employer] [address] [place] [address] [place] Frazier [id number] 7 03/18/2017 15:35:25 03/18/2017 16:54:39 Past history of premature delivery 115105737 Z87.51 Maternal o besity complicating , childbirth and the puerperium, antepartum 9211962368 07 O99.212 History of sleeve gastrectomy 4323979849 78667 Z90.3 Gestation period, 24 weeks 219257593 Z3A.24 Lower abdominal pain 545 76974 R10.30 Low back pain 774855041 M54.5 Leukorrhea 763763636 N89 .8 [id number] MD Johan Gross [employer] [employer] [address] [place] [address] [place] Frazier [id number] 7 03/21/2017 08:27:14 03/21/2017 09:52:04 High risk 65803930 O09.92 Past pregn sabina history of premature delivery 272894559 Z87.51 Maternal o besity complicating , childbirth and the puerperium, antepartum 1970706868 07 O99.212 History of sleeve gastrectomy 8080974396 20469 Z90.3 Gestation period, 24 weeks 469893727 Z3A.24 Pruritic disorder 356240 002 L29.9 Abnormal f etal heart rate 806208329 P29.89 [id number] MD Johan Gross [employer] [address] [place] [address] [place] Frazier [id number] 7 03/28/2017 14:18:41 03/28/2017 17:46:51 High risk 22854792 O09.92 Past pregn sabina history of premature delivery 142079453 Z87.51 Maternal o besity complicating , childbirth and the puerperium, antepartum 1198353280 07 O99.212 History of sleeve gastrectomy 2672883797 48155 Z90.3 Vitamin D deficiency 347 70849 E55.9 History of bariatric surgical procedure 006005500 Z98.84 [id number] MD Johan Gross [employer] [address] [place] [address] [place] Frazier [id number] 7 04/04/2017 11:20:10 04/04/2017 12:18:52 High risk 75101127 O09.92 Past pregn sabina history of premature delivery 665695233 Z87.51 Maternal o besity complicating , childbirth and the puerperium, antepartum 7707394158 07 O99.212 Vitamin D deficiency 347 41527 E55.9 History of sleeve gastrectomy 8235473702 93282 Z90.3 Gestation period, 26 weeks 74034703 Z3A.26 [id number] Narendra Neal MD [place] [facility] [address] [place] [address] [place] [id number] 7 04/11/2017 09:45:35 04/11/2017 11:41:17 Past history of premature delivery 957274071 Z87.51 Maternal o besity complicating , childbirth and the puerperium, antepartum 0467005091 07 O99.212 High risk 4720 0007 O09.92 Vitamin D deficiency 347 09130 E55.9 Gestation period, 27 weeks 01263272 Z3A.27 [id number] Jewell Ríos MD [place] [facility] [address] [place] [address] [place] [address] 7 04/16/2017 11:49:31 05/08/2017 11:07:31 Past history of premature delivery 911334592 Z87.51 Maternal o besity complicating , childbirth and the puerperium, antepartum 3383734295 07 O99.212 History of sleeve gastrectomy 5340305244 03269 Z90.3 Vitamin D deficiency 347 52297 E55.9 High risk 4720 0007 O09.92 Polycystic ovaries 11582 008 E28.2 Left lower quadrant pain 335516468 R10.32 Gestation period, 28 weeks 49792833 Z3A.28 [id number] Giovanna Orozco CNM [place] [facility] [address] [place] [address] [place] Frazier [id number] 7 04/18/2017 10:08:38 04/18/2017 10:41:23 screening 939058595 Z36.9 Maternal o besity complicating , childbirth and the puerperium, antepartum 5090264847 07 O99.212 High risk due to history of labor 491063375 O09.219 Lightheadedness 98635724 8 R42 History of sleeve gastrectomy 1609289806 93916 Z90.3 Vitamin D deficiency 347 89611 E55.9 High risk 4720 0007 O09.92 [id number] Narendra Neal MD [place] [facility] [place] [id number] 7 04/25/2017 11:15:15 04/25/2017 12:08:56 Past history of premature delivery 461807173 Z87.51 Maternal o besity complicating , childbirth and the puerperium, antepartum 3501575681 07 O99.212 High risk 4720 0007 O09.92 History of sleeve gastrectomy 5009603438 98042 Z90.3 Vitamin D deficiency 347 78445 E55.9 High risk due to history of labor 739684917 O09.219 Gestation period, 29 weeks 57759017 Z3A.29 screening 2437 60179 Z36.9 Administra tion of diphtheria, pertussis, and tetanus vaccine 967871793 Z23 [id number] Jewell Ríos MD [place] [facility] [address] [place] [address] [place] Frazier 79245-403 7 05/02/2017 10:45:54 05/02/2017 12:03:17 High risk 09087888 O09.92 Past pregn sabina history of premature delivery 836113473 Z87.51 Maternal o besity complicating , childbirth and the puerperium, antepartum 5071158839 07 O99.212 History of sleeve gastrectomy 3364487277 23059 Z90.3 Vitamin D deficiency 347 82653 E55.9 Gestation period, 30 weeks 58610277 Z3A.30 [id number] Giovanna Orozco CNM [place] [facility] [address] [place] [address] [place] Frazier 96226-674 7 05/03/2017 12:59:57 05/03/2017 15:36:04 screening 355907671 Z36.9 High risk due to history of labor 653027944 O09.219 Maternal o besity complicating , childbirth and the puerperium, antepartum 4729238493 07 O99.212 Reduced fe liane movement 134011691 O36.8130 hear t deceleration 988199404 O76 Past pregn sabina history of premature delivery 523190998 Z87.51 High risk 4720 0007 O09.92 [id number] Cammie Victor DO [place] [facility] [address] [place] [address] [place] [id number] 7 2017 11:07:02 2017 13:35:32 High risk 29244429 O09.93 Past pregn sabina history of premature delivery 567525114 Z87.51 Maternal o besity complicating , childbirth and the puerperium, antepartum 2369999922 07 O99.213 Gestation period, 31 weeks 11685767 Z3A.31 [id number] MD Soraya [place] [employer] [employer] [address] [place] [address] [place] 95524-598 7 05/16/2017 10:25:50 05/16/2017 11:13:40 High risk 32202010 O09.93 Past pregn sabina history of premature delivery 184880248 Z87.51 Maternal o besity complicating , childbirth and the puerperium, antepartum 1934941925 07 O99.212 History of sleeve gastrectomy 8122292607 19522 Z90.3 History of bariatric surgical procedure 640194354 Z98.84 Vitamin D deficiency 347 88547 E55.9 Gestation period, 32 weeks 5873223 Z3A.32 [id number] Jewell Ríos MD [place] [facility] [address] [place] [address] [place] Frazier 58860-752 7 05/23/2017 10:24:04 05/23/2017 10:57:31 High risk 62483652 O09.93 Past pregn sabina history of premature delivery 095063637 Z87.51 Maternal o besity complicating , childbirth and the puerperium, antepartum 8043237301 07 O99.212 History of sleeve gastrectomy 8767939853 24838 Z90.3 Vitamin D deficiency 347 70137 E55.9 History of bariatric surgical procedure 786921472 Z98.84 Gestation period, 33 weeks 17659829 Z3A.33 [id number] Giovanna Orozco CNM [place] [facility] [address] [place] [address] [place] Frazier [id number] 7 05/28/2017 14:00:37 05/28/2017 15:14:26 screening 383552173 Z36.9 Past pregn sabina history of premature delivery 581639208 Z87.51 Gestation period, 33 weeks 22974019 Z3A.33 History of sleeve gastrectomy 7434354879 41976 Z90.3 High risk 4720 0007 O09.92 [id number] Giovanna Orozco CNM [place] [facility] [address] [place] [address] [place] Frazier [id number] 7 05/30/2017 09:55:40 05/30/2017 10:31:15 screening 292872741 Z36.9 High risk due to history of labor 717478372 O09.219 Maternal o besity complicating , childbirth and the puerperium, antepartum 9669684091 07 O99.212 History of bariatric surgical procedure 534082262 Z98.84 Vitamin D deficiency 347 66777 E55.9 High risk 4720 0007 O09.92 Gestation period, 34 weeks 67459329 Z3A.34 [id number] MD Johan Gross [employer] [address] [place] [address] [place] Frazier [id number] 7 06/06/2017 09:52:40 06/06/2017 13:29:59 High risk 89450073 O09.93 Past pregn sabina history of premature delivery 264218525 Z87.51 Maternal o besity complicating , childbirth and the puerperium, antepartum 3359498777 07 O99.212 History of sleeve gastrectomy 6224057930 57208 Z90.3 Vitamin D deficiency 347 21583 E55.9 Anxiety 58369398 F41.9 Acid reflux 021551259 K2 1.9 Gestation period, 35 weeks 51495798 Z3A.35 screening 2437 47394 Z36.9 [id number] MD Johan Gross [employer] [address] [place] [address] [place] Frazier 28062-792 7 06/21/2017 14:10:32 06/21/2017 14:55:10 state 88640807 Z39.2 Depression screening 171 235308 Z13.89 Contracept ion care management 288929373 Z30.9 [id number] Wilfredo Saba MD [address] [place] [address] 08/20/2017 10:06:09 08/20/2017 11:37:40 Chronic back pain 980175624 M54.9 Sciatica 47689432 M54.32 [id number] Wilfredo Saba MD [address] [place] [address] 12/06/2017 10:17:47 12/06/2017 12:04:12 Sciatica 54646733 M54.32 Pain of joint 82814165 M 25.50 Acid reflux 945148855 K2 1.9 Renewal of prescription 911398950 Z76.0 Chronic low back pain 27 6989847 M54.5 [id number] Sarita France [address] [place] [address] 08/19/2018 09:32:44 08/19/2018 10:43:27 Urinary tract infectious disease 42518428 N39.0 [id number] Sarita France [address] [place] [address] 12/26/2018 14:39:07 12/26/2018 16:26:26 Abdominal pain 71099430 R10.9 History of sleeve gastrectomy 4443859340 55626 Z90.3 Allergic disposition 609 325156 T78.40XA Depressive disorder 3548 9007 F32.9 Anxiety disorder 06 F41.9 Polycystic ovaries 93190 008 E28.2 Acute urin aminata tract infection 120314345 N39.0 [id number] DO Johan Mcgee [facility] [place] [address] 7 12/29/2018 10:18:07 12/29/2018 12:16:02 Pain in pelvis 20194609 R10.2 Body mass index 40+ - severely obese 128999042 Z68.41 Polycystic ovaries 98503 008 E28.2 Anxiety disorder 06 F41.9 Vaginal discharge 047978 006 N89.8 [id number] Sarita France APRN [address] [place] [address] 01/16/2019 15:59:04 01/16/2019 16:59:01 Influenza-like illness 12196664 B34.9 Acid reflux 805909044 K2 1.9 Abdominal pain 66985592 R10.9 [id number] Faye Ng APRN [place] [employer] [address] [place] [address] [place] [address] 7 02/18/2019 10:20:34 02/18/2019 11:34:07 Pain in pelvis 59338780 R10.2 Anemia 058632475 D64.9 Menorrhagia 237643742 N9 2.0 [id number] Cammie Victor DO [place] [employer] [address] [place] [address] [place] Frazier [address] 7 02/25/2019 10:15:06 02/25/2019 11:47:19 Insertion of intrauterine contraceptive device 80753710 Z30.430 Body mass index 30+ - obesity 710821632 Z68.39 [id number] Sonu Broussard MD [address] [place] [address] 04/21/2019 11:26:34 04/21/2019 12:28:56 Posttraumatic headache 50725211 G44.309 Lower back injury 247092 005 S39.92XS Lumbar radiculopathy 128 120308 M54.16 Injury of upper extremity 704170743 S49.91XA [id number] Sonu Broussard MD [address] [place] [address] 04/28/2019 09:42:46 04/28/2019 10:43:18 Superficial thrombophlebitis 5928737 I80.9 [id number] Sonu Broussard MD [address] [place] [address] 05/19/2019 10:05:53 05/19/2019 12:04:05 Restless legs 89339296 G25.81 Temporoman dibular joint disorder 96326285 M26.609 Chronic sinusitis 852208 00 J32.9 Major depr essive disorder 773597398 F32.9 Posttrauma tic headache 92124808 G44.693 [id number] Mango Karimi MD [address] [place] [address] 06/04/2019 09:32:13 06/04/2019 12:51:23 Chronic sinusitis 55887769 J32.9 Body mass index 40+ - severely obese 859495205 Z68.41 Acute sinusitis 56901017 J01.90 Depressive disorder 3548 9007 F32.9 Anxiety 98060097 F41.9 Degenerati on of lumbar intervertebral disc 03966510 M51.36 Headache 29984403 R51 [id number] Fransisca Sapp[address] [place] [address] 03/14/2020 15:47:26 03/14/2020 16:33:50 Exposure to coronavirus infection 322333507 Z20.828 Viral screening 69249974 4 Z11.59 COVID-19 424122717 U07.1 [id number] Sarita France [address] [place], [place] [address] 08/29/2020 15:19:22 08/29/2020 17:22:52 Chronic sinusitis 02018271 J32.9 Anemia 149468462 D64.9 Gastroesop hageal reflux disease without esophagitis 450456347 K21.9 Seasonal a llergic rhinitis 314350428 J30.2 Obesity 577652305 E66.9 History of sleeve gastrectomy 1635293633 19107 Z90.3 Hepatitis C screening 41 9211235 Z11.59 [id number] Sarita France [address] [place] [address] 09/06/2020 11:57:54 09/06/2020 12:21:30 Serum iron below reference range 545102947 R79.0 History of sleeve gastrectomy 5940871474 19107 Z90.3 Prediabetes 575339113 R7 3.03 Body mass index 30+ - obesity 926465235 Z68.39 Finding of body mass index 187075087 E66.9 [id number] Sarita France [address] [place] [address] 10/11/2020 10:55:05 10/11/2020 11:49:01 Body mass index 30+ - obesity 094823920 Z68.39 Acid reflux 987490277 K2 1.9 Prediabetes 726521194 R7 3.03 Migraine 47166379 G43.90 9 Chronic sinusitis 132029 00 J32.9 Iron deficiency 06025053 E61.1 Candidiasis of vagina 72 679044 B37.3 [id number] Sarita France[address] [place] [address] 12/02/2020 13:58:54 12/02/2020 15:03:28 Major depressive disorder 217332440 F32.9 Body mass index 30+ - obesity 108206352 Z68.39 Finding of body mass index 776822152 E66.9 Bacterial vaginosis 4197 27526 N76.0 [id number] Sarita France[address] [place] [address] 01/02/2021 10:49:11 01/02/2021 12:32:54 Serum iron below reference range 706062663 R79.0 Vitamin D deficiency 347 14758 E55.9 Prediabetes 459127600 R7 3.03 Screening for cardiovascular system disease 560063458 Z13.6 Migraine 25724557 G43.90 9 Body mass index 30+ - obesity 163200734 Z68.39 Finding of body mass index 065440728 E66.9 [id number] Fransisca Sapp[address] [place] [address] 01/13/2021 13:36:49 01/13/2021 15:04:38 Cough 94786479 R05.9 [id number] Sarita France [address] [place] [address] 02/01/2021 10:56:12 02/01/2021 12:53:57 Body mass index 30+ - obesity 437706385 Z68.38 Pleurisy 308622923 R09.1 Atypical chest pain 1025 43340 R07.89 Finding of body mass index 171287123 E66.9 [id number] Sarita France[address] [place] [address] 03/01/2021 10:42:21 03/01/2021 11:42:05 Proteinuria 20030400 R80.9 Urinary tr act infectious disease 23572819 N39.0 Dysuria 90522806 R30.9 Pleuritic pain 8294150 R 07.81 Finding of body mass index 188117516 E66.9 Body mass index 30+ - obesity 419639245 Z68.38 Chronic low back pain 27 8367486 M54.50 [id number] Sarita France[address] [place] [address] 03/08/2021 16:32:36 03/23/2021 11:09:51 Pain of joint 30650323 M25.50 Low back pain 583521329 M54.50 chronic Chronic low back pain 27 2981315 M54.50 [id number] Sarita France[address] [place] [address] 4 03/24/2021 13:40:43 03/24/2021 14:48:20 Dysuria 86429066 R30.0 Chronic low back pain 27 7696534 M54.50 Body mass index 30+ - obesity 868033027 Z68.38 Urinary tr act infectious disease 61366018 N39.0 Long-term drug therapy 384713297 Z79.899 Allergic disposition 609 192744 T78.40XA Viral gastroenteritis 11 3153064 A08.4 Finding of body mass index 791636011 E66.9 [id number] Sarita France[address] [place] [address] 04/25/2021 14:21:19 04/25/2021 15:35:51 Body mass index 30+ - obesity 859775699 Z68.38 Chronic low back pain 27 2570348 M54.50 Long-term drug therapy 070889323 Z79.899 Acute bact erial sinusitis 88130112 J01.90 [id number] Sarita France[address] [place] [address] 05/24/2021 14:41:28 05/24/2021 17:54:09 Pain of right hip joint 7524856999 00919 M25.551 Pain of ri ght knee joint 2438804552 85611 M25.561 Chronic low back pain 27 5949973 M54.50 Long-term drug therapy 058724584 Z79.818 [id number] Sarita France[address] [place] [address] 06/20/2021 13:54:36 06/20/2021 15:20:48 Chronic low back pain 393985196 M54.50 Body mass index 30+ - obesity 671994040 Z68.38 Prediabetes 831576214 R7 3.03 Pain of ri ght knee joint 1995744531 82031 M25.561 Acute sinusitis 47045422 J01.90 Long-term drug therapy 671965032 Z79.328 [id number] Sarita France[address] [place] [address] 4 07/24/2021 13:05:13 07/24/2021 14:49:42 Chronic low back pain 697984926 M54.50 Vaginal di scharge problem 975019325 N89.9 Pain of joint 34107743 M 25.50 rihjt knee Long-term drug therapy 325056418 Z79.833 [id number] [place]ita [place] [address] [place] [address] 08/22/2021 13:24:56 08/22/2021 15:15:37 Foot pain 22639218 M79.671 Bilateral plantar fasciitis 7666016745 0826433 M72.2 Acid reflux 600987075 K2 1.9 controlled Chronic low back pain 27 1594264 M54.50 Calcaneal spur of left foot 1272026600 29833 M77.32 Calcaneal spur of right foot 3722507488 59712 M77.31 Osteoarthr itis of midfoot 345916995 M19.071 M19.072 bilateral [id number] Ceci Lowery[address] [place] [address] 09/25/2021 14:57:42 09/25/2021 16:09:04 Body mass index 30+ - obesity 290184664 Z68.39 Obesity 924092075 E66.3 Acid reflux 612030628 K2 1.9 Cough 54135358 R05.1 Acute sinusitis 34099391 J01.90 Pityriasis versicolor 56 774983 B36.0 Chronic low back pain 27 3170700 M54.50 [id number] Sarita France[address] [place] [address] 09/29/2021 13:32:47 09/29/2021 14:22:59 Iron deficiency 32767898 E61.1 Chronic low back pain 27 7086624 M54.50 Long-term drug therapy 663499853 Z79.899 Peroneus b rg tenosynovitis 473330547 M65.871 M65.522 [id number] Sarita France[address] [place] [address] 11/06/2021 09:52:02 11/06/2021 10:45:39 Chronic low back pain 366636205 M54.50 Vitamin D deficiency 347 80861 E55.9 Pain of ri ght hip joint 0567384961 20710 M25.551 Long-term drug therapy 236182758 Z79.899 Peroneus b rg tenosynovitis 590132435 M65.871 M65.872 Calcaneal spur of right foot 7584677357 41071 M77.31 Osteoarthr itis of midfoot 138952632 M19.071 M19.072 bilateral [id number] Ceci Lowery [address] [place] [address] 11/17/2021 15:03:34 11/17/2021 15:50:39 Strain of muscle of left shoulder 8103761981 9359552 S46.912A 3985342 Ceci Lowery [address] [place] [address] 12/14/2021 09:42:15 12/14/2021 10:39:16 Body mass index 30+ - obesity 801963572 Z68.38 Obesity 731147759 E66.3 Strain of muscle of left shoulder 5297427293 0640383 S46.912A [id number] Cecitheresa Lowery[address] [place] [address] 4 03/29/2022 14:31:54 03/29/2022 15:20:26 Viral screening 930954621 Z11.59 Influenza- like symptoms 220765510 R68.89 [id number] Sarita France[address] [place] [address] 05/01/2022 15:41:48 05/01/2022 17:12:51 Dysuria 60939670 R30.0 Acute bact erial sinusitis 36276073 J01.90 [id number] Sarita France [address] [place] [address] 08/21/2022 10:11:08 08/21/2022 11:27:36 Right side sciatica 3746713090 75409 M54.31 Trochanter ic bursitis of right hip 7349076414 33873 M70.61 [id number] Sarita France [address] [place] [address] 4 12/17/2022 11:10:08 12/17/2022 12:57:21 Seasonal allergic rhinitis 245476194 J30.2 Allergic disposition 609 714107 T78.40XA Vitamin D deficiency 347 32723 E55.9 Right side sciatica 3202 510837 04975 M54.31 Depressive disorder 3548 9007 F32.9 Anxiety 94709540 F41.9 [id number] Sarita France[address] [place] [address] 01/02/2023 08:51:30 01/02/2023 09:57:10 Right side sciatica 3557227854 72751 M54.31 Generalized vitiligo 403 805297 L80 Acute uppe r respiratory infection 51926585 J06.9 Dysuria 25056679 R30.0 Long-term drug therapy 031403123 Z79.899 Anxiety 24515552 F41.9 Chronic low back pain 27 4341384 M54.50 [id number] Ceci Lowery[address] [place] [address] 01/23/2023 12:42:14 01/23/2023 13:07:33 Body mass index 40+ - severely obese 470691356 Z68.41 Morbid obesity 102583426 E66.01 0675605 Sarita France[address] [place] [address] 03/25/2023 10:55:33 03/25/2023 12:01:22 Lumbago with sciatica 480160311 M54.40 Fall on or from stairs or steps 648232895 W10.9XXA home, 5 steps Blood in urine 44176061 R31.9 [id number] Sarita France[address] [place] [address] 03/27/2023 14:50:07 03/27/2023 16:18:41 Blood in urine 32821280 R31.9 Pain of left forearm 547 9977463 65830 M79.632 Fall from stairs 7957240 02 W10.9XXD [id number] Sarita France[address] [address] 04/03/2023 13:14:04 04/03/2023 14:47:03 COVID-19 797091825 U07.1 [id number] Sarita Román[address] [place] [address] 05/27/2023 15:17:23 05/27/2023 16:02:04 COVID-19 430323158 U07.1 byron, ok to rtw on 05/29/2023 per 5 day isolation guidelines Right side sciatica 3202 029941 74998 M54.31 Chronic low back pain 27 2701165 M54.50 Chronic insomnia 8580340 04 F51.04 [id number] Sarita Chakrabortyall[address] [place] [address] 06/25/2023 15:50:29 06/25/2023 17:48:52 Body fluid retention 03984642 R60.9 Cervical radiculopathy 17548898 M54.12 Chronic low back pain 27 2618740 M54.50 Chronic insomnia 0239456 04 F51.04 [id number] Sarita France[address] [place] [address] 08/05/2023 16:09:01 08/05/2023 17:40:24 Chronic low back pain 789029340 M54.50 Body fluid retention 434 47536 R60.9 [id number] Sarita France[address] [place] [address] 08/12/2023 08:37:55 08/12/2023 10:11:24 Dizziness 645438052 R42 Atypical chest pain 1025 29652 R07.89 Chronic low back pain 27 8586179 M54.50 Chronic he adache disorder 984231073 G44.89 Muscle weakness 69219091 M62.81 [id number] Sarita France [address] [place] [address] 08/27/2023 15:06:19 08/27/2023 17:12:32 Dizziness 880704619 R42 Calcaneal spur of left foot 5647514808 13609 M77.32 Anxiety 64397656 F41.9 Acute migraine 751415048 1 27312 G43.118 [id number] Ceci Lowery [address] [address] 09/24/2023 11:30:30 09/24/2023 12:27:58 Vitamin D deficiency 52131302 E55.9 Low back pain 981389681 M54.50 Insomnia 633300856 G47.0 0 [id number] Lefty Contreras [address] [place] [address] 10/17/2023 13:15:22 10/17/2023 13:56:53 Migraine without aura 13110266 G43.009 Migraine headache. The patient will be given ketorolac as well as Depo-Medro l injections today for treatment. The patient will also be trialed on Qulipta with samples until she sees her neurologis t later at the end of the month. Anxiety 15492735 F41.9 Anxiety. Patient requesting refill of Xanax, advised patient to follow-up with PCP for further considerat ion. [id number] Ceci Lowery [address] [place] [address] 02/20/2024 11:23:50 02/20/2024 11:51:25 Body mass index 40+ - severely obese 166946040 Z68.41 Morbid obesity 801520278 E66.01 Dysuria 91321566 R30.0 Candidiasis of vagina 72 505741 B37.31 Tachycardia 7312919 R00. 0 Pain in right foot 69004 16954 29485 M79.671 Gastroesop hageal reflux disease without esophagitis 601476767 K21.9 [id number] Ceci Lowery [address] [place] [address] 06/10/2024 09:35:18 06/10/2024 10:46:04 Chronic low back pain 370414481 M54.50 Gastroesop hageal reflux disease without esophagitis 083289385 K21.9 Tachycardia 1872227 R00. 0 Pain of le ft shoulder joint 8819358000 6357296 M25.512 Pharyngitis 607010225 J0 2.9 Paresthesi a of upper limb 08417318 R20.2 [id number] Ceci Lowery APRN [facility] [address] [facility] [place] [address] 06/30/2024 08:15:59 06/30/2024 08:54:54 Nausea and vomiting 33288035 R11.2 Low back pain 933523674 M54.50 [id number] Pietro Santos PA-C [facility] [address] [place] [address] [place] [address] 07/17/2024 15:32:13 07/17/2024 17:03:58 Acute back pain with sciatica 263533729 M54.41 Recommend rest, ice, compressio n, elevation, and anti inflamator ies such as NSAIDs. Can alternate APAP and NSAIDs PRN for pain. Bed rest not recommende d, light stretching and activity as tolerated to prevent stiffness. Do not mix different types of NSAIDs.Cau tioned side effect of sedation; do not take with other sedatives. Do not drink alcohol with medication . Do not operate machinery or drive after taking medication . Health Concerns Section Related Observation LastModified by Organization Detai ls LastModified Time None Recorded Concern Status LastModified by Organization Details LastModified Time None Recorded Advance Directives Directive N: Payers Insurance Date Sequence Insurance Name Policy Number Policy Jauregui Covered Member ID Jauregui Member ID Guarantor Name 07/17/2024 [place] [facility] [place]ILLING (MEDICAID) Sarita Contreras [id number] Sarita Contreras 05/15/2017 2 UNSPECIFIED REMIT PAYOR Sarita Contreras 10/21/2023 [place] [facility] [place] (MEDICAID) [id number] Sarita Contreras [id number] Sarita Contreras 09/20/2022 1 UNSPECIFIED REMIT PAYOR Sarita [place] 07/16/2024 1 [employer] - [place] (MEDICAID REPLACEMENT - HMO) Sarita [place] [id number] Sarita Diane 05/27/2023 2 [employer] [place] (HMO) Sarita Diane [id number] Sarita [place] 07/13/2022 2 [employer] (PPO) Sarita [place] [id number] Sarita [place] 07/28/2024 1 [employer] [facility] [place] (HMO) [id number] Sarita [place] [id number] Sarita [place] 04/25/2021 [place] [facility] [place] Sarita Kwok [id number] Sarita [place] 04/25/2021 2 [place] [id number] Saritacamille Kwok [id number] Sarita Diane 04/25/2021 1 [place] [id number] Sarita Diane [id number] Sarita [place] 07/16/2024 1 [place] [id number] 1 Sarita K [place] [id number] Sarita Diane 02/07/2023 1 [place] [id number] 1 Sarita Diane [id number] Sarita [place] 04/28/2019 [employer] [place] [employer] [facility] Sarita Diane 04/25/2021 [place] Saritacamille Kwok [id number] Sarita [place] 10/16/2023 2 [place] [id number] Sarita [place] [id number] Sarita Diane 10/16/2023 [place] [facility] [id number] Sarita K Diane [id number] Sarita [place] Notes Date Note Type Note Provider Name and Address Organization Details Recorded Time 10/17/2023 text/html 38-year-old dhiraj omalley seen in the office today for an acute visit for headaches. Patient has an upcoming appointment with neurologist to get established at the end of the month but states starting yesterday she began with a significant headache that has progressed more today. Patient states she has been on Nurtec in the past but caused her to have a lot of nausea. Patient states that when she gets headaches like this usually comes and for a shot as well as a steroid shot which tends to help her. Lefty Contreras, DO [address], [place], [address], [place] [facility] 10/17/2023 15:49:20 02/20/2024 text/html Presents with on e week of burning upon urination, suprapubic and CVA tenderness, did have chills initially.No fever, N/V/D.No chest pain, shortness of breath, dizziness, lightheadedness, syncope, palpitations or edema. No fever, chills or cough.No blood in urineDoes endorse strong odor to urineCompliant with medications Ceci Lowery APRN [address], [place], [address], [facility] [facility] 02/20/2024 12:43:22 06/10/2024 text/html Presents for kamilah n to neck, left shoulder, radiating into left arm.Associated with numbness to left handCan not recall any trauma or injuryHas been using heating pad with minimal reliefDid take tylenol with no reliefNo chest pain, shortness of breath, dizziness, lightheadedness, syncope, palpitations or edema. No fever, chills or coughDoes also endorse sore throat for past several daysno known ill contacts Ceci Lowery APRN [address], [place], [address], [place] [facility] 06/10/2024 10:43:26 06/30/2024 text/html Presents for kamilah n to bilateral wristsLeft arm is more painful, is waking up crying from painrecent EMG demonstrated bilateral carpal tunnel - reports appt with orthoAlso reports issues with lower back pain - similar to chronic painDenies any trauma or injuryNo chest pain, shortness of breath, dizziness, lightheadedness, syncope, palpitations or edema. No fever, chills or cough.Reports issues of nausea and vomiting yesterdayNo diarrheaCompliant with medications Ceci Lowery, TIM [address], [place], [address], [place] [facility] 06/30/2024 14:54:09 07/17/2024 text/html Patient presents to office with complaints of back pain. 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 Patient also complains of rash to right shoulder x4 days. Pt denies red flags of back pain: Fever, point tenderness, incontinence, saddle anesthesia, or weight loss No other symptoms or concerns reported. Pietro Santos PA-C [address], [place], [address], [place] [facility] 07/20/2024 15:00:24 OBGyn Episode Ob Episode Information Episode Created Date Number of Fetuses Patient Bloodtype Patient rh Status Prepregnancy Weight lbs Domestic Partner Domestic Partner Phone Father Name Customer Care Professional Status 12/01/19 17 1 B Positive Anirudh Contreras Unknown CLOSED Fetus Data First Name Last Name Admitted to NICU Weight (g) Sex Living Outcome Pediatric Complications Fetus ID Race Codes Race Delivery Type Danny 2778.25 1 M true Prematur e 6180 2106-3 White Vaginal Problems Problem Notes pt thinks she was born with spina bifida but not for sureno epidural, breast,kidcare,iudgrowth scan 32 wk per uk re obesity/amaSerial CL 01/21-16 wk= 2.6-2.8 cm; 18wk=_4.1cm___, 20wk=4-4.1cm, with fundal 3.8cm 22wk= 5.1-5.3cm, stable with fundal pressure, 24 wk= 4.4cm,, 3.65cm with fundal pressure. 27wk = 4.1cm, 4cm w/ fundal pressure.CD to work on [place] pa 01/21- not back 01/30--working on this 02/18, vaginal progesterone in meantime. 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 LESTER NL, BPP 11/13. No f/u scan at this time.06/06/17 US EFW 2785gm 50%tile, LESTER 16.3cm BREECH[ ] 06/13 presentation scan Problem Name Start Date End Date Resolution Snomed Code Not e Malpresentation of fetus 16997247 3/1 BREECH--marbella n f/u on 06/13 to see if turned as baby is very active. If still breech, consider pCS versus ECV Harmful pattern of use of cannabis 51360769 11/30 UTox positive//Denies use but admits being around users- Recommend avoid contact. Cyst of left ovary [id number] 199472 4.5 cm left ovarian cyst at 9 wk; decreased to 3.5 cm , no sx at 14 weeks. suspect physiologic: 04-16-17 Rt 3 cm, Lt 4 cm Maternal obesity complicating , childbirth and the puerperium, antepartum 01/11/2017 [id number] Past history of premature delivery 01/11/2017 485471153 pulled old records from 1st . Delivered [address] Cornelius urena t 35 weeks No care. Dated by Dubowitz exam. Consult with LLS- Would only treat with [place] if CL shortened. Needs CL @ 16=-2.6-2.8 cm, [place] rxd, Needs CL 18, 20 ,22,24 wksCelestone 12mg given 05/02-05/03 Influenza vaccine needed 01/11/2017 0474212789029 given 01/11. Td ap 04-25-17 screening 647803365 FTS with [facility]- NT 2.0 mm- NEG serum , AFP WNL History of sleeve gastrectomy 238584523935660 11/30: check vitamin levels12/05: Vit D levels low;(prev on 50,000 units weekly until 07/23) advise 600IU daily including PNV dose. Vit D level 01/21=_ 27.3 (rec restat 88507 units q wk 01/30)___ B12, iron labs, folate normal. Plan equine dentist referral. Check vitamins qTM; REC 32 wk growth scan Max 300+, min 165;05/21 Vit D 28--conitnue 49020 dose Vitamin D deficiency 01/30/2017 16204791 Itching 134366838 LFTs & sean e acids ordered 03/21 dysrhythmia 009225534 [x ] MFM consult with possible echo. Check TFTs03/28 MFM says anatomy complete and normal and f/u 8 weeks for growth. no mention of echo Mukesh Calculation Initial Mukesh Date Initial Exam Date Initial Exam Provider Initial Ultrasound Date Last Menstrual Period Date Ultra Sound Weeks Gestation 07/07/2017 11/30/2016 11/30/2016 09/29/2016 8 Eighteen To Twenty Week Mukesh Update Ultra Sound Date Fundal Height At Umbil Quickening Date Ultra Sound Latest Weeks Gestation Final Mukesh Confirmed By Final Mukesh Confirmed Date Final Mukesh Date Ultra Sound Latest Days Gestation 0 bstears 11/30/2016 07/07/19 18 0 Pre-abelardo Flowsheet Flowsheet Date 11/30/2016 Doty Score Blood Edema Fundus Height Fundus Units Glucose Ketones Leukocytes Nitrite Labor Signs Protein Cervic Dilation Cervic Effacement Cervic Station neg none none negative none Negative neg Type Weight in lbs Pre/Post Dialysis Refused 215.140098708373 BP Diastolic BP Location Tested BP Systolic BP Type 82 126 sitting Fetus Heart Rate Present Fetus Movement Comments early , no lof, no vb. c/o nausea all day (diclegis sent to pharmacy, not picked up yet), also has not picked up rx for bv. denies CF and quad screening. OB history and dating u/s today. bsOBHx: Has nausea--already has rx for diclegis. Encouraged FTS/visit with [facility] given family hx of congenital renal and cardiac defects & spina bifida. She agrees. Schedule for FTS. Has hx of gastric sleeve. Discussed taking PNV--switched to gummies. Checked vitamin levels today in case needs extra supplementation. Return for FTS. KRA Flowsheet Date 12/27/2016 Doty Score Blood Edema Fundus Height Fundus Units Glucose Ketones Leukocytes Nitrite Labor Signs Protein Cervic Dilation Cervic Effacement Cervic Station neg none 12 wks none negative none Negative none neg Type Weight in lbs Pre/Post Dialysis Refused 214.328937079714 BP Diastolic BP Location Tested BP Systolic BP Type 74 116 Fetus Heart Rate Present A Present Fetus Movement A No Comments No vb, lof or unusual d/c. F TS w/[facility] prior to OBPE today. Still having alot of nausea, did not get diclegis refilled as it was $40, she wants something cheaper. mdr//OBPE, Pap, One Swab for GC/CT today. FTS with [facility], NT 2.0mm. Maternal serum obtianed. Discussed Lt ovarian cyst and to notify with pain. F/u @ 16 wk. Aware of 2 uterine fibroids. 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 Will get Diclegis filled. Vit D level low. Need 600 IU including PNV. C/o sinus congestion, OTC discussed. Denies THC use but has been exposed. Avoid exposure. RTC 4 wks with US to f/U LT cyst. RH Flowsheet Date 01/08/2017 Doty Score Blood Edema Fundus Height Fundus Units Glucose Ketones Leukocytes Nitrite Labor Signs Protein Cervic Dilation Cervic Effacement Cervic Station neg none none negative none Negative neg Type Weight in lbs Pre/Post Dialysis Refused 220.809888063087 BP Diastolic BP Location Tested BP Systolic BP Type 82 124 sitting Fetus Heart Rate Present A 155 Fetus Movement A No Comments BI for abd. pain, pt picked up a 36 bottle case of water and every since her stomach has hurt, no lof, no vb-ct// Only took Tylenol 500 mg and says pain gets better if lies on right side. Recommended maternity belt. Lots of heartburn not responding to Tums-Rx with Zantac. More samples of Diclegis given. Keep appt Saturday for U/S and early 1 hr then. sk Flowsheet Date 01/11/2017 Doty Score Blood Edema Fundus Height Fundus Units Glucose Ketones Leukocytes Nitrite Labor Signs Protein Cervic Dilation Cervic Effacement Cervic Station neg none 14 wks none negative none Negative none neg Type Weight in lbs Pre/Post Dialysis Refused 217.659894586589 BP Diastolic BP Location Tested BP Systolic BP Type 74 118 Fetus Heart Rate Present A Present Fetus Movement A Yes Comments No vb, lof or unusual d/c. E evelio 1hr and US today. Wants AFP, also wants flu vac today. mdr pain from pulling bottles has resolved no vb; US- nl placenta and 3.5 cm simple Left ovarian cyst. no sx- ok for exp mgmt. pain noted after strain 10/2- better as off work this week note given. didNOT have CL with this- due 16 wk- rto 16 wk for this, AFP vs quad (DEPENDING IF WE GET A RESULT OF FTS_ ALR [place] with [facility] rep to get answer as no success with RN and Mae trying to get them to add in the NT- has been sent but not reported yet.) rto 18, 18 CL, 20 CL and mariana US; ._/ls Flowsheet Date 01/21/2017 Doty Score Blood Edema Fundus Height Fundus Units Glucose Ketones Leukocytes Nitrite Labor Signs Protein Cervic Dilation Cervic Effacement Cervic Station neg 16 wks none negative 2+ Negative none neg Type Weight in lbs Pre/Post Dialysis Refused 215.148139611622 BP Diastolic BP Location Tested BP Systolic BP Type 70 104 sitting Fetus Heart Rate Present A Present Fetus Movement A Yes Comments NC , well, ? flutters, no NV , disc baselineUS 2.6-2.8 cm no funnelling, does desire to start isauro q wk (offered also vaginal nightly)- will start PA per CD; rec still q 2 wk US CL, nest 18 and if progressive shortening will dw re conversion otovaginal vs cerclage (<2.0); DID get nl FTS blood back after visit- now for AFP only; nl gtt last recehck 28 wk; disc vit D- had NOT been using any at time of 11/30 draw=21l on pnv now- check today with afp. 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 ; rto 2wk with 18 wk CL and as soon as we hav isauro avail for 1st injection/ls Flowsheet Date 01/30/2017 Doty Score Blood Edema Fundus Height Fundus Units Glucose Ketones Leukocytes Nitrite Labor Signs Protein Cervic Dilation Cervic Effacement Cervic Station neg 16 cm none negative none Negative none neg Type Weight in lbs Pre/Post Dialysis Refused 215.865452266699 BP Diastolic BP Location Tested BP Systolic BP Type 68 102 sitting Fetus Heart Rate Present A Present Fetus Movement Comments No complaints, questions reg arding starting shot ;US today.= better at 4-1 4.4 cm w/o pressure, 4.0 with pressure. No complaints of pressure or bleeding. Normal AFP returned last week. Vitamin D still low at 27.3 advised 50,000 units weekly in addition to supplement. Did not see this until after patient left. Absent message with [facility] to notify for prescription. Wants to change her February 21 anatomy ultrasound to February 15, cervical length and as well. [place] preauthorization is still pending, return to start this as soon as available hopefully before next appointment//ls Flowsheet Date 02/18/2017 Doty Score Blood Edema Fundus Height Fundus Units Glucose Ketones Leukocytes Nitrite Labor Signs Protein Cervic Dilation Cervic Effacement Cervic Station neg none 20 cm none negative none Negative none neg Type Weight in lbs Pre/Post Dialysis Refused 217.926645777350 BP Diastolic BP Location Tested BP Systolic BP Type 76 128 Fetus Heart Rate Present A 151 Present Fetus Movement A Yes Comments g&a us, afm,no vb,no lof,neg leuk,neg nitr no new complaints voiced/kh///Discussed anatomy US and Cervical Length today. She says she has been on the phone with [facility] for 3 weeks trying to get P[place]. We will work on PA today and she can start vaginal prometrium in the meantime. KRA Flowsheet Date 02/27/2017 Doty Score Blood Edema Fundus Height Fundus Units Glucose Ketones Leukocytes Nitrite Labor Signs Protein Cervic Dilation Cervic Effacement Cervic Station Type Weight in lbs Pre/Post Dialysis Refused 218.167382200376 BP Diastolic BP Location Tested BP Systolic BP Type 64 124 Fetus Heart Rate Present Fetus Movement Comments Flowsheet Date 03/07/2017 Doty Score Blood Edema Fundus Height Fundus Units Glucose Ketones Leukocytes Nitrite Labor Signs Protein Cervic Dilation Cervic Effacement Cervic Station neg none 23 cm none negative trace Negative none neg Type Weight in lbs Pre/Post Dialysis Refused 218.034368798603 BP Diastolic BP Location Tested BP Systolic BP Type 68 116 Fetus Heart Rate Present A 155 Present Fetus Movement A Yes Comments us, afm,no vb,no lof,neg alan k,neg nitr, no new complaints voiced, isauro not here yet but has been ordered, advised pt to call tomorrow and see if it arrives tomorrow to start her weekly injections/kh///doing well today. No complaints. Reviewed CL findings--reassuring!! Plan continue vaginal progesterone until Isauro ready--she will call tomorrow to see if it is ready. Check vitamin Labs today. Return in 1 week hopefully for Isauro and repeat CL in 2 weeks. KRA Flowsheet Date 03/14/2017 Doty Score Blood Edema Fundus Height Fundus Units Glucose Ketones Leukocytes Nitrite Labor Signs Protein Cervic Dilation Cervic Effacement Cervic Station neg none 24 cm none negative trace Negative Backpain neg 0c m 0% -4 Type Weight in lbs Pre/Post Dialysis Refused 220.019315252965 BP Diastolic BP Location Tested BP Systolic BP Type 72 116 Fetus Heart Rate Present A Present Fetus Movement A Yes Comments C/O back pain and pressure. No vb, or lof, has d/c from progesterone insert. mdr//Baby active. Worried about back pain. Cx LTC. ENC maternity belt or girdle. Isauro today. Stop Progesterone. RTC 1 wk with CL. RH Flowsheet Date 03/18/2017 Doty Score Blood Edema Fundus Height Fundus Units Glucose Ketones Leukocytes Nitrite Labor Signs Protein Cervic Dilation Cervic Effacement Cervic Station neg none 24 none negative none Negative neg 0cm 0% Type Weight in lbs Pre/Post Dialysis Refused 222.63917888862 BP Diastolic BP Location Tested BP Systolic BP Type 78 140 sitting 78 112 lying on side Fetus Heart Rate Present A 140 Fetus Movement A Yes Comments BI for lower back pain radia ting to lower stomach, no lof, no vb-ct/ NCVAT bilat.Has had long standing back issues for years-used to see a chiropracter-will see if she can get in with one today. Advised to take Ibuprofen 800 mg has rx at home-may take tid. Some thin pale yellow vag discharge that started after progesterone supp- now on P[place]. G/C chlamydia cult sent. sk Flowsheet Date 03/21/2017 Doty Score Blood Edema Fundus Height Fundus Units Glucose Ketones Leukocytes Nitrite Labor Signs Protein Cervic Dilation Cervic Effacement Cervic Station neg none 25 cm none negative trace Negative none neg Type Weight in lbs Pre/Post Dialysis Refused 219.860782784075 BP Diastolic BP Location Tested BP Systolic BP Type 70 122 Fetus Heart Rate Present A 150 Present Fetus Movement A Yes Comments us,afm,no vb,no lof,neg leuk ,neg nitr, c/o itching all over but has for the last several weeks, isauro given/kh///Discussed itching. No visible rash, just scratch cleary. Advised lotion. Draw LFTs and bile acids. Also with arrhythmia on doppler--skipping beats. Zay TFTs today and to see [facility] next week for US evaluation and possible echocardiogram. No further issues with discharge or cramping. Discussed Cervical Length--shortened by stable. Repeat at 26+5 weeks. Return next week. ALESSANDRA pt came back in for headache, heart racing and doesnt feel good since this morningd appt bp 104/72 p-84, O2 -99/kh//Returned to office Just did not feel well, dizzy with WILSON. Stressed with at home over brother. BS-103. lying BP 112/68 p 66 sitting BP 118/70 P 74 Standing BP. 118/72 89 FHT 150's and regular. Keep appt as scheduled. RH Flowsheet Date 03/28/2017 Doty Score Blood Edema Fundus Height Fundus Units Glucose Ketones Leukocytes Nitrite Labor Signs Protein Cervic Dilation Cervic Effacement Cervic Station neg none none negative none Negative none neg Type Weight in lbs Pre/Post Dialysis Refused 223.006351205884 BP Diastolic BP Location Tested BP Systolic BP Type 64 122 Fetus Heart Rate Present A Present Fetus Movement A Yes Comments uk,afm,no vb,no lof,neg leuk ,neg nitr, c/o rash on her back/kh///Saw [facility] today for arrhythmia and they did anatomy and complete & normal EFW 56%tile. They want f/u in 8 weeks. No mention of echo. Rash likely dry skin--encouraged lotion. Return in 1 weeks. ALESSANDRA Flowsheet Date 04/04/2017 Doty Score Blood Edema Fundus Height Fundus Units Glucose Ketones Leukocytes Nitrite Labor Signs Protein Cervic Dilation Cervic Effacement Cervic Station neg 27 cm none negative none Negative neg Type Weight in lbs Pre/Post Dialysis Refused 226.815539830591 BP Diastolic BP Location Tested BP Systolic BP Type 76 120 sitting Fetus Heart Rate Present A 145 Present Fetus Movement Comments AFM, no lof, no vb. isauro t zenobia. isauro was ordered by [facility]///Sarita is doing well. Reports had an episode of emesis yesterday--thinks it was a virus, but feels much better today. Got Isauro. Planning on repeat cervical length with next visit. ALESSANDRA Flowsheet Date 04/11/2017 Doty Score Blood Edema Fundus Height Fundus Units Glucose Ketones Leukocytes Nitrite Labor Signs Protein Cervic Dilation Cervic Effacement Cervic Station neg none 29 cm none negative none Negative trace Type Weight in lbs Pre/Post Dialysis Refused 225.508234021682 BP Diastolic BP Location Tested BP Systolic BP Type 72 124 sitting Fetus Heart Rate Present A 144 Fetus Movement A Yes Comments US/1hr GTT today. Isauro rec eived. Pt c/o HR 114 a couple days ago when pt was at rest. Pt stated she was feeling stressed at the time.US for Cx Length 4.1 cm/4 cm +/- pressure. US disc. NQ, NC. Feels well/DRW Flowsheet Date 04/16/2017 Doty Score Blood Edema Fundus Height Fundus Units Glucose Ketones Leukocytes Nitrite Labor Signs Protein Cervic Dilation Cervic Effacement Cervic Station neg none none negative none Negative Backpain neg 0cm 0% -3 Type Weight in lbs Pre/Post Dialysis Refused 226.917569265931 BP Diastolic BP Location Tested BP Systolic BP Type 86 118 Fetus Heart Rate Present A 150 Present Fetus Movement A Yes Comments bi for lower left quadrant p ain and left lower back pain, afm,no vb,no lof,neg leuk,neg nitr,no other complaints voiced/shiraz///Presents with LLQ pain & lightheadedness. Very benign exam. Got US given hx of ovarian cyst, but no obvious cyst or torsion. Sent for labs, IVF. Cvx //hi. FFN collected and sent with patient to be sent at hospital. ALESSANDRA Flowsheet Date 04/18/2017 Doty Score Blood Edema Fundus Height Fundus Units Glucose Ketones Leukocytes Nitrite Labor Signs Protein Cervic Dilation Cervic Effacement Cervic Station neg none 30 cm none negative none Negative none neg Type Weight in lbs Pre/Post Dialysis Refused 224.565198141347 BP Diastolic BP Location Tested BP Systolic BP Type 72 116 Fetus Heart Rate Present A Present Fetus Movement A Yes Comments No vb, lof or unusual d/c. r eports she was at [facility] tue and was thought to have a kidney stone. No blood in urine. She has been off work last few days w/pain and light headed. 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 Isauro given. mdr//Baby active. [place] today. Worried about working because she gets dizzy. 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 Will talk to work to see if she can be off. TDAP info given. Breast itchy, nl lesion using lotion, can try Hydrocortisone cream. RTC 1 wks.Rh Flowsheet Date 04/25/2017 Doty Score Blood Edema Fundus Height Fundus Units Glucose Ketones Leukocytes Nitrite Labor Signs Protein Cervic Dilation Cervic Effacement Cervic Station neg none 31 cm none negative 1+ Negative Cramping neg Type Weight in lbs Pre/Post Dialysis Refused 222.12450765203 BP Diastolic BP Location Tested BP Systolic BP Type 78 110 sitting Fetus Heart Rate Present A 155 Fetus Movement A Yes Comments ob visit. isauro given. no l of, vb, or unusual d/c. C/o occas. cramping. Repeat urine cx per KRA. ABRNo school for a week so has not driven; lost 2# but states eating well and drinking water and gator-simba. 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 Sciatic pressure on Rt: maternity belt, posture, lifting. Had f/u US for ovarian cyst on 04-16-17 here: left 4 cm, Rt 3 cm. OK for Tdap, reacted to flu vaccine but not allergic to eggs/DRW Flowsheet Date 05/02/2017 Doty Score Blood Edema Fundus Height Fundus Units Glucose Ketones Leukocytes Nitrite Labor Signs Protein Cervic Dilation Cervic Effacement Cervic Station neg none 30 cm none negative none Negative none neg 1cm 70 % -2 Type Weight in lbs Pre/Post Dialysis Refused 221.911420523288 BP Diastolic BP Location Tested BP Systolic BP Type 70 122 Fetus Heart Rate Present A 140 Present Fetus Movement A Yes Comments afm,no vb,no lof,neg leuk,ne g nitr, c/o upper abd discomfort, states she just doesn't feel right/kh///Reports has had gallbladder removed. Pain is across top of fundus. Decreased FM. [place] urine--reports drinking gatorade. No fundal tenderness. Speculum exam performed and FFN collected (last intercourse 48 hours ago). Cvx ft/70/-2, very soft. Advised to [facility] for monitoring, send FFN, consideration of BMZ, UA. D/W CNM. ALESSANDRA Smith Flowsheet Date 05/03/2017 Doty Score Blood Edema Fundus Height Fundus Units Glucose Ketones Leukocytes Nitrite Labor Signs Protein Cervic Dilation Cervic Effacement Cervic Station neg none 31 cm none negative none Negative Cramping neg Type Weight in lbs Pre/Post Dialysis Refused 222.71600929660 BP Diastolic BP Location Tested BP Systolic BP Type 78 122 Fetus Heart Rate Present A Present Fetus Movement A Yes Comments Still c/o cramping some, no vb, lof or unusual d/c. She has felt a little tightening, has not rested much, sinus congestion and h/a. 2nd celestone today. mdr//Baby is not moving as much today, NST reactive, Cat 1, Can hear FM and she is able to feel movement. Had total of 7 contraction all day. Celestone today. Can take Benadryl or Sudafed for sinus congestion. Variable decels lasting 10-20 seconds noted on NST, with good accels, Cat 2. US for BPP. BPP 11/13. LESTER 18. Reviewed with SMO. Sent to hospital for prolonged monitoring. RTC 1 wk.RH Flowsheet Date 2017 Doty Score Blood Edema Fundus Height Fundus Units Glucose Ketones Leukocytes Nitrite Labor Signs Protein Cervic Dilation Cervic Effacement Cervic Station neg none 31 wks none negative none Negative none trace Type Weight in lbs Pre/Post Dialysis Refused 222.80527782994 BP Diastolic BP Location Tested BP Systolic BP Type 68 118 sitting Fetus Heart Rate Present A Present Fetus Movement A Yes Comments AFM, no lof or vb. [facility] - no f/u necessary - breech, EFW 38%. Taking PNV. No complaints. Had labor recently and received celestone. F/U 1 week for Isauro/SMO Flowsheet Date 05/16/2017 Doty Score Blood Edema Fundus Height Fundus Units Glucose Ketones Leukocytes Nitrite Labor Signs Protein Cervic Dilation Cervic Effacement Cervic Station neg none 33 cm none negative none Negative none neg Type Weight in lbs Pre/Post Dialysis Refused 223.558376227410 BP Diastolic BP Location Tested BP Systolic BP Type 62 124 Fetus Heart Rate Present A 145 Present Fetus Movement A Yes Comments afm,no vb,no lof,neg leuk,ne g nitr,c/o bilateral feet tingling but is better with elevation/isauro given/kh///Doing great! No VB, LOF. No cramping, ctx or signs of labor. Good FM. No LE edema. [place] given. Check vitamin levels today. Return in 1 week. KRA Flowsheet Date 05/23/2017 Doty Score Blood Edema Fundus Height Fundus Units Glucose Ketones Leukocytes Nitrite Labor Signs Protein Cervic Dilation Cervic Effacement Cervic Station neg none 33 cm none negative none Negative none neg 0cm 70 % -3 Type Weight in lbs Pre/Post Dialysis Refused 227.839473214393 BP Diastolic BP Location Tested BP Systolic BP Type 62 118 Fetus Heart Rate Present A 145 Present Fetus Movement A Yes Comments isauro given , afm,no vb, ne g leuk,neg nitr, ? lof, c/o clear vaginal discharge/kh///Ruled out for PPROM: negative nitrazine, pool, ferning. Cvx ft/70/-2--can't even really reach presenting part! Discussed Vitamin D level--28. Continue 11097 IU supplementation. Given breech at 33 weeks, recommended repeat Growth/presentation scan at 36-37 weeks (given gastric surgery). Return in 1 week. KRA Flowsheet Date 05/28/2017 Doty Score Blood Edema Fundus Height Fundus Units Glucose Ketones Leukocytes Nitrite Labor Signs Protein Cervic Dilation Cervic Effacement Cervic Station neg none 34 cm none negative none Negative Cramping neg 0cm 50% -3 Type Weight in lbs Pre/Post Dialysis Refused 228.657974881312 BP Diastolic BP Location Tested BP Systolic BP Type 74 116 Fetus Heart Rate Present A Present Fetus Movement A Yes Comments No vb, lof or unusual d/c. B I for c/o cramping/ctx. EFM applied ctx noted. reactive. mdr//Baby active. NST reactive, Cat 1. Irreg contx with uterine irritability. Sent to [facility] for Monitoring and IV fluids. Keep f/U appt as scheduled. Flowsheet Date 05/30/2017 Doty Score Blood Edema Fundus Height Fundus Units Glucose Ketones Leukocytes Nitrite Labor Signs Protein Cervic Dilation Cervic Effacement Cervic Station neg none 35 cm none negative trace Negative Pravin Douglas neg Type Weight in lbs Pre/Post Dialysis Refused 231.148714992488 BP Diastolic BP Location Tested BP Systolic BP Type 72 116 Fetus Heart Rate Present A Present Fetus Movement A Yes Comments No vb, lof or unusual d/c. O cc ctx, nothing painful or regular. mdr//Baby active. Feeling better physically today. Keil given. Already scheduled for next visit with US. RH Flowsheet Date 06/06/2017 Doty Score Blood Edema Fundus Height Fundus Units Glucose Ketones Leukocytes Nitrite Labor Signs Protein Cervic Dilation Cervic Effacement Cervic Station neg none negative trace Negative trace 1cm 50% -3 Type Weight in lbs Pre/Post Dialysis Refused 231.553589502036 BP Diastolic BP Location Tested BP Systolic BP Type 80 124 sitting Fetus Heart Rate Present A 144 Present Fetus Movement Comments AFM, no lof, no vb. c/o muco usy discharge, contractions since 3 am this morning. pain scale 4-5, with a lot of vaginal pressure. isauro inj, gbs today. bs///Cvx checked and /-3. Check NST to see if vic. She thinks the discomfort is more just from baby moving all over the place. Advised presentation scan next as today is breech, and if still breech, will discuss options. Briefly discussed either primary c section versus external version. AGA nml fluid on US. KRANST R&R. toco with irritability. Re-check without any change. DC home. Done with Isauro as 36 weeks now Menstrual History Last Menstrual Date Menses Monthly On Bcp Conception Prior Menses Frequency Hcg Plus Date Menarche Onset Age 0609/29/2016 Genetic Screening And Infection History Question Response Note Patient's Age Will Be 35 Yea rs Or Older At Estimated Date of Delivery false Thalassemia (Hebrew, Nepali, Mediterranean, Or Background): MCV < 80 false Neural Tube Defect (Meningom yelocele, Spina Bifida, Or Anencephaly) false Congenital Heart Defect true pts armando r brother at 2 months old due to congestive heart failure Down Syndrome false Bertrand-Sachs (eg, Jehovah'S Witness, Cajun , Vietnamese-Mittie) false Jb Disease false Sickle Cell Disease Or Trait () false Hemophilia Or Other Blood Disorders false Muscular Dystrophy false Cystic Fibrosis false Jorge's Chorea false Mental Retardation/Autism false If Yes, Was Person Tested Fo r Fragile X? false Other Inherited Genetic Or C hromosomal Disorder false Maternal Metabolic Disorder (eg, Type 1 Diabetes, PKU) false Patient Or Baby's Father Had A Child With Defects Not Listed Above false Recurrent Loss, Or A Stillbirth false Medications (including Suppl ements, Vitamins, Herbs, OTC Drugs), Illicit/Recreational Drugs, Alcohol true vitamins, diclegis If Yes, Agent(s) And Strength/Dosage false Any Other Genetic History true pts yo franklin brother at 1 month old due to congenital kidney failure Live With Someone With TB Or Exposed To TB false Patient Or Partner Has Histo ry Of Genital Herpes false Rash Or Viral Illness Since Last Menstrual Period false History Of STD, Gonorrhea, C hlamydia, HPV, Syphilis false Other Infection History false History of HIV false History of Hepatitis false Prior GBS-infected child false Recent Travel Outside of Country false Delivery Information Delivery Date Delivery Type Labor Anesthesia Weeks Gestation Incision Type Labor Labor Length Hrs Delivered By Post Complications Tubal Sterilization Discharge Date Comments 8 [facility]-Ep idural 36.5 true [place] None 06/14/2017 labor, 1st degree lac and repair per KA Discharge Information Feeding Method Contraceptive Method Maternal HG B and HCT Levels Breast OCP 11.4 Ob Episode Information Episode Created Date Number of Fetuses Patient Bloodtype Patient rh Status Prepregnancy Weight lbs Domestic Partner Domestic Partner Phone Father Name Customer Care Professional Status 12/01/19 17 1 CLOSED Fetus Data First Name Last Name Admitted to NICU Weight (g) Sex Living Outcome Pediatric Complications Fetus ID Race Codes Race Delivery Type 2721.55 2 F Full Term 6181 Vaginal Mukesh Calculation Initial Mukesh Date Initial Exam Date Initial Exam Provider Initial Ultrasound Date Last Menstrual Period Date Ultra Sound Weeks Gestation 0 Eighteen To Twenty Week Mukesh Update Ultra Sound Date Fundal Height At Umbil Quickening Date Ultra Sound Latest Weeks Gestation Final Mukesh Confirmed By Final Mukesh Confirmed Date Final Mukesh Date Ultra Sound Latest Days Gestation 0 0 Menstrual History Last Menstrual Date Menses Monthly On Bcp Conception Prior Menses Frequency Hcg Plus Date Menarche Onset Age Delivery Information Delivery Date Delivery Type Labor Anesthesia Weeks Gestation Incision Type Labor Labor Length Hrs Delivered By Post Complications Tubal Sterilization Discharge Date Comments 1 delivere d at [facility] at age of 15, thinks was 36 weeks when delivered Discharge Information Feeding Method Contraceptive Method Maternal HG B and HCT Levels
[2024-10-04 20:03] VITALS: BP 138/82; O2SAT 99
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
[2024-10-04] MEDS: TET/DIPHTH/PERT-ADULT 0.5ML SYRINGE 0.5 ML IM (20:38)
[2024-10-04 20:45] VITALS: BP 135/74; PULSE 68; RESP 14; TEMP 36.6; O2SAT 100
== END 2024-10-04 20:46 | disposition home or self-care (01) ==
PROVIDERS: Emergency Provider Emergency Medicine; PCP Nurse Practitioner
DX: S01.21XA Laceration without foreign body of nose, initial encounter (principal); W50.0XXA Accidental hit or strike by another person, initial encounter; Z23 Encounter for immunization
CPT/HCPCS: 12011; 90471; 90715; 99283

== ENCOUNTER 2025-03-24 14:31 | Emergency (ER) | payer OTHER, SELFPAY ==
--- NOTE | 2025-03-24 14:35 | ED_ITS ---
<Statement entered by Louis Araujo MD - 03/26/25 16:27> Louis Araujo MD: I was consulted by the TATI, and we discussed the complexity of the problems being addressed. I approve the treatment and management plan for this patient's care in the emergency department, thus performing a substantive portion of the medical decision making. Discharge Plan Disposition Patient Disposition: Home, Self-Care Condition: Good Prescriptions Prescriptions: No Action epinephrine 0.3 mg/0.3 mL auto-injector IM Patient Comments: USE DIRECTED hydrocodone-acetaminophen 5-325 mg tablet 1 tab PO Q6H PRN (Reason: Postop pain) Qty: 24 0RF diazepam [Valium] 10 mg tablet 10 mg PO ONCE PRN (Reason: anxiety) Qty: 1 0RF Rx Instructions: one hour prior to MRI scan meloxicam 15 mg tablet 15 mg PO DAILY Qty: 30 2RF omeprazole 40 mg Capsule,Delayed Release(Dr/Ec) 40 mg PO DAILY metoprolol succinate 25 mg Capsule,Sprinkle,Er 24hr 25 mg PO DAILY Referrals Follow up/Referrals: Ceci Lowery APRN [Primary Care Provider, Medical] - See instructions Activity Restrictions/Add. Instructions Additional Instructions/Restrictions: You were evaluated on an emergency basis. It is very important that you follow- up with your primary care provider and any specialist who we discussed within the next 2 days in order to better assess your health more comprehensively. For example, incidental findings on imaging or laboratory results that were performed today may be discovered, which do not require immediate medical care, but may impact your health in the future. If your symptoms worsen or persist, please return to the emergency department immediately for reassessment. Take all medications as prescribed. In queue for allowing me to participate in your health care, and I hope you feel better soon. Clinical Impressions Clinical Impression: Acute strain of neck muscle Instructions Patient Instructions: DI for Cervical Muscle Strain Print Language Print Language: Andorran Discharge ED Provider: Mattie Cifuentes General Adult HPI General Chief complaint: Fall Stated complaint: AO12/16, pain in neck/head Time Seen by Provider: 03/24/25 14:35 History of Present Illness HPI narrative: 39-year-old female presents emergency department with complaints of head and back pain after falling down some stairs yesterday. Patient denies LOC. Patient states she does have a history of cervical radiculopathy. Patient reports she is not currently taking any pain medications for her chronic pain. Related Data Home Medications ?Medication ?Instructions ?Recorded ?Confirmed metoprolol succinate 25 mg capsule 25 mg PO DAILY 10/3002/22/25 sprinkle, ext. release 24 hr omeprazole 40 mg capsule,delayed 40 mg PO DAILY 02/22/25 release epinephrine 0.3 mg/0.3 mL IM 11/09/24 02/22/25 injection, auto-injector Previous Rx's ?Medication ?Instructions ?Recorded hydrocodone 5 mg-acetaminophen 325 1 tab PO Q6H PRN Po stop pain #24 09/15/24 mg tablet tabs diazepam 10 mg tablet (Valium) 10 mg PO ONCE PRN anxie ty #1 tab 12/31/24 meloxicam 15 mg tablet 15 mg PO DAILY #30 tabs 03/08 05/02 Allergies Allergy/AdvReac Type Severity Reaction Status Date / Time tramadol Allergy Severe Swelling Verified 02/22/25 09:46 of Lip/Tongue/Throat amoxicillin (From Augmentin) Allergy Rash Verified 02/22/25 09:46 clavulanic acid (From Allergy Rash Verified 02/22/25 09:46 Augmentin) morphine Allergy Redness of Verified 02/22/25 09:46 Skin Sulfa (Sulfonamide Allergy Swelling Verified 02/22/25 09:46 Antibiotics) of the Eye [facility] Disclaimer: The information contained in this section may have been updated after the patient was seen, as this information can be updated by other users. Medical History Fracture closed, nasal bone Deviated septum Nasal bone fractures Her dorsum is depressed and displaced to the right. I do think this is contributing to your discomfort. We recommended close reduction nasal fracture with stabilization. I discussed the procedure at length with the patient. We discussed potential risks, complications, benefits as well as alternative therapy. I also discussed potential anesthesia related risks and complications. I mentioned that she will not be able to have the dorsum reduced with this procedure but having the nasal pyramid brought back to the midline was significant pale remove her airflow and pain level. She stated understanding and consented to the procedure. PCOS (polycystic ovarian syndrome) POTS (postural orthostatic tachycardia syndrome) GERD (gastroesophageal reflux disease) Surgical History Status post nasal septoplasty History of gastric surgery Hx of cholecystectomy History of ankle surgery Hx of knee surgery Hx of sinus surgery Hx of adenoidectomy Hx of tonsillectomy Family History Other Family history of CVA Family history of cancer Family history of diabetes mellitus Family history of heart disease Social History Smoking Status: Never smoker alcohol intake: never current occupational status: employed Travel in the last 8 weeks?: None Have you lived/traveled outside US in past 30 days?: No Contact w/someone who lives/traveled outside US past 30 days?: No Exposure to someone with infectious disease in past 14 days?: No Do you have a fever (greater than 100.4 F or 38 C)?: No Have you tested positive for COVID-19?: No Exposed to someone with COVID-19 in past 14 days?: No Do you have a sore throat?: No Do you have a cough?: No Do you have any weakness?: No Do you have any diarrhea?: No Are you experiencing any unusual bleeding?: No Do you have any muscle aches/pain?: No Do you have any abdominal pain?: No Are you experiencing loss of taste or smell?: No Other Medical History Have you received the Pneumonia Vaccine: Yes ROS Obtained: Yes other Constitutional Constitutional: Reports headache(s) ENT Ears, Nose, Mouth, and Throat: Reports headache(s) and Reports neck pain Musculoskeletal Musculoskeletal: Reports limited range of motion, Reports myalgias and Reports neck pain Neurologic Neurologic: Reports headache(s) Physical Exam Narrative Physical exam: General: Awake, aware, in no acute distress HEENT: Normocephalic, patient reports tenderness on palpation of posterior as well as bilateral sides of her neck. CV: RRR, no murmurs, rubs, or gallops Pulm: CTA bilaterally with no rhonchi, rales, wheezes ABD: Nontender, no swelling, guarding, or rebound tenderness Psych, appropriate mood and affect Musculoskeletal: Sensations intact with 2+ pulses in all extremities. Patient is ambulating with steady gait. General General appearance: alert Respiratory Respiratory exam: Present normal lung sounds bilaterally Cardiovascular Cardiovascular exam: Present regular rate Neurological Exam Neurological exam: Present alert Medical Decision Making Medical Records Screening: Per USPSTF and CDC recommendations, given the prevalence of disease in our region, it is our hospital?s policy to screen for HIV and viral Hepatitis for all patients aged 18 and over and those with ongoing risk factors. Yvon Inquiry Pt receiving controlled substance: No Vital Signs: 03/24/25 14:37 03/24/25 14:40 Temperature 98.1 F Temperature Source Oral Pulse Rate 86 Pulse Rate [Right Radial] 92 H Respiratory Rate 16 Blood Pressure 133/84 Blood Pressure [Right Arm] 133/84 Blood Pressure Mean [Right Arm] 100 Blood Pressure Source [Right Arm] Automatic Cuff Blood Pressure Position [Right Arm] Supine 02 Sat by Pulse Oximetry 99 99 Oxygen Delivery Method Room Air Room Air Lab Data Lab Results 03/24/25 14:57: Urine HCG, Qual Negative Orders (Tests/Meds): ED MEDICATIONS Discontinued Medications Generic Name Dose Route Start Last Admin Trade Name Eduq PRN Reason Stop Dose Admin Dexamethasone Sodium Phosphate 10 mg 03/24/25 16:20 03/24/25 16:36 Dexamethasone 4mg/Ml 1ml Vial IM 03/24/25 16:21 10 mg ONCE ONE Administration Ketorolac Tromethamine 30 mg 03/24/25 14:43 03/24/25 15:14 Ketorolac 30mg/Ml Vial IM 03/24/25 14:44 30 mg ONCE ONE Administration Orphenadrine Citrate 60 mg 03/24/25 14:43 03/24/25 15:13 Orphenadrine Citrate 60mg/2ml Vial IM 03/24/25 14:44 60 mg ONCE ONE Administration ORDERS Category Date Time Status CT cervical spine wo con Stat Cat Scan 03/24/25 14:[address] head/brain wo con Stat Cat Scan 03/24/25 14:43 Completed HIV Combo Stat Lab 03/24/25 14:47 Ordered Hepatitis C Ab Qual. W/ RFX Stat Lab 03/24/25 14:47 Ordered Urine , HCG Qual. Stat Lab 03/24/25 14:57 Completed Medical Decision Narrative: Initial impression of presenting illness: 39-year-old female with a history of cervical radiculopathy presents emergency department with complaints of neck and head pain after falling down some stairs yesterday. She denies LOC. She states she has not take any medication for her chronic pain. Differential diagnosis includes but is not limited to: Musculoskeletal strain, degenerative disc disease, herniated disc, intracranial abnormality, concussion Patient arrives hemodynamically stable, afebrile, without respiratory distress with vital signs interpreted by myself. Initial physical exam reveals tenderness on palpation of posterior aspect of patient's neck as well as bilateral sides. Patient with limited range of motion due to pain. Sensations intact with 2+ pulses in all extremities. Patient ambulating with steady gait. No neurological deficits present Initial diagnostic plan: CT of head neck without contrast, Norflex and Toradol for pain control Results from initial plan were reviewed and interpreted by myself, pertinent positives include: CT of head and neck were unremarkable for acute findings. Interventions in the ED: Patient was initially given Norflex and Toradol for pain control. Patient continued to complain of discomfort and was then given a dexamethasone injection. Patient was made aware of the results and the findings, upon reevaluation patient has remained stable throughout stay, symptoms remained stable. Upon reevaluation patient is resting in her room. Vital signs have remained stable. Patient with no signs of acute distress. Disposition: Reviewed findings today's workup with patient informed her no acute abnormalities were noted on her CT scans. Advised patient that she can continue with her previously prescribed muscle relaxers. She reports she has both Flexeril and Robaxin at home. She also states that she has lidocaine patches at home. Recommended that she use moist heat with gentle stretching exercises. Advised her if her symptoms or not improving to follow-up with her spine doctor. Advised her to return to the emergency department any new or worsening symptoms. Patient is agreeable to plan of care. Patient made aware of findings and had a detailed discussion with symptomatic care and return precautions, patient voiced understanding. Critical Care Critical Care Time Critical Care Time: No
[2025-03-24 14:37] VITALS: BP 133/84; PULSE 86; O2SAT 99
[2025-03-24 14:40] VITALS: BP 133/84; PULSE 92; RESP 16; TEMP 36.7; O2SAT 99; BMI 35.0
--- NOTE | 2025-03-24 14:43 | CT_ITS ---
FINAL REPORT TECHNIQUE: Noncontrast exam This study was performed with techniques to keep radiation doses as low as reasonably achievable, (ALARA). Individualized dose reduction techniques using automated exposure control or adjustment of mA and/or kV according to the patient''s size were employed. CLINICAL HISTORY: trauma FINDINGS: No abnormal density is seen. Ventricles are normal. There is no hemorrhage. No mass effect is seen. Bone windows show no evidence of fracture. IMPRESSION: No acute findings Reviewed, Interpreted and Dictated by Steve Meyer MD Transcribed by Trinidad Fregoso Authenticated and [facility]
--- NOTE | 2025-03-24 14:43 | CT_ITS ---
FINAL REPORT TECHNIQUE: Thin section axial CT with sagittal reconstruction without contrast This study was performed with techniques to keep radiation doses as low as reasonably achievable, (ALARA). Individualized dose reduction techniques using automated exposure control or adjustment of mA and/or kV according to the patient''s size were employed. CLINICAL HISTORY: trauma FINDINGS: No fracture is seen. Alignment is normal. There is mild endplate spurring at C5-6. No obvious bony spinal canal stenosis is present. No gross disk abnormalities are seen. IMPRESSION: No fracture or malalignment Reviewed, Interpreted and Dictated by Steve Meyer MD Transcribed by Trinidad Fregoso Authenticated and [facility]
[2025-03-24 14:51] VITALS: BP 131/92; PULSE 90; O2SAT 99
[2025-03-24] MEDS: ORPHENADRINE CITRATE 60MG/2ML VIAL 60 MG IM (15:13)
[2025-03-24 15:14] LABS: Urine Pregnancy, HCG Qual. Negative (Negative)
[2025-03-24] MEDS: KETOROLAC 30MG/ML VIAL 30 MG IM (15:14)
--- OUTSIDE RECORDS SUMMARY | 2025-03-24 15:44 | XMS_ITS | Clinical Summary ---
Author Organization [facility] Address [address] [place] [address] Care Team Providers Care Ham Pumper Name Role Phone Pcp, No Primary Care Provider Unavailabl e Encounters Date Type Department Care Team Description 12/31/2024 9:03 AM EDT - 12/31/2024 11:59 PM EDT Hospital Encounter [facility] [address] [place] [address] Cervical spine pain; Cervical radiculopathy Discharge Disposition: Home or Self Care 12/31/2024 Travel from Last 3 Months Social History Tobacco Use Types Packs/Day Years Used Date Smoking Tobacco: Never Assessed Comments Unknown Sex and Gender Information Value Date Recorded Sex Assigned at Not on file Legal Sex Female 8:43 PM EDT Gender Identity Not on file Sexual Orientation Not on file Last Filed Vital Signs Vital Sign Reading Time Taken Comments Blood Pressure - - Pulse - - Temperature - - Respiratory Rate - - Oxygen Saturation - - Inhaled Oxygen Concentration - - Weight 96.6 kg (213 lb) 12/31/2024 9:39 AM EDT Height 167.6 cm (5' 6 ) 12/31/2024 9:39 AM EDT Body Mass Index 34.38 12/31/2024 9:39 AM EDT Plan of Treatment Upcoming Encounters Date Type Department Care Team (Late st Contact Info) Description 04/06/2025 11:35 AM EST Consult [facility] [address] [place] [address] Vaishnavi Chavarria PA [address] [place] [id number] Health Maintenance Due Date Last Done Comments [facility]-Depression Screening 1984 [facility]-HIV Screening 1984 [facility]-Hepatitis C Screening 1984 [facility]-/Child/Adol SDOH Screenings 1984 [facility]-Obesity Intervention 1990 [facility]-Varicella Vaccines (1 of 2 - 13+ 2-dose series) 1997 [facility]- SDOH Screenings 2002 [facility]-Adult SDOH Screenings 2002 [facility]-Hepatitis B Vaccines (1 of 3 - 19+ 3-dose series) 2003 [facility]-Pap Smear 2005 [facility]-Cervical Cancer Screening 2014 [facility]-HPV/Cotest 2014 [id number] Vaccine (3 - 2024- season) 2024 04/19/2022, 10/31/2021 [facility]-Influenza Vaccine (#1) 12/07/202401/10, 01/08/2022, 03/13/2017, Additional history exists [facility]-Zoster Vaccines (1 of 2) 2034 [facility]-DTaP,Tdap,and Td Vaccines (3 - Td or Tdap) 10/04/2034 10/04/2024, 04/25/2017 HPV Vaccines (No Doses Required) Completed [facility]-HIB Vaccines Aged Out No longer e [...] (6 to 49 Years) Aged Out No longer eligible based on patient's age to complete this topic [facility]-Rotavirus Vaccines Aged Out No lo nger eligible based on patient's age to complete this topic Procedures Procedure Name Priority Date/Time Associated Diagnosis Comments MR CERVICAL SPINE WO IV CONTRAST Routine 12/31/2024 10:06 AM EDT Cervical spine pain Cervical radiculopathy from Last 3 Months Results * MR Cervical Spine wo IV Contrast (12/31/2024 10:06 AM EDT) Anatomical Region Laterality Modality C-spine Magnetic Resonan ce Impressions 12/31/2024 2:41 PM EDT No acute abnormality. Spinal cord normal. Moderate C3-4 canal stenosis and additional multilevel degeneration as discussed above. Lorenzo Gannon M.D. This report has been electronically signed and verified by the Radiologist whose name is printed above. This report contains privileged and confidential information and is intended solely for the use of the individual or entity to which it is addressed. If you are not the intended recipient of this report, you are hereby notified that any copying, distribution, dissemination or action taken in relation to the contents of this report is strictly prohibited and may be unlawful. If you have received this report in error, please notify the sender immediately at [phone] and permanently delete the original report and destroy any copies or printouts. Narrative 12/31/2024 2:41 PM EDT [facility] - Phone Outpatient NAME: Sarita Contreras DATE OF EXAM: 12/31/2024 Patient No: [id number] Physician: Festus^Paresh^J Date of : 1985 Past Medical/Surgical History (entered by technologist): Symptoms/Reason For Exam (entered by technologist): C EXAM: MRI cervical spine without intravenous contrast INDICATION: 39-year-old female with neck pain. TECHNIQUE: Multiplanar, multisequence magnetic resonance imaging of the cervical spine was performed without intravenous contrast on a 1.5 Abril magnet. COMPARISON: None FINDINGS: No acute fracture or dislocation. Straightening of normal cervical lordosis without spondylolisthesis. Bone marrow signal intensity is preserved. Vertebral body heights and disc spaces are preserved. Diffuse disc desiccation. Spinal cord is normal. C2-3: No neuroforaminal narrowing or canal stenosis. C3-4: Moderate spinal canal stenosis (7 mm) secondary to a circumferential disc bulge and ligamentum flavum thickening. Moderate to severe left and moderate right neuroforaminal narrowing. C4-5: Severe bilateral neuroforaminal narrowing. Mild to moderate canal stenosis (8 mm) secondary to a circumferential disc bulge and ligamentum flavum thickening. C5-6: Moderate to severe left and mild right neuroforaminal narrowing. Mild to moderate canal stenosis (8 mm) secondary to a circumferential disc bulge and ligamentum flavum thickening. C6-7: No neuroforaminal narrowing. Mild canal stenosis (9 mm) secondary to a circumferential disc bulge and ligamentum flavum thickening. C7-T1: No neuroforaminal narrowing or canal stenosis. Procedure Note Lorenzo Gannon MD - 12/31/2024 [facility] - Phone Outpatient NAME: Sarita Contreras DATE OF EXAM: 12/31/2024 Patient No: [id number] Physician: Festus^Gene^J Date of : 1985 Past Medical/Surgical History (entered by technologist): Symptoms/Reason For Exam (entered by technologist): C EXAM: MRI cervical spine without intravenous contrast INDICATION: 39-year-old female with neck pain. TECHNIQUE: Multiplanar, multisequence magnetic resonance imaging of thecervical spine was performed without intravenous contrast on a 1.5 Teslamagnet. COMPARISON: None FINDINGS: No acute fracture or dislocation. Straightening of normal cervicallordosis without spondylolisthesis. Bone marrow signal intensity ispreserved. Vertebral body heights and disc spaces are preserved. Diffuse discdesiccation. Spinal cord is normal. C2-3: No neuroforaminal narrowing or canal stenosis. C3-4: Moderate spinal canal stenosis (7 mm) secondary to a circumferentialdisc bulge and ligamentum flavum thickening. Moderate to severe left andmoderate right neuroforaminal narrowing. C4-5: Severe bilateral neuroforaminal narrowing. Mild to moderate canalstenosis (8 mm) secondary to a circumferential disc bulge and ligamentumflavum thickening. C5-6: Moderate to severe left and mild right neuroforaminal narrowing.Mild to moderate canal stenosis (8 mm) secondary to a circumferential discbulge and ligamentum flavum thickening. C6-7: No neuroforaminal narrowing. Mild canal stenosis (9 mm) secondaryto a circumferential disc bulge and ligamentum flavum thickening. C7-T1: No neuroforaminal narrowing or canal stenosis. IMPRESSION: No acute abnormality. Spinal cord normal. Moderate C3-4 canal stenosisand additional multilevel degeneration as discussed above. Lorenzo Gannon M.D. This report has been electronically signed and verified by the Radiologistwhose name is printed above. This report contains privileged and confidential information and isintended solely for the use of the individual or entity to which it isaddressed. If you are not the intended recipient of this report, you arehereby notified that any copying, distribution, dissemination or actiontaken in relation to the contents of this report is strictly prohibitedand may be unlawful. If you have received this report in error, pleasenotify the sender immediately at [phone] and permanently delete theoriginal report and destroy any copies or printouts. us Paresh Mortensen DO IMG MRI PROCEDURES Final Result from Last 3 Months Insurance [address] [place] [address] [facility] Care Teams Ham Pumper Relationship Specialty Start Date End Date Pcp, [place] [address] PCP - General Family Medicine 12/31/24
--- OUTSIDE RECORDS SUMMARY | 2025-03-24 15:44 | XMS_ITS | Clinical Summary ---
Author Organization [facility] Address [address] [facility] [place] [address] Phone Care Team Providers Care Vineyardist Name Role Phone Say PETERSON MD, Sohail [...] Split (Incl. Purified Surface Antigen ) 01/10/2023,01/08/2022 [employer] SARS-CoV-2 Bivalent B ooster Vaccine 12+ Years [...] 2005 Pap Smear 2005 HPV/Pap Cotest 2014 Breast Cancer Screening 2024 COVID-19 Vaccine ( season) 2024 04/19/2022 Influenza Vaccine (#1) 2024 , 01/08/2022, 01/09/2019, Additional history exists DTaP/TDaP/Td (2 - Td or Tdap) 04/25/2027 04/25/2017 Meningococcal B Vaccine Aged Out No l onger eligible based on patient's age to complete this topic Pneumococcal Vaccine 0-49 Aged Out No longer eligible based on patient's age to complete this topic Insurance [facility] [address] [place], [place] [address] * Guarantor: ESAU CONTRERAS Account Type Relation to Patient Date of Phone Billing Address [employer] [id number] EMPL[employer] [facility] [place] [address] [facility] Care Teams Vineyardist Relationship Specialty Start Date End Date Sohail Deal III, MD [address] [place] [id number] PCP - General Family Medicine 03/15/15
--- OUTSIDE RECORDS SUMMARY | 2025-03-24 15:44 | XMS_ITS | Clinical Summary ---
Author Organization [facility] Address [address] [place] [address] Care Team Providers Care Net Solutions Architect Name Role Phone Sohail Deal MD Primary Care Provid er Allergies Active Allergy Reactions Criticality Noted Date Comments Sulfa Antibiotics Hives,Rash Medium 03/29/2016 Medications ondansetron ODT (ZOFRAN-ODT) [address] 1 tablet on the tongue Every 4 (Four) to 6 (Six) Hours. 10 tablet 1 10/22/2024 9:35 AM EDT 5 Active HYDROcodone-acetami nophen (NORCO) 7.5-325 MG per tablet Take 1 tablet by mouth Every 6 (Six) Hours As Needed. 6 tablet 10/22/2024 9:35 AM EDT 5 Active Family History Medical History Relation Name Comments Sleep apnea Father Cancer Maternal Grandmother Diabetes Mother Hypertension Mother Obesity Mother Relation Name Status Comments Father Maternal Grandmother Mother Social History Tobacco Use Types Packs/Day Years Used Date Smoking Tobacco: Never Smokeless Tobacco: Never Alcohol Use Standard Drinks/Week Comments No 0 (1 standard drink = 0.6 oz pur e alcohol) Abuse Screen Answer Date Recorded Unsafe at Home or Work/School Not on file Feels Threatened by Someone? Not on file 02/2023 Does Anyone Keep You from Co ntacting Others or Doint Things Outside the Home? Not on file 01/16/2023 Physical Sign of Abuse Present Not on file 1 Housing Stability Answer Date Recorded Current Living Arrangements Not on file 01/06 Potentially Unsafe Housing Conditions Not on brenda e 01/16/2023 Family and Community Support Answer Israel e Recorded Help with Day-to-Day Activities Not on file 01/16/2023 Lonely or Isolated Not on file 01/16/2023 Employment Answer Date Recorded Do you want help finding or keeping work or a jaquelin b? Not on file 01/16/2023 Disabilities Answer Date Recorded Concentrating, Remembering, or Making Decisions Difficulty Not on file 01/16/2023 Doing Errands Independently Difficulty Not on fi le 01/16/2023 Education Answer Date Recorded Help with school or training? Not on file Preferred Language Not on file 01/16/2023 Comments Unknown Sex and Gender Information Value Date Recorded Sex Assigned at Not on file Legal Sex Female 12:41 AM EDT Gender Identity Not on file Sexual Orientation Not on file Last Filed Vital Signs Vital Sign Reading Time Taken Comments Blood Pressure - - Pulse - - Temperature - - Respiratory Rate - - Oxygen Saturation - - Inhaled Oxygen Concentration - - Weight 180 kg (396 lb) 01/19/2014 10:31 AM EDT Height - - Body Mass Index - - Plan of Treatment Health Maintenance Due Date Last Done Comments ANNUAL PHYSICAL 1985 Annual Gynecologic Pelvic an d Breast Exam 1984 HEPATITIS C SCREENING 1984 TDAP/TD VACCINES (1 - Tdap) 2003 MAMMOGRAM 2024 INFLUENZA VACCINE 11/06/2024 01/10/2023, 01/08/2022 Pneumococcal Vaccine 0-49 Aged Out No longer eligible based on patient's age to complete this topic [place] [address] [place] [address] EMPLOYEE Care Teams Net Solutions Architect Relationship Specialty Start Date End Date Sohail Deal MD [address] [place] [address] PCP - General 07/30/15
[2025-03-24] MEDS: DEXAMETHASONE 4MG/ML 1ML VIAL 10 MG IM (16:36)
[2025-03-24 17:20] VITALS: BP 135/65; PULSE 74; RESP 16; TEMP 36.7; O2SAT 99
== END 2025-03-24 17:20 | disposition home or self-care (01) ==
PROVIDERS: Nurse Practitioner Family; Emergency Provider Emergency Medicine; PCP Nurse Practitioner
DX: S16.1XXA Strain of muscle, fascia and tendon at neck level, initial encounter (principal); M54.2 Cervicalgia; R51.9 Headache, unspecified; W10.8XXA Fall (on) (from) other stairs and steps, initial encounter
CPT/HCPCS: 70450; 72125; 81025; 96372; 99285; J1100; J1885; J2360